=== PATIENT | female | born 1950 | race Caucasian/White ===

== ENCOUNTER 2018-04-30 10:39 | Emergency (ER) | payer MEDICARE, BC, SELFPAY ==
[2018-04-30 10:41] VITALS: BP 203/101; PULSE 74; RESP 16; TEMP 36.3; O2SAT 100; BMI 20.7
--- NOTE | 2018-04-30 11:32 | CT_ITS ---
STUDY: CT ABDOMEN AND PELVIS WITH CONTRAST REASON FOR EXAM: Female, 68 years old. Left inguinal pain. RADIATION DOSAGE (If Supplied By Facility): CTDIvol = ( 9.57 ) mGy, DLP = ( 271.03 ) mGycm TECHNIQUE: Transaxial images were obtained from the dome of the diaphragm to the symphysis pubis without oral contrast. 80ML ml of Isovue 300 contrast was administered. Sagittal and coronal images were reconstructed. Individualized dose optimization techniques were used for this CT. COMPARISON: Comparison is made with prior study dated December 06, 2014. FINDINGS: The visualized lung bases are unremarkable. The visualized portions of the heart are within normal limits. There is a 1.4 cm cyst in the left lobe of liver. 1 cm cyst is also seen along the anterior peripheral aspect of the right lobe of the liver. Normal gallbladder and extrahepatic biliary system. Normal spleen. Normal pancreas. Normal bilateral adrenal glands. Normal right kidney. Subcentimeters cysts are seen in the upper pole of the left kidney. Subcentimeter cyst in the lower pole of the left kidney as well. Normal visualized stomach. Normal small intestine. Normal colon. The appendix is visualized and appears normal. There is scattered atherosclerotic calcification of the abdominal aorta, without a demonstrated aneurysm. Normal inferior vena cava. Normal retroperitoneum. Normal urinary bladder. Small lymph nodes are seen in the inguinal regions bilaterally. Normal abdominal wall. There are degenerative changes of the visualized lumbar spine. CT/Abdomen/Pelvis W IV Cont ONLY IMPRESSION: Small hepatic cysts. Small left renal cysts. Electronically Signed: Alexander Alcala MD at 12:55 EST Tel [phone], Service support ,
[2018-04-30] MEDS: 0.9% Normal Saline 1,000 ML 1000 ML IV (11:50)
[2018-04-30] MEDS: Ondansetron 4 MG/2 ML Vial IV (11:51)
[2018-04-30] MEDS: Morphine 4 MG/ML Syringe IV ×2 (11:51→14:02)
[2018-04-30 12:03] LABS: Absolute Lymphocyte Count 1.07 X10^3/ul (0.83-4.51); Absolute Neutrophil Count 4.9 X10^3/uL (2.0-7.7); Basophil# 0.02 X10^3/uL; Basophil% 0.3 % (0-1); Eosinophil# 0.12 X10^3/uL; Eosinophils% 1.8 % (0-5); Hematocrit 41.5 % (37-47); Hemoglobin 14.1 g/dl (12.0-15.0); Lymphocyte # 1.07 X10^3/ul (4.0); Lymphocyte % 16.2 % (19-41); Mean Corpuscular Hgb 29.9 pg (27.0-32.0); Mean Corpuscular Volume 88.1 fL (81-99); Monocyte# 0.53 X10^3/uL; Neutrophil # 4.87 X10^3/uL (2.7-7.7); Neutrophil % 73.5 % (47-70); Platelet Count 199 K/mm3 (150-450); RBC Distribution Width CV 12.7 % (11.6-14.6); RBC Distribution Width SD 40.2 fl (35.1-43.9); Red Blood Count 4.71 M/mm3 (4.2-5.4); White Blood Count 6.6 K/mm3 (4.4-11.0)
[2018-04-30 12:04] LABS: POSITIVE COUNT NO; POSITIVE DIFFERENTIAL NO; POSITIVE MORPHOLOGY NO
[2018-04-30 12:12] LABS: Anion Gap 8 (5-15); BUN 17 mg/dL (7-18); BUN/Creat Ratio 23.8 RATIO (10-20); Calcium,Total 9.3 mg/dL (8.5-10.1); Chloride 106 mmol/L (98-107); Creatinine, Serum 0.72 mg/dL (0.55-1.02); EST Glomerular Filtration Rate 86 mL/min (>60); Est Glom Filt Rate - Afr Amer 104 mL/min (>60); Estimated Creatinine Clearance 39.71 ml/min; Glucose 90 mg/dL (74-106); Potassium 3.5 mmol/L (3.5-5.1); Sodium Level 141 mmol/L (136-145)
--- NOTE | 2018-04-30 12:48 | ED.VISSUMM ---
- ER Visit Summary Date of Service: 04/30/18 Chief Complaint: Lower abdominal pain History of Present Illness: The patient is a [address] Durham. She reports that she has low back pain. However, when asked about the location of that she points to the left buttock and the left inguinal region. She reports that radiates down the front of her left leg to her knee. States it is been present since April 17, but has gotten much worse today. It is a sharp pain that is 10 out of 10 severity. Is worsened by twisting, bending, or standing. She relieved partially by remaining still. She denies any numbness or weakness in her legs. No problems with her bowels or her bladder. No groin numbness. She does report that she has had a change in activity. 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 No fall or MVA. Patient denies any fever, chills, dysuria, frequency, or other complaints. Physical Examination: Vitals: Stable. Afebrile. General: Well-nourished and well-developed. Head: Normocephalic atraumatic. Neck: Supple, no lymphadenopathy. No JVD. Nontender. Cardiovascular: Regular rate and rhythm. No murmurs. Respiratory: No respiratory distress. Clear to auscultation bilaterally. Abdominal: Soft, moderate tenderness palpation in the left inguinal region, nondistended, normal bowel sounds. No guarding, rebound, or peritoneal signs. Back: Nontender. No vertebral tenderness. No pain in the sciatic notch over the left buttock. Extremities: Nontender, no edema. 2+ dorsalis pedis pulse bilaterally. Negative straight leg raise bilaterally. Skin: Normal color, no rash. Neurologic: Alert and oriented ?3. Cranial nerves II through XII are intact. Normal strength and sensation. 5 out of 5 dorsiflexion, plantarflexion, extensor hallucis longus bilaterally. Psych: Normal affect. Test Results: CBC is remarkable for segmented neutrophils of 74 lymphocytes of 16. Chem-7 is normal. Clinical Impression(s) from Imaging Studies Abdomen/Pelvis CT 04/30/18 11:32 IMPRESSION: Small hepatic cysts. Small left renal cysts. Electronically Signed: Alexander Alcala MD at 12:55 EST Tel [phone], Service support , Emergency Department Course and Treatment: Patient was treated with morphine and Zofran. She has had some improvement, but still continues to experience pain Treatment Plan: At this time I do not have an explanation for the patient's pain. She will be discharged with Percocet and Colace. Instructed for Dr. Durham in 1-2 days if not improving. Return to the emergency department for any worsening symptoms. Disposition: To home in improved and stable condition. Impression: 1. Left inguinal pain, uncertain cause. This note was generated with [employer] dictation software. It may contain incorrect words, spelling, and punctuation that were not noted in review of the chart prior to signing ED Disposition - Plan for ED Patient: Disposition: Home or Assisted Living Chief Complaint: Back Instructions: ED Abdominal Pain Unkn Cause Prescriptions: Oxycodone HCl/Acetaminophen [Percocet 5/325] 1 tablet PO Q6H PRN PRN 5 Days #20 tablet PRN Reason: Pain Docusate Sodium [Colace] 100 mg PO DAILY #20 capsule Referrals: Tammie Durham MD [COURTESY STAFF PHYSICIAN] - 3-5 Days if not improving
[2018-04-30 13:56] VITALS: BP 181/108; PULSE 71; RESP 16; O2SAT 100
[2018-04-30] MEDS: oxyCODONE 5 MG Tablet PO (14:26)
== END 2018-04-30 14:28 | disposition home or self-care (01) ==
LOC: ED 11:35
PROVIDERS: Emergency Provider Emergency Medicine
DX: R10.32 Left lower quadrant pain (principal)
CPT/HCPCS: 74177; 80048; 85025; 96361; 96374; 96375; 96376; 99285; J7030; Q9967; A4216; J2405

== ENCOUNTER 2018-05-02 17:06 | Emergency (ER) | payer MEDICARE, BC, SELFPAY ==
[2018-05-02 17:09] VITALS: BP 215/92; PULSE 63; RESP 16; TEMP 36.9; O2SAT 98; BMI 22.5
--- NOTE | 2018-05-02 17:39 | ED.VISSUMM ---
- ER Visit Summary Date of Service: 05/02/18 Chief Complaint: Left inguinal pain History of Present Illness: The patient is a 68 F presenting with left inguinal pain. This started approximately 1 week ago. Patient states she has been doing a lot of lifting of her mother. She is bedbound. She states when she picks her up she twists. She states she believes she may have pulled something while lifting. She was seen in the ED on April 30 for similar complaints. She had blood work and CT abdomen pelvis which were unremarkable. She was given a prescription for Percocet. She states this did not help and she is now using Excedrin. She denies fever. Denies chest pain or shortness of breath. Denies nausea or vomiting. Denies diarrhea or constipation. Denies urinary complaints. Denies back pain. Denies weakness or numbness. Denies incontinence. Denies other complaints. Physical Examination: Vitals are stable. Patient is afebrile. Alert no acute distress. HEENT exam is unremarkable. Neck is supple. Lungs are clear and equal bilaterally. Heart is regular rate and rhythm. Abdomen is soft nontender nondistended. No guarding or rebound. Left inguinal tenderness with no hernia palpated. Back nontender, negative straight leg raise Extremities nontender, normal distal pulse, no calf tenderness Skin is warm and dry. No rash No focal neurologic deficit. Normal strength and sensation Remainder of exam is unremarkable. Emergency Department Course and Treatment: Patient is given morphine, Zofran IM. She continues to have pain and was given Valium p.o. She states this improved her pain. She continues to have pain but declines admission. She is able to walk to the bathroom. She was given a prescription for Valium. She is advised to follow-up with her primary care physician tomorrow. She is advised return to ED for any worsening complaints. Disposition: Discharge home Impression: Left groin strain This note was generated with [employer] dictation software. It may contain incorrect words, spelling, and punctuation that were not noted in review of the chart prior to signing ED Disposition - Plan for ED Patient: Chief Complaint: Abd Pain Referrals: Tammie Durham MD [COURTESY STAFF PHYSICIAN] -
[2018-05-02] MEDS: Ondansetron 4 MG/2 ML Vial IM (17:55)
[2018-05-02] MEDS: morphine 10 MG/ML Syringe 8 MG IM (17:55)
[2018-05-02] MEDS: diazePAM 5 MG Tablet 2.5 MG PO (18:54)
--- NOTE | 2018-05-02 19:26 | ED.DEP ---
ED Disposition - Plan for ED Patient: Chief Complaint: Abd Pain Instructions: ED Strain Groin Prescriptions: Diazepam [Valium] 2 mg PO BID PRN PRN #10 tablet PRN Reason: Vertigo Referrals: Anu Vega DO [Primary Care Provider] -
[2018-05-02 19:33] VITALS: BP 143/72; PULSE 61; RESP 16; O2SAT 97
== END 2018-05-02 19:35 | disposition home or self-care (01) ==
LOC: ED 18:07
PROVIDERS: Emergency Provider Emergency Medicine; Family Provider Internal Medicine; PCP Internal Medicine
DX: S39.011A Strain of muscle, fascia and tendon of abdomen, initial encounter (principal); X50.3XXA Overexertion from repetitive movements, initial encounter; Y93.89 Activity, other specified
CPT/HCPCS: 96372; 99284; J2405

== ENCOUNTER → 2018-05-03 10:31 | Outpatient (CLI) | payer MEDICARE, BC, SELFPAY ==
--- NOTE | 2018-05-03 10:36 | RAD_ITS ---
STUDY: X-RAY - PELVIS AND LEFT HIP REASON FOR EXAM: Female, 68 years old. Hip pain after lifting a person. TECHNIQUE: Radiological exam, hip, unilateral, with pelvis when performed; 2 or 3 views. COMPARISON: CT of the abdomen and pelvis, April 30, 2018 and December 06, 2014. FINDINGS: There is a non-specific bowel gas pattern. Normal visualized soft tissue structures. There are atherosclerotic vascular calcifications. Normal bilateral iliac wings, sacroiliac joints and visualized sacrum. Normal bilateral superior and inferior pubic rami. Normal pubic symphysis. Normal bilateral ischial tuberosities. Normal visualized left femoral head. Normal left acetabulum. Normal left hip joint. RAD/HIP, UNI W/ Pelvis 2-3 Views IMPRESSION: Normal x-ray examination of the pelvis and left hip. Electronically Signed: Troy Mcdonald DO at 17:10 EST Tel [phone], Service support ,
--- NOTE | 2018-05-03 10:36 | RAD_ITS ---
STUDY: X-RAY - LUMBAR SPINE REASON FOR EXAM: Female, 68 years old. Lower back pain after lifting. TECHNIQUE: 5 view(s) of the lumbar spine were obtained. COMPARISON: CT of the abdomen and pelvis, December 06, 2014 and April 30, 2018. FINDINGS: Normal lumbar lordosis. There is no substantial scoliosis. There is anterolisthesis of L4 and L5 which is unchanged from the prior exam. The remainder the alignment is preserved. There is mild endplate spondylosis and disc space narrowing at multiple levels. This appears unchanged in degree from the there is facet joint degenerative change. There is no evidence of acute fracture or loss of vertebral axial height. There is no demonstrated spondylolysis of the pars interarticulares. There is atherosclerotic calcification of the abdominal aorta without a demonstrated aneurysm. RAD/L/S Spine Min 4 Views IMPRESSION: Stable degenerative changes of the lumbar spine. Electronically Signed: Troy Mcdonald DO at 17:12 EST Tel [phone], Service support ,
== END ==
PROVIDERS: Family Provider Internal Medicine; PCP Internal Medicine; Referring Provider Nurse Practitioner Gerontology; Visit Provider Nurse Practitioner Gerontology
DX: M25.552 Pain in left hip (principal); M47.896 Other spondylosis, lumbar region
CPT/HCPCS: 72110; 73502

== ENCOUNTER → 2018-05-19 12:23 | Outpatient (CLI) | payer MEDICARE, BC, SELFPAY ==
--- NOTE | 2018-05-19 12:38 | MRI_ITS ---
STUDY: MRI BILATERAL HIPS T PELVIS REASON FOR EXAM: Left hip/leg pain for 4 weeks. TECHNIQUE: Standardized fat and water weighted pulse sequences were obtained in all 3 orthogonal planes. COMPARISON: Radiographs 05/03/2018. FINDINGS: RIGHT HIP Normal hip joint without articular joint space narrowing. There is a small subchondral cyst in the anterior right acetabulum. Normal right labrum. Normal right femoral head. Normal right femoral neck and intratrochanteric region. Normal right gluteus minimus, medius and iliopsoas tendons and distal insertions. Normal right superior and inferior pubic rami. Normal right pubic symphysis. Normal right ischial tuberosity. Normal origin of the right hamstring tendons. Normal visualized right iliac wing, sacroiliac joint, and sacral ala. LEFT HIP Normal left hip joint without articular joint space narrowing. Normal left acetabulum. Normal left labrum. Normal left femoral head. Normal left femoral neck and intratrochanteric region. Normal left gluteus minimus, medius and iliopsoas tendons and distal insertions. Normal left superior and inferior pubic rami. Normal left pubic symphysis. Normal left ischial tuberosity. Normal origin of the left hamstring tendons. Normal visualized left iliac wing, sacroiliac joint, and sacral ala. There is a low-grade strain of the left obturator externus muscle (T2 axial images 29, 30). There is also a low-grade strain of the distal left lumbar paraspinous musculature (inversion recovery coronal image 6; T2 axial images 6, 7). MRI/Pelvis (Routine) IMPRESSION: Low-grade strains of the left obturator externus muscle and distal left lumbar paraspinous musculature. Electronically Signed: Wilmar Soliman MD at 15:06 EST Tel , Service support ,
--- NOTE | 2018-05-19 12:39 | MRI_ITS ---
STUDY: MRI LUMBAR SPINE WITHOUT CONTRAST REASON FOR EXAM: Female, 68 years old. LBP Lower Back Pain MRI - Lumbar. TECHNIQUE: Standardized fat and water weighted pulse sequences were obtained in the sagittal and axial planes. COMPARISON: X-ray dated May 03, 2018 FINDINGS: T12-L1: Normal endplates. Normal disc height, hydration and morphology. Normal bilateral facet joints. Normal central canal and bilateral lateral recesses. Normal bilateral intervertebral neural foramina. Normal lumbar lordosis. There is no substantial scoliosis. Normal conus medullaris that terminates at the T12 L1-2: Normal endplates. Normal disc height, hydration and morphology. Normal bilateral facet joints. Normal central canal and bilateral lateral recesses. Normal bilateral intervertebral neural foramina. L2-3: There is minimal disc space narrowing and endplate spondylosis. There is no significant disc herniation, central canal or foraminal stenosis. L3-4: There is mild disc space narrowing and endplate spondylosis. There is a mild disc bulge and facet arthropathy without significant central canal stenosis. There is a left foraminal protrusion with severe left foraminal stenosis. There is mild right foraminal stenosis. L4-5: There is moderate disc space narrowing and endplates spondylosis. There is extensive facet arthropathy with grade 1 anterolisthesis and mild disc bulge with mild central canal stenosis. There is mild bilateral foraminal stenosis. L5-S1: There is minimal disc space narrowing and endplates spondylosis. There is moderate facet arthropathy Normal visualized sacral ala. Normal visualized paraspinous soft tissue structures. MRI/Spine Lumbar (Routine) IMPRESSION: L3/L4: Disc protrusion with severe left foraminal stenosis. L4/L5: Severe facet arthropathy with grade 1 anterolisthesis. Electronically Signed: Haylie Hernandez MD at 11:52 EST Tel , Service support ,
--- OUTSIDE RECORDS SUMMARY | 2018-07-14 21:32 | XMS RPT_ITS | Continuity of Care Document ---
:1950 Author Organization [facility] Address [address] [place] [address] Phone Care Team Providers Name Role Phone Taniakellyanh GONZALEZOmaira E Unavailable Tammie Durham MD Unavailable Kiko Magana Unavailable Alexandra Julian Unavailable Unavailable Unavailable Unavailable Problems Name Dates Details Anxiety (F41.9, 300.00) Comments: doing much bbtter.BP down ativan now use rarely Status: Active Back pain, lumbosacral (M54.5, 724.2) Status: Active Body mass index (BMI) less than 19 (Z68.1, V85.0) Status: Active Body mass index (BMI) of 19.0-19.9 in adult (Z68.1, V85.1) Status: Active 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 Status: Active Hyperlipidemia (E78.5, 272.4) Comments: reveiwed with patient recent tests and betterthan was before. Status: Active Hypertension (I10, 401.9) Comments: think related stress so bbkler until get on celexa. Status: Active Left hip pain (M25.552, 719.45) Status: Active Pregnancies () Comments: 1 Status: Active Sciatica, left side (M54.32, 724.3) Comments: some relief with medrol, but parasthesia continues on left leg, MRI pending, ok to restart physical thearapy pt will get apt with José Status: Active Medications Name Dates Details DiazePAM 2 MG Oral Tablet Active 1 bid prn (2 MG) Gabapentin 300 MG Oral Capsule 1 (one) Capsule tid starting 05/13/18 for 30 days Quantity: 90 {Capsule} Refills: 0 Ordered:11-May-2018 Omaira Villeda CNP, CNP Lynda Start : 11-May-2018 Active Comments:Dx Code -- M54.32Okay to fill new script 05/15/18Changed dose from 1 daily to1 bid x 2 days (05/11 and 05/12)1 tid there after (05/13-there after)Will finish the fill from 05/03/18 before filling this new script, so can fill this script 05/18/18. OAARS ranNINETY NINETY NINETY NINETY Medrol 4 MG Oral Tablet Therapy Pack 1 (one) Milligram TAD for 0 days Quantity: 1 {Package} Refills: 0 Ordered:18-May-2018 Omaira Villeda CNP, CNP Lynda Start : 18-May-2018 Active Comments:with food Meloxicam 7.5 MG Oral Tablet 1 (one) Tablet Tablet PO QD for 30 days Quantity: 30 {Tablet} Refills: 0 Ordered:03-May-2018 Alexandra Julian Start : 03-May-2018 Active Comments:Take with food Oxycodone-Acetaminophen 5-325 MG Oral Tablet 1 (one) Tablet Tablet q8hrs prn for 7 days Quantity: 21 {Tablet} Refills: 0 Ordered:12-May-2018 Alexandra Julian Start : 12-May-2018 Active Comments:Oarrs run M25.552 Acute left hip painTwenty one AMOXICILLIN, 875MG (Oral Tablet) 1 Tablet bid for 10 days Quantity: 20 {Tablet} Refills: 0 Ordered:22-Jan-2012 Tammie Durham MD Start : 22-Jan-2012 End : 01-Feb-2012 Inactive Ativan 0.5 MG Oral Tablet 1 Tablet qd prn for 0 days Quantity: 30 {Tablet} Refills: 0 Ordered:03-May-2018 Ekaterina Fajardo LPN Start : 13-Jul-2015 End : 03-May-2018 Inactive Comments:thirty CeleXA 20 MG Oral Tablet 1 Tablet qd for 0 days Quantity: 30 {Tablet} Refills: 3 Ordered:03-May-2018 Ekaterina Fajardo LPN Start : 10-Aug-2015 End : 03-May-2018 Inactive PREDNISONE, 20MG (Oral Tablet) Tablet daily for 0 days Quantity: 7 {Tablet} Refills: 0 Ordered:20-May-2010 Terri Ye LPN Start : 16-Mar-2009 End : 20-May-2010 Inactive TOPROL XL, 25MG (Oral Tablet Extended Release 24 Hour) 1 (one) Tablet ER 24HR daily for 0 days Quantity: 30 {Tablet} Refills: 0 Ordered:13-Jul-2015 Tammie Durham MD Start : 13-Jul-2015 End : 13-Jul-2015 Inactive ZITHROMAX Z-YOLANDA, 250MG (Oral Tablet) 1 Tablet uad for 0 days Refills: 0 Ordered:20-May-2010 Terri Ye LPN Start : 16-Mar-2009 End : 20-May-2010 Inactive Allergies and Adverse Reactions Name Dates Details No Known Drug Allergies (Allergy) Status: Active Past Medical History Name Dates Details Bronchitis (J40, 490) Status: Inactive as of 07-Jun-2015 Cough (R05, 786.2) Status: Inactive as of 07-Jun-2015 Elevated blood-pressure reading without diagnosis of hypertension (R03.0, 796.2) Status: Resolved as of 24-Jun-2010 Encounter for screening mammogram for breast cancer (Renamed from Visit for screening mammogram) (Z12.31, V76.12) Status: Inactive as of 13-Jul-2015 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, 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) Comments: 12-26 ct good Status: Resolved as of 02-Jan-2009 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 [place] [address] Fax REHABILITATION SERVICES INITIAL EVALUATION MR#: [id number] Acct: [id number] Name: ANNALISA CISNEROS Rep #: [id number] : 1950 68 From: Laura Anand PT, Cert. MDT Referring Dr.: ALIE Rich Status: REG RCR Insurance: [employer] PART A B [facility] Patient's Visit Information ANNALISA CISNEROS is a 68 year old F referred to Physical Therapy by ALIE Martini with a diagnosis of LEFT HIP PAIN, LEFT SCIATICA AND LUMBOSACRAL B ACK PAIN.. Date of Evaluation: 05/05/18 Physical Therapist: Laura Anand - Visit Plan Frequency: 2-3x /Week Duration: 4-6 Weeks Plan: MODALITIES NEEDED. POSTURE CORRECTION/STRENGTHENING, INSTRUCTI ON IN APPROPRIATE BODY MECHANICS AND ACTIVITY MODIFICATIONS. DLS STARTING WITH A NEUTRAL SPINE PROGRESSING ROM TOLERATED. HIEN LE ROM, STRETCHING AND STRENGTHENING. HEP INSTRUCTION. 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 OFF WORK CURRENTLY DUE TO MOTHER PASSING AWAY YESTERDAY AND HOPING SHE WILL BE ABLE TO GET BACK TO WORK NEXT Thursday05/11/18. Disability: N0. Present symptoms: LEFT BUTTOCK PAIN, LEFT GROIN PAIN, LEFT THIGH PAIN - STOPS AT THE KNEE. PATIENT ALSO HAS NUMBESS AND TINGLING IN THE FRONT OF HER LEFT THIGH. HER LEFT LEG DOESN'T REALLY FEEL WEAK THOUGH. SHE REPORTS SHE DOES NOT HAVE ANY LOW BACK PAIN AND THAT SHE HAS BEEN TRYING TO TELL EVERYONE THAT. NO RIGHT LE SX'S. Present since: APR 14 2018. Pain Scale: WORST 10/10, LEAST 5/10. Currently: 5/10. Comme nced as a result of: NO APPARENT REASON. Symptoms at onset: LEFT BUTTOCK AND LEFT GROIN. Worse: RUNNING, TRYING TO STAND UP STRAIGHT, WALKING, LIFTING, TWISTING, GETTING IN/OUT OF CAR. TRYING TO SLEEP I N BED. Better: LYING ON COUCH WITH HEAD UP, HEAT, EXCEDERIN, OXICODONE, GABAPENTIN, MALOXICAM. Disturbed sleep: YES. Previous history/Previous treatment: NO BACK SURGERY. NO CORINNE, NO CHIRO. NO PHYSICAL T HERAPY. PATIENT DENIES ANY HISTORY OF LOW BACK PROBLEMS. PATIENT ALSO DENIES ANY HISTORY OF HIP PROBLEMS. Coughing/sneezing/straining: NO. Gait: PATIENT REPORTS WALKING IS DIFFICULT AND SHE CAN NOT WALK AT A NORMAL PACE AND SHE CAN NOT STAND UP STRAIGHT. SHE LIMPS BECAUSE OF THE PAIN. Difficulty initiating urinatin: NO. Accidents: NO. Unexplained weight loss: NO. Imaging: NORMAL X-RAY OF PELVIS AND LE FT HIP. ABDOMINAL CAT SCAN ALSO APPEARS NORMAL. LUMBAR X-RAY 05/03/18: FINDINGS: Normal lumbar lordosis. There is no substantial scoliosis. There is. anterolisthesis of L4 and L5 which is unchanged from the prior exam. The. remainder the alignment is preserved. There is mild endplate spondylosis and disc space narrowing at multiple. levels. This appears unchanged in degree from the there is facet join t. degenerative change. There is no evidence of acute fracture or loss of. vertebral axial height. There is no demonstrated spondylolysis of the pars. interarticulares. There is atherosclerotic calcific ation of the abdominal aorta without a. demonstrated aneurysm. PMH: UNREMARKABLE. Recent major surgery: NO. PLOF (Prior Level of Function): UNLIMITED. - Objective Sitting/Standing Posture: POOR. PATIEN T IS UNABLE TO SIT OR STAND UP STRAIGHT. Lordosis: NORMAL. Lateral shift: NO. Relevant shift: N/A. Active Correction of posture: WORSE. Other Observations: INDEP GAIT INTO PT WITHOUT ANY ASSISTIVE DEVIC ES LIMPING ON THE LEFT LE AND WITH DECREASED CADANCE AND INCREASED TRUNK FLEX. NO FULLY EXTENDING LEFT HIP. Motor deficit: RIGHT LE STRENGTH 5/5 WITH MMT'ING EXCEPT RIGHT HIP 4/5 PROVOKING PAIN LEFT ANT ERIOR HIP. LLE STRENGTH: HIP 4/5 WITH ONLY MILD INCREASED PAIN WITH FLEX TESTING BUT NOT ABD, ADD, IR OR ER. , KNEE EXT 4+/5, KNEE FLEX 5/5, ANKLE DORSIFLEXION 4/5. LEFT ANTERIOR HIP PAIN WITH HIP FLEX TESTING BUT ONLY MILDLY INCREASES WITH MMT'ING OF THE REST OF HER LLE. Sensory deficit: NO. ROM deficit: DECREASED LEFT HIP EXTENSION IN STANDING. Reflexes: RIGHT LE 2/3, LEFT QUAD AND ACHILLES 1/2. Dur al Signs: POSTIVE LLE. NEGATIVE RIGHT. Lumbar mvmt loss: flex - MOD. ext - BUBBA. R SG - MOD. L SG - BUBBA. Core strength: POOR. Palpation: SHE REALLY DOES NOT HAVE ANY ACUTE TENDERNESS OF HER THORACIC SPIN E, LUMBAR SPINE, SACRAL AREAS, PELVIS, GREATER TROCH OR BUTTOCKS BUT SHE IS TENDER WITH PALPATION OF THE PROXIMAL LEFT FEMUR AND ANTERIOR HIP. TREATMENT: GAIT TRAINING WITH STRAIGHT CANE TO IMPROVE SAFE TY AND DECREASE LLE PAIN. PATIENT ABLE TO DEMO GOOD SEQUENCING AFTER INSTRUCTION GIVEN AND DEVIATIONS IMPROVED WITH CANE ALONG WITH SAFETY AND PAIN. PATIENT REPORTS SHE HAS A CANE AND WALKER AT HOME. - Goals Goal 1:: DECREASE C/O LLE SX'S. Goal Time Frame: 4-6 Weeks Goal 2:: IMRPOVE SITTING, STANDING, WALKING, BENDING, ADL AND SLEEP FUNCTION Goal Time Frame: 4- 6 Weeks Goal 3:: INSTRUCT IN PROPHYLAXIS Goal Time Frame: 4-6 Weeks - Rehabilitation Potential Rehabilitation Potential: Fair - Anticipated Interventions Patient/Client Instruction: Educate patient on: Condition, Plan of Care, Risk Factors, Benefits of Fitness Program For the Purpose of:: To improve self management Therapeutic Exercise to Include: Strength training, Body mechanics, Postural training, Flexibilty training, Gait and locomoto r training, Passive ROM, Active ROM, Dynamic Lumbar Stabilization For the Purpose of:: To decrease pain, To increase ROM, To improve muscle performance and motor function, To improve ability to perform ADL's, To increase tolerance to activity/condition/position, To improve ability of physical actions for home/community/work/leisure, To improve gait and locomotor functions Thermo therapy (hot pack): Harry ritter Ultrasound (thermal/non thermal): Yes For the Purpose of:: To decrease pain, To decrease swelling/inflammation, To increase ROM, To improve nutrient delivery to tissue Thank you for the opportunit y to evaluate your patient. For Medicare and Medicare HMO plans, please review the plan of care and approve it. It will need to be FAXED BACK to us at [phone] for Medicare purposes. Please let m e know if there are questions or concerns regarding this plan of care. Physician Signature: Date: <Electronically signed by Laura Anand PT, Cert. MDT> 05/05/18 1749 CC: ALIE Rich; Anu Vega DO RAFFI Signed For Medicare only, by signing this I certify the plan of care. Physicians Signature Date 03-May-2018 HIP, UNI W/ Pelvis 2-3 Views Result: Comments: See Note; NOTES: [facility] Imaging Services [address] [place] [address] HIP, UNI W/ Pelvis 2-3 Views MR#: [id number] Acct: [id number] Name: ANNALISA CISNEROS Rep #: [id number] : 1950 F 68 From: Troy Mcdonald DO PCP: Anu Vega DO Status: REG CLI Study: HIP, UNI W/ Pelvis 2-3 Views Date of Exam: 05/03/18 Exam# [id number] Ordering Dr: Terri Rich ST UDY: X-RAY - PELVIS AND LEFT HIP REASON FOR EXAM: Female, 68 years old. Hip pain after lifting a person. TECHNIQUE: Radiological exam, hip, unilateral, with pelvis when performed; 2 or 3 views. DENNY RISON: CT of the abdomen and pelvis, April 30, 2018 and December 06, 2014. FINDINGS: There is a non-specific bowel gas pattern. Normal visualized soft tissue structure s. There are atherosclerotic vascular calcifications. Normal bilateral iliac wings, sacroiliac joints and visualized sacrum. Normal bilateral superior and inferior pubic rami. Normal pubic symphysis. N ormal bilateral ischial tuberosities. Normal visualized left femoral head. Normal left acetabulum. Normal left hip joint. RAD/HIP, UNI W/ Pelvis 2-3 Views IMPRESSION: Normal x-ray examination of the pelvis and left hip. Electronically Signed: Troy Mcdonald DO at 17:10 EST Tel [phone], Service support , Fax CC: ALIE Rich; Anu Vega DO Material Damage Adjuster: Signed 03-May-2018 L/S Spine Min 4 Views Result: Comments: See Note; NOTES: [facility] Imaging Services [address] [place] [address] L/S Spine Min 4 Views MR#: [id number] Acct: [id number] Name: ANNALISA CISNEROS Rep #: [id number] : 1950 F 68 From: Troy Mcdonald DO PCP: Anu Vega DO Status: REG CLI Study: L/S Spine Min 4 Views Date of Exam: 05/03/18 Exam# [id number] Ordering Dr: Terri Rich STUDY: X-RAY - L UMBAR SPINE REASON FOR EXAM: Female, 68 years old. Lower back pain after lifting. TECHNIQUE: 5 view(s) of the lumbar spine were obtained. COMPARISON: CT of the abdomen and pelvis, December 06, 2014 and N ov2017. FINDINGS: Normal lumbar lordosis. There is no substantial scoliosis. There is anterolisthesis of L4 and L5 which is unchanged from the prior exam. T he remainder the alignment is preserved. There is mild endplate spondylosis and disc space narrowing at multiple levels. This appears unchanged in degree from the there is facet joint degenerative mercado ge. There is no evidence of acute fracture or loss of vertebral axial height. There is no demonstrated spondylolysis of the pars interarticulares. There is atherosclerotic calcification of the abdomina l aorta without a demonstrated aneurysm. RAD/L/S Spine Min 4 Views IMPRESSION: Stable degenerative changes of the lumbar spine. Electronically S igned: Troy Mcdonald DO at 17:12 EST Tel [phone], Service support , CC: ALIE Rich; Anu Vega DO Material Damage Adjuster: Signed 02-May-2018 Discharge Instruction Result: Comments: See Note; NOTES: [facility] Medical Records Department [address] [place] [address] Discharge Instruction 05/02/181925 MR#: [id number] Acct: [id number] Name: Kathy CISNEROS ROSAMARIA Rep #: [id number] : 1950 68 From: Ayleen Storm MD PCP: Anu Vega DO Status: REG ER ED Disposition - Plan for ED Patient: Chief Complaint: Abd Pain Instructions: ED Strain Groin Prescriptions: Diazepam [Valium] 2 mg PO BID PRN PRN #10 tablet PRN Reason: Vertigo Referrals: Anu Vega DO [Primary Care Provider] - What to do if you have Problems For any increased pain, s hortness of breath, bleeding, nausea or vomiting, chest pain, or any unexpected problems, contact your Primary Care Provider. Call [facility] ([phone]) or report to the closest Emergency Room . Call 911 if necessary. 05/02/181926 <Electronically signed by Ayleen Storm MD> Date Ayleen Storm MD Cosigner Signature (If Indicated): Date CC: Anu Gary STAFFORD 02-May-2018 Emergency Department Summary Result: Comments: See Note; NOTES: [facility] Medical Records Department [address] [place] [address] Emergency Department Summary 05/02/18 1739 MR#: [id number] Acct: [id number] Name: ANNALISA CISNEROS Rep #: [id number] : 1950 68 From: Ayleen Storm MD PCP: Anu Vega DO Status: REG ER - ER Visit Summary Date of Service: 05/02/18 Chief Complaint: Left inguinal pain Histo ry of Present Illness: The patient is a 68 F presenting with left inguinal pain. This started approximately 1 week ago. Patient states she has been doing a lot of lifting of her mother. She is bedbound. She states when she picks her up she twists. She states she believes she may have pulled something while lifting. She was seen in the ED on April 30 for similar complaints. She had blood work and CT abdomen pelvis which were unremarkable. She was given a prescription for Percocet. She states this did not help and she is now using Excedrin. She denies fever. Denies chest pain or shortness of breath. Denies nausea or vomiting. Denies diarrhea or constipation. Denies urinary complaints. Denies back pain. Denies weakness or numbness. Denies incontinence. Denies other complaints. Physical Examination : Vitals are stable. Patient is afebrile. Alert no acute distress. HEENT exam is unremarkable. Neck is supple. Lungs are clear and equal bilaterally. Heart is regular rate and rhythm. Abdomen is soft no ntender nondistended. No guarding or rebound. Left inguinal tenderness with no hernia palpated. Back nontender, negative straight leg raise Extremities nontender, normal distal pulse, no calf tenderness Skin is warm and dry. No rash No focal neurologic deficit. Normal strength and sensation Remainder of exam is unremarkable. Emergency Department Course and Treatment: Patient is given morphine, Zofra n IM. She continues to have pain and was given Valium p.o. She states this improved her pain. She continues to have pain but declines admission. She is able to walk to the bathroom. She was given a pres cription for Valium. She is advised to follow-up with her primary care physician tomorrow. She is advised return to ED for any worsening complaints. Disposition: Discharge home Impression: Left groin strain This note was generated with [employer] dictation software. It may contain incorrect words, spelling, and punctuation that were not noted in review of the chart prior to signing ED Disposition - Plan for ED Patient: Chief Complaint: Abd Pain Referrals: Tammie Durham MD [COURTESY STAFF PHYSICIAN] - What to do if you have Problems For any increased pain, shortness of breath, bleeding, naus ea or vomiting, chest pain, or any unexpected problems, contact your Primary Care Provider. Call [facility] ([phone]) or report to the closest Emergency Room. Call 911 if necessary. 1925 <Electronically signed by Ayleen Storm MD> Date Ayleen Storm MD Cosigner Signature (If Indicated): Date ____ CC: Anu Vega 07-Jun-2015 EKG ([id number]) Result: [MEASUREMENTS ANALYSIS] Date of Test: 06/07/2015 08:14:11; Heart Rate: 59; [place] Interval: 164; QRS: 100; QT Interval: 420; Corrected QT Interval (QTc): 419; P Wave Sedan: 25; QRS Wave Sedan: -1; T Wave Sedan : 42; Blood Pressure: 184/100 [ECG DIAGNOSTIC STATEMENTS] Date of Test: 06/07/2015 08:14:11; Summary: Sinus Bradycardia WITHIN NORMAL LIMITS 17-Dec-2014 Emergency Department Summary Result: Comments: See Note; NOTES: [facility] Medical Records Department [address] [place] [address] Emergency Department Summary MR#: [id number] Acct: [id number] Name: ANNALISA CISNEROS Rep #: [id number] : 1950 64 From: Ayleen Storm MD PCP: Tammie Durham MD Status: DEP ER DATE OF SERVICE: 12/06/2014 CHIEF COMPLAINT: Abdominal pain. HISTORY OF PRESENT ILLNESS : The patient is a 64-year-old female who complains of left-sided abdominal and flank pain, which started at 1:00 a.m. associated with nausea, no vomiting, no diarrhea. She denies hematuria. She stat es she has had a history of kidney stones and this feels similar. She denies fever, chills or other complaints. PHYSICAL EXAMINATION: VITAL SIGNS: Stable. Afebrile. GENERAL: Alert, in no acute dist ress. HEART: Regular rate and rhythm. LUNGS: Clear and equal. ABDOMEN: Soft, nontender, nondistended. No guarding or rebound. She has mild left CVA tenderness. Remainder of the exam is unremarkable . EMERGENCY DEPARTMENT COURSE: Urinalysis shows 0 white cells, 0-[address] flank shows a left hydro with a 3 mm calculus at the left UVJ. The patient was given 1 dose of morphine and Zofran wi th improvement of her symptoms. Her pain is down to 0/10. She is advised to follow up with Dr. Durham. She is given a prescription for a short course of Percocet and will be discharged. Advised to r eturn to the ED for worsening symptoms. IMPRESSION: Urolithiasis. DISPOSITION: The patient will be discharged. Ayleen Storm MD T: NTS JOB: [id number] 12/17/14 0716 <Electronica lly signed by Ayleen Storm MD> Date Ayleen Storm MD CC: Tammie Durham MD Date Dictated: 12/06/141556 Date Transcribed: 12/06/141556 Material Damage Adjuster: Signed 06-Dec-2014 Discharge Instruction Result: Comments: See Note; NOTES: [facility] Medical Records Department [address] [place] [address] Discharge Instruction 12/06/141550 MR#: [id number] Acct: [id number] Name: ANNALISA CISNEROS Rep #: [id number] : 1950 64 From: Ayleen Storm MD PCP: Tammie Durham MD Status: REG ER ED Disposition - Plan for ED Patient: Chief Complaint: Abd Pain Instructions: ED Kidney Stone W/ Colic Prescriptions: Oxycodone HCl/Acetaminophen [Percocet 5/325] 1 - 2 tablet PO Q4H PRN PRN #20 tablet PRN Reason: Pain What to do if you have Problems For any increased pain, shortness of breath, bleeding, nausea or vomiting, chest pain, or any unexpected problems, contact your doctor. Call [facility] ([phone]) or report to the closest Emergency Room. Call 911 if necessary. 12/06/14 1552 <Electronically signed by Ayleen Storm MD> Date Ayleen Storm MD Cosigner Signature (If In dicated): Date CC: Tammie Durham MD 06-Dec-2014 Abdomen/Pelvis without Cont Result: Comments: See Note; NOTES: [facility] Imaging Services [address] [place] [address] CAT Scan Report MR#: [id number] Acct: [id number] Name: ANNALISA CISNEROS Rep #: [id number] : 1950 F 64 From: Alexander Alcala MD PCP: Tammie Durham MD Status: REG ER Study: Abdomen/Pelvis without Cont Date of Exam: 12/06/14 Exam# [id number] Ordering Dr: Ayleen Storm MD S TUDY: CT ABDOMEN AND PELVIS WITHOUT CONTRAST REASON FOR EXAM: Female, 64 years old. Left lower abdominal and left flank pain. RADIATION DOSAGE (If Supplied By Facility): CTDIvol = ( 6.02 ) mGy, DLP = ( 288.51 ) mGycm TECHNIQUE: Transaxial images were obtained from the dome of the diaphragm to the symphysis pubis without oral contrast, and without intravenous contrast. Sagittal and coronal im ages were reconstructed. COMPARISON: Comparison is made with prior study dated January 11, 2007. FINDINGS: The visualized lung bases are unremarkable. The visualiz ed portions of the heart are within normal limits. Stable 1 cm cyst in the left lobe of the liver. Normal gallbladder and extrahepatic biliary system. Normal spleen. Normal pancreas. Normal bilate ral adrenal glands. Normal right kidney. There is engorgement of the left kidney with left perinephric stranding and thickening of the Gerota's fascia. A 2 mm calculus is seen in the lower pole praveen x of the left kidney. There is evidence of mild left hydronephrosis and hydroureter due to a 3 mm calculus at the left ureteral vesicle junction. There is a small hiatal hernia. Normal small intesti ne. Normal colon. The appendix is visualized and appears normal. There is diffuse atherosclerotic calcification of the abdominal aorta, without a demonstrated aneurysm. Normal inferior vena cava. No rmal retroperitoneum. Normal urinary bladder. Normal abdominal wall. There are mild degenerative changes of the visualized lumbar spine. IMPRESSION: Left hy dronephrosis and hydroureter due to a 3 mm calculus at left ureterovesical junction. There is evidence of left perinephric stranding and inflammatory changes with thickening of the left Gerota's fasci a. 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 run 18 miles a week Status: Active Living Situation Comments: , Lives with spouse Status: Active No Drug Use Status: Active Non Drinker/No Alcohol Use Status: Active Non Smoker/No Tobacco Use Status: Active Tobacco use: Never smoker. Status: Active Smoking Status Name Dates Details Never smoker Vital Signs Date Test Result Details :30 Temperature 98.4 f Comments: Method: Temporal Pulse 86 /min Comments: Pattern: Regular Respiration Rate 18 /min Comments: Pattern: Unlabored O2 SAT 98 % Comments: Room air BP Systolic 148 mm[Hg] Comments: Patient Position: Sitting; Cuff Location: Left Arm; Cuff Size: Standard BP Diastolic 92 mm[Hg] Comments: Patient Position: Sitting; Cuff Location: Left Arm; Cuff Size: Standard Weight 101 lb Height 60 in Body Mass Index Calculated 19.72 kg/m2 Body Surface Area Calculated 1.4 m2 :57 Temperature 98.1 f Comments: Method: Temporal Pulse 77 /min Comments: Pattern: Regular Respiration Rate 16 /min Comments: Pattern: Unlabored O2 SAT 99 % Comments: Room air BP Systolic 150 mm[Hg] Comments: Patient Position: Sitting; Cuff Location: Left Arm; Cuff Size: Standard BP Diastolic 94 mm[Hg] Comments: Patient Position: Sitting; Cuff Location: Left Arm; Cuff Size: Standard Weight 101 lb Height 60 in Body Mass Index Calculated 19.72 kg/m2 Body Surface Area Calculated 1.4 m2 :35 Temperature 97.8 f Comments: Method: Temporal Pulse 79 /min Comments: Pattern: Regular Respiration Rate 16 /min Comments: Pattern: Unlabored O2 SAT 96 % Comments: Room air BP Systolic 152 mm[Hg] Comments: Patient Position: Sitting; Cuff Location: Left Arm; Cuff Size: Standard BP Diastolic 88 mm[Hg] Comments: Patient Position: Sitting; Cuff Location: Left Arm; Cuff Size: Standard Weight 101 lb Height 60 in Body Mass Index Calculated 19.72 kg/m2 Body Surface Area Calculated 1.4 m2 :31 Temperature 97.6 f Comments: Method: Temporal Pulse 64 /min Comments: Pattern: Regular Respiration Rate 18 /min Comments: Pattern: Unlabored O2 SAT 99 % Comments: Room air BP Systolic 128 mm[Hg] Comments: Patient Position: Sitting; Cuff Location: Left Arm; Cuff Size: Standard BP Diastolic 84 mm[Hg] Comments: Patient Position: Sitting; Cuff Location: Left Arm; Cuff Size: Standard Weight 116 lb Height 60 in Body Mass Index Calculated 22.65 kg/m2 Body Surface Area Calculated 1.48 m2 :04 Temperature 97.9 f Comments: Method: Temporal Pulse 68 /min Comments: Pattern: Regular Respiration Rate 18 /min Comments: Pattern: Unlabored O2 SAT 98 % Comments: Room air BP Systolic 184 mm[Hg] Comments: Patient Position: Sitting; Cuff Location: Left Arm; Cuff Size: Standard BP Diastolic 100 mm[Hg] Comments: Patient Position: Sitting; Cuff Location: Left Arm; Cuff Size: Standard Weight 120 lb Height 60 in Body Mass Index Calculated 23.44 kg/m2 Body Surface Area Calculated 1.5 m2 :49 Temperature 98.2 f Comments: Method: Oral Pulse 72 /min Comments: Pattern: Regular Respiration Rate 18 /min Comments: Pattern: Unlabored BP Systolic 124 mm[Hg] Comments: Patient Position: Sitting; Cuff Location: Left Arm; Cuff Size: Standard BP Diastolic 78 mm[Hg] Comments: Patient Position: Sitting; Cuff Location: Left Arm; Cuff Size: Standard Weight 120 lb Height 60 in Body Mass Index Calculated 23.44 kg/m2 Body Surface Area Calculated 1.5 m2 :05 Pulse 68 /min Comments: Pattern: Regular Respiration Rate 20 /min Comments: Pattern: Unlabored BP Systolic 130 mm[Hg] Comments: Patient Position: Sitting; Cuff Location: Left Arm; Cuff Size: Large BP Diastolic 88 mm[Hg] Comments: Patient Position: Sitting; Cuff Location: Left Arm; Cuff Size: Large Weight 127 lb :30 Pulse 76 /min Comments: Pattern: Regular Respiration Rate 20 /min Comments: Pattern: Unlabored BP Systolic 184 mm[Hg] Comments: Patient Position: Sitting; Cuff Location: Left Arm; Cuff Size: Standard BP Diastolic 102 mm[Hg] Comments: Patient Position: Sitting; Cuff Location: Left Arm; Cuff Size: Standard Weight 132.4375 lb Height 60 in Body Mass Index Calculated 25.86 kg/m2 Body Surface Area Calculated 1.57 m2 :30 Temperature 97.6 f Comments: Method: Oral Pulse 84 /min Comments: Pattern: Regular Respiration Rate 18 /min Comments: Pattern: Unlabored O2 SAT 99 % Comments: Room air BP Systolic 144 mm[Hg] Comments: Patient Position: Sitting; Cuff Location: Left Arm; Cuff Size: Standard BP Diastolic 88 mm[Hg] Comments: Patient Position: Sitting; Cuff Location: Left Arm; Cuff Size: Standard Weight 126 lb Height 0 in Head Circumference 0.00 cm :19 Pulse 76 /min Comments: Pattern: Regular Respiration Rate 16 /min Comments: Pattern: Unlabored BP Systolic 118 mm[Hg] Comments: Patient Position: Sitting; Cuff Location: Left Arm; Cuff Size: Standard BP Diastolic 78 mm[Hg] Comments: Patient Position: Sitting; Cuff Location: Left Arm; Cuff Size: Standard Weight 126.0375 lb Height 0 in Head Circumference 0.00 cm :53 Temperature 98.2 f Comments: Method: Oral Pulse 72 /min Comments: Pattern: Regular Respiration Rate 18 /min Comments: Pattern: Unlabored BP Systolic 122 mm[Hg] Comments: Patient Position: Sitting; Cuff Location: Left Arm; Cuff Size: Standard BP Diastolic 78 mm[Hg] Comments: Patient Position: Sitting; Cuff Location: Left Arm; Cuff Size: Standard Weight 126.05 lb Height 60 in Body Mass Index Calculated 24.62 kg/m2 Body Surface Area Calculated 1.53 m2 Head Circumference 0.00 cm :13 Temperature 97.6 f Comments: Method: Oral Pulse 74 /min Comments: Pattern: Regular Respiration Rate 20 /min Comments: Pattern: Unlabored BP Systolic 120 mm[Hg] Comments: Patient Position: Sitting; Cuff Location: Left Arm; Cuff Size: Standard BP Diastolic 80 mm[Hg] Comments: Patient Position: Sitting; Cuff Location: Left Arm; Cuff Size: Standard Weight 125 lb Height 59 in Body Mass Index Calculated 25.25 kg/m2 Body Surface Area Calculated 1.51 m2 Head Circumference 0.00 cm Results Date Description Value Details :50 Basic Metabolic Profile (BMP) Comments: [facility] [id number] [place], [place], [id number] GAP 8 (Normal) Range: 5-15 CO2 27.0 mmol/L (Normal) Range: 21.0-32.0 CL 106 mmol/L (Normal) Range: 98-107 K 3.5 mmol/L (Normal) Range: 3.5-5.1 NA 141 mmol/L (Normal) Range: 136-145 CA 9.3 mg/dL (Normal) Range: 8.5-10.1 BUN/CRE 23.8 {RATIO} (Abnormal) Range: 10-20 Estimated CRCL 39.71 ml/min (Normal) EST GFR - AA 104 mL/min (Normal) Comments: GFR Calc EST GFR 86 mL/min (Normal) Comments: Non- GFR Calc CREAT,SERUM 0.72 mg/dL (Normal) Range: 0.55-1.02 Comments: The validity of the calculated GFR AND GFRAA in patients over70 years has not been determined. Clinical correlation isessential. BUN 17 mg/dL (Normal) Range: 7-18 GLU 90 mg/dL (Normal) Range: 74-106 Comments: Please note revised GLUCOSE reference range [id number]/02/2018. [id number] CBC W/Diff, Automated Comments: [facility] [address] [place], [place], [id number] Absolute Lymph 1.07 {X10_3/ul} (Normal) Range: 0.83-4.51 Absolute Neut 4.9 {X10_3/uL} (Normal) Range: 2.0-7.7 IM GRAN % 0.200 % (Normal) Range: 0.0-0.9 Comments: IG% - Immature Granulocytes (promyelocytes, myelocytes andmetamyelocytes) > 1% indicates that a LEFT SHIFT is Present. BASO% 0.3 % (Normal) Range: 0-1 EO% 1.8 % (Normal) Range: 0-5 MONO% 8.0 % (Normal) Range: 0-10 LY% 16.2 % (Abnormal) Range: 19-41 NEUT% 73.5 % (Abnormal) Range: 47-70 MPV 10.0 fL (Normal) Range: 6.2-12.0 PLT 199 K/mm3 (Normal) Range: 150-450 RDW SD 40.2 fL (Normal) Range: 35.1-43.9 RDW CV 12.7 % (Normal) Range: 11.6-14.6 MCHC 34.0 {g/gl} (Normal) Range: 32-36 MCH 29.9 pg (Normal) Range: 27.0-32.0 MCV 88.1 fL (Normal) Range: 81-99 HCT 41.5 % (Normal) Range: 37-47 HGB 14.1 g/dL (Normal) Range: 12.0-15.0 RBC 4.71 {M/mm3} (Normal) Range: 4.2-5.4 WBC 6.6 K/mm3 (Normal) Range: 4.4-11.0 :24 MICROALBUMIN: CREATININE RATIO Comments: PATIENT WAS FASTINGPERFORMED BY: [facility] HospitalPotpmr5925 [facility] [id number] ([id number]) AND ([id number]) Microalb/Creat Ratio 13.8 {mg/g_creat} (Normal) Range: 0.0-30.0 Microalbumin, Urine 24.0 ug/mL (Abnormal) Range: 0.0-17.0 Creatinine, Urine 173.4 mg/dL (Normal) Range: 15.0-278.0 :24 METABOLIC PANEL, COMPREHENSIVE Comments: PATIENT WAS FASTINGPERFORMED BY: [employer]6[address] [facility] [id number] ([id number]) ALT (SGPT) 19 [iU]/L (Normal) Range: 0-32 AST (SGOT) 19 [iU]/L (Normal) Range: 0-40 Alkaline Phosphatase, S 99 [iU]/L (Normal) Range: 39-117 Bilirubin, Total 0.3 mg/dL (Normal) Range: 0.0-1.2 A/G Ratio 2.1 (Normal) Range: 1.1-2.5 Globulin, Total 2.3 g/dL (Normal) Range: 1.5-4.5 Albumin, Serum 4.8 g/dL (Normal) Range: 3.6-4.8 Protein, Total, Serum 7.1 g/dL (Normal) Range: 6.0-8.5 Calcium, Serum 9.8 mg/dL (Normal) Range: 8.7-10.3 Carbon Dioxide, Total 24 mmol/L (Normal) Range: 18-29 Chloride, Serum 100 mmol/L (Normal) Range: 97-108 Potassium, Serum 4.9 mmol/L (Normal) Range: 3.5-5.2 Sodium, Serum 141 mmol/L (Normal) Range: 134-144 BUN/Creatinine Ratio 24 (Normal) Range: 11-26 eGFR If Africn Am 82 mL/min/1.73 (Normal) eGFR If NonAfricn Am 71 mL/min/1.73 (Normal) Creatinine, Serum 0.86 mg/dL (Normal) Range: 0.57-1.00 BUN 21 mg/dL (Normal) Range: 8-27 Glucose, Serum 93 mg/dL (Normal) Range: 65-99 :24 LIPID PANEL ([id number]) Comments: PATIENT WAS FASTINGPERFORMED BY: [employer] [id number] [facility] [id number]; apt. 07-[address]-15 LDL/HDL Ratio 3.1 {ratio_units} (Normal) Range: 0.0-3.2 Comments: LDL/HDL Ratio Men Women 1/2 Avg.Risk 1.0 1.5 Av g.Risk 3.6 3.2 2X Avg.Risk 6.2 5.0 3X Avg.Risk 8.0 6.1 LDL Cholesterol Calc 138 mg/dL (Abnormal) Range: 0-99 VLDL Cholesterol Jorge Luis 31 mg/dL (Normal) Range: 5-40 HDL Cholesterol 45 mg/dL (Normal) Comments: According to ATP-III Guidelines, HDL-C >59 mg/dL is considered anegative risk factor for CHD. Triglycerides 154 mg/dL (Abnormal) Range: 0-149 Cholesterol, Total 214 mg/dL (Abnormal) Range: 100-199 :24 CBC with auto diff Comments: PATIENT WAS FASTINGPERFORMED BY: [employer]6370 [facility] [id number] Information: [id number] ([id number]) Immature Grans (Abs) 0.0 {x10E3/uL} (Normal) Range: 0.0-0.1 Immature Granulocytes 0 % (Normal) Baso (Absolute) 0.0 {x10E3/uL} (Normal) Range: 0.0-0.2 Eos (Absolute) 0.2 {x10E3/uL} (Normal) Range: 0.0-0.4 Monocytes(Absolute) 0.5 {x10E3/uL} (Normal) Range: 0.1-0.9 Lymphs (Absolute) 1.6 {x10E3/uL} (Normal) Range: 0.7-3.1 Neutrophils (Absolute) 3.0 {x10E3/uL} (Normal) Range: 1.4-7.0 Basos 1 % (Normal) Eos 3 % (Normal) Monocytes 9 % (Normal) Lymphs 30 % (Normal) Neutrophils 57 % (Normal) Platelets 211 {x10E3/uL} (Normal) Range: 150-379 RDW 14.3 % (Normal) Range: 12.3-15.4 MCHC 33.9 g/dL (Normal) Range: 31.5-35.7 MCH 29.4 pg (Normal) Range: 26.6-33.0 MCV 87 fL (Normal) Range: 79-97 Hematocrit 39.2 % (Normal) Range: 34.0-46.6 Hemoglobin 13.3 g/dL (Normal) Range: 11.1-15.9 RBC 4.52 {x10E6/uL} (Normal) Range: 3.77-5.28 WBC 5.3 {x10E3/uL} (Normal) Range: 3.4-10.8 [id number] Urinalysis, Complete Comments: Order Date: 12/06/14How was Urine Obtained? CLEAN CATCHTest performed at:[facility] [id number] [place] [address] MUCUS, URINE 0 SEEN {/hpf} (Normal) BACTERIA 0 SEEN {/hpf} (Normal) SQUAM EPI 0 SEEN {/hpf} (Normal) Range: 5-10 RBC-UA 0-5 SEEN {/hpf} (Normal) Range: 0-5 WBC 0 SEEN {/hpf} (Normal) Range: 0-5 LEUK ESTERASE Negative /ul (Normal) OCCULT BLOOD-UR 50 /ul (Abnormal) NITRITE UR Negative (Normal) UROBILI Normal mg/dL (Normal) PROT DIPSTX Negative mg/dL (Normal) pH UR 6.0 (Normal) Range: 5.0 - 8.0 SP.GR. DIPSTX 1.015 (Normal) Range: 1.002-1.030 KETONE UR Negative mg/dL (Normal) BILIRUBIN URINE Negative mg/dL (Normal) GLUCOSE, UR Normal mg/dL (Normal) CLARITY Clear (Normal) COLOR Straw (Normal) :49 Rapid Strep Test, Office ([id number]) Rapid Strep Test, Office Positive (Normal) :03 METABOLIC PANEL, COMPREHENSIVE Comments: PATIENT WAS FASTINGPERFORMED BY: [facility] Irosvc3607 [facility] [id number] ([id number]) ALT (SGPT) 22 [iU]/L (Normal) Range: 0-40 AST (SGOT) 26 [iU]/L (Normal) Range: 0-40 Alkaline Phosphatase, S 85 [iU]/L (Normal) Range: 25-165 A/G Ratio 1.8 (Normal) Range: 1.1-2.5 Bilirubin, Total 0.4 mg/dL (Normal) Range: 0.0-1.2 Globulin, Total 2.6 g/dL (Normal) Range: 1.5-4.5 Albumin, Serum 4.7 g/dL (Normal) Range: 3.6-4.8 Calcium, Serum 9.7 mg/dL (Normal) Range: 8.6-10.2 Carbon Dioxide, Total 26 mmol/L (Normal) Range: 20-32 Protein, Total, Serum 7.3 g/dL (Normal) Range: 6.0-8.5 Chloride, Serum 101 mmol/L (Normal) Range: 97-108 Potassium, Serum 3.7 mmol/L (Normal) Range: 3.5-5.2 BUN/Creatinine Ratio 21 (Normal) Range: 8-27 eGFR AfricanAmerican >59 mL/min/1.73 Comments: Note: Persistent reduction for 3 months or more in an eGFR<60 mL/min/1.73 m2 defines CKD. Patients with eGFR values>/=60 mL/min/1.73 m2 may also have CKD if evidence of persistentproteinuria is (Normal) present. Additional information may be found [email or web address]. Sodium, Serum 142 mmol/L (Normal) Range: 135-145 eGFR >59 mL/min/1.73 (Normal) Creatinine, Serum 0.77 mg/dL (Normal) Range: 0.57-1.00 BUN 16 mg/dL (Normal) Range: 5-26 Glucose, Serum 91 mg/dL (Normal) Range: 65-99 :03 CBC WITH MANUAL DIFF Comments: PATIENT WAS FASTINGPERFORMED BY: [facility] [id number] Information: [id number] ([id number]) Baso (Absolute) 0.0 {x10E3/uL} (Normal) Range: 0.0-0.2 Immature Grans (Abs) 0.0 {x10E3/uL} (Normal) Range: 0.0-0.1 Immature Granulocytes 0 % (Normal) Range: 0-1 Eos (Absolute) 0.4 {x10E3/uL} (Normal) Range: 0.0-0.4 Lymphs (Absolute) 1.7 {x10E3/uL} (Normal) Range: 0.7-4.5 Monocytes(Absolute) 0.4 {x10E3/uL} (Normal) Range: 0.1-1.0 Neutrophils (Absolute) 2.5 {x10E3/uL} (Normal) Range: 1.8-7.8 Basos 1 % (Normal) Range: 0-3 Eos 7 % (Normal) Range: 0-7 Lymphs 35 % (Normal) Range: 14-46 Monocytes 7 % (Normal) Range: 4-13 Neutrophils 50 % (Normal) Range: 40-74 MCHC 32.7 g/dL (Normal) Range: 32.0-36.0 Platelets 236 {x10E3/uL} (Normal) Range: 140-415 RDW 13.3 % (Normal) Range: 11.7-15.0 MCH 28.7 pg (Normal) Range: 27.0-34.0 MCV 88 fL (Normal) Range: 80-98 Hematocrit 39.5 % (Normal) Range: 34.0-44.0 Hemoglobin 12.9 g/dL (Normal) Range: 11.5-15.0 RBC 4.49 {x10E6/uL} (Normal) Range: 3.80-5.10 WBC 5.0 {x10E3/uL} (Normal) Range: 4.0-10.5 :03 TSH ([id number]) Comments: PATIENT WAS FASTINGPERFORMED BY: [facility] [id number] TSH 1.390 {uIU/mL} (Normal) Range: 0.450-4.500 :03 LIPID PANEL ([id number]) Comments: PATIENT WAS FASTINGPERFORMED BY: [facility] [address]ex[address] [place] [id number] LDL/HDL Ratio 4.0 {ratio_units} (Abnormal) Range: 0.0-3.2 LDL Cholesterol Calc 171 mg/dL (Abnormal) Range: 0-99 VLDL Cholesterol Jorge Luis 50 mg/dL (Abnormal) Range: 5-40 HDL Cholesterol 43 mg/dL (Normal) Comments: According to ATP-III Guidelines, HDL-C >59 mg/dL is considered anegative risk factor for CHD. Triglycerides 248 mg/dL (Abnormal) Range: 0-149 Cholesterol, Total 264 mg/dL (Abnormal) Range: 100-199 :12 LQD PAP [id number] ADEQ Comment (Normal) Comments: Satisfactory for evaluation. Endocervical component may not bedistinguished in cases of atrophy. COMM . (Normal) DIAGN Comment (Normal) Comments: NEGATIVE FOR INTRAEPITHELIAL LESION AND MALIGNANCY.CELLULAR CHANGES ASSOCIATED WITH ATROPHY ARE PRESENT. HPV RFLX Comment (Normal) Comments: The HPV DNA reflex criteria were not met with this specimenresult therefore, no HPV testing was performed. .Performed At: [address] [id number] PAPSMR Comment (Normal) Comments: The Pap smear is a screening test designed to aid in thedetection of premalignant and malignant conditions of theuterine cervix. It is not a diagnostic procedure andshould not be used as the sole means of detecting cervicalcancer. Both false-positive and false-negative reports dooccur. . PERFORM Comment (Normal) Comments: Vandana Aaron, Laundry Marker Supervisor (ASCP) [id number] BILAT KETAN DIGITAL & CAD Radiology Report See Note (Normal) Comments: Exam Number: [id number] MAMMOGRAM, UNILATERAL LEFT DIAGNOSTIC DIGITAL AND CAD Full field digital images were obtained in mediolateral oblique andcraniocaudal projections. A left true lateral view was al so obtained.CAD images were reviewed. The current study is compared to the examinations of December 09, 2007, December 20, 2007, June 09, 2008. There is a moderate to severe extent of fibroglandular parench ymapresent. There are scattered areas of asymmetric parenchymal density.There is, however, no dominant mass. There is no skin thickening orretraction, architectural distortion, or cluster of suspicious microcalcifications. If there is no suspicious palpable abnormality,followup mammogram in 1 year is recommended. IMPRESSIONThere is no radiographic evidence of malignancy identified. FINAL ASSESSMENTBen ign findings. BIRADS Category 2. A letter regarding these results has been sent to the patient. This interpretation was rendered by a radiologist certified under theMammography Quality Standards Act o f 1992 (MQSA). The mammograms werealso examined with computer-aided detection software ([employer] Reported By: LIZET CONRAD M.D. :38 GLU 80 mg/dL (Normal) Range: 70-110 :38 LIPID CHOL 221 mg/dL (Abnormal) Comments: <200 mg/dL Desirable 200-240 mg/dL Borderline >240 mg/dL High Risk HDL 33 mg/dL (Abnormal) Comments: Reference Range HDL <40 mg/dL Low HDL Cholesterol HDL >or= 60 mg/dL High HDL Cholesterol LDL 139 mg/dL (Abnormal) Range: 0-130 TRIG 247 mg/dL (Abnormal) Comments: Serum Triglycerides Reference Interval Normal <150 mg/dL Borderline high 150 - 199 mg/dL High 200 - 499 mg/dL Very High > or = 500 mg/dL VLDL 49 mg/dL (Abnormal) Range: 5-40 [id number] BILAT DIA DIGITAL & CAD Radiology Report See Note (Normal) Comments: Exam Number: [id number] MAMMOGRAM, BILATERAL DIAGNOSTIC DIGITAL AND CAD HISTORYAbnormal screening mammogram. Full field digital images were obtained in right roll craniocaudalviews and in left true later al, roll craniocaudal and spotmediolateral oblique and craniocaudal views. CAD images werereviewed. There is moderately dense fibroglandular parenchyma present. The areaof asymmetry seen in the right breast in the craniocaudal projectionof December 09, 2007, is not a persistent finding. On the right, thereare multiple small densities scattered in the upper-outer quadrant ofthe breast. These are somewh at variable in location and appearanceand most likely represent areas of superimposition of parenchymalstructures. Because there are small areas of density which are seenpersistently on the left, if th ere is no suspicious palpableabnormality, a left unilateral 6-month followup mammogram isrecommended. IMPRESSIONThere are scattered small densities on the left predominantly in theupper-outer quadrant o f the breast. These are most likely benign. Ifthere is no suspicious palpable abnormality, left 6-month followupmammogram is recommended. FINAL ASSESSMENTProbably benign. BIRADS Category 3. A letter regarding these results has been sent to the patient. This interpretation was rendered by a radiologist certified under theMammography Quality Standards Act of 1992 (MQSA). The mammograms werealso exa mined with computer-aided detection software ([employer] Reported By: LIZET CONRAD M.D. [id number] BILAT SCRN DIGITAL & CAD Radiology Report See Note (Normal) Comments: Exam Number: [id number] MAMMOGRAM, BILATERAL SCREENING DIGITAL AND CAD HISTORYRoutine screening. Full field digital images were obtained in mediolateral oblique andcraniocaudal projections. CAD images w ere reviewed. No previous study is available for comparison. There is moderately dense fibroglandular parenchyma present. There isno skin thickening or retraction, architectural distortion, or clustero f suspicious microcalcifications. On the left, there is an area ofasymmetric parenchymal density in the upper-outer quadrant of thebreast for which true lateral and spot mediolateral oblique andcranioca udal views are recommended. On the right, there is an area ofasymmetric parenchymal density in the inner half of the breast forwhich roll craniocaudal projections are recommended. Note is made the sanam ent reported having had a previous mammogramperformed in [place], [place]. That was performed 17 years ago andis no longer available. IMPRESSIONThere are areas of asymmetric parenchymal density presen t bilaterally.Additional views are recommended. FINAL ASSESSMENTNeed additional imaging evaluation. BIRADS Category 0. A letter regarding these results has been sent to the patient. This interpretatio n was rendered by a radiologist certified under theMammography Quality Standards Act of 1992 (MQSA). The mammograms werealso examined with computer-aided detection software ([employer] Reported By: LIZET CONRAD M.D. 36-[id number]:08 ABDOMEN W/WO CONTRAST Radiology Report See Note (Normal) Comments: Exam Number: [id number] CT ABDOMEN WITHOUT AND WITH INTRAVENOUS CONTRAST CLINICAL STATEMENTLiver and renal lesions, probable cysts. The previous October 12, 2006 study was reviewed for comparison. Oralcon trast was given. Images were obtained prior to intravenousenhancement, during late arterial enhancement, and during late portalphase enhancement along with delayed images during renal excretion. There is redemonstration of hypodensity in the lateral left hepaticlobe showing discontinuous peripheral arterial phase enhancement thatincreases on delayed images compatible with a hemangioma. A smallersite of low density in the left hepatic lobe on the order of 7 mm.does not change consistent with a cyst. There appear to be 2adjacent small cysts in the medial right kidney. Two smaller lowdensity sites are seen at the upper pole of the left kidney also mostlikely representing cysts although not large enough for confidentdensity determination. There is an 8 mm. cyst at the posterior lowermargin of t he spleen. Adrenal glands, pancreas and biliary tract areunremarkable. There is no hydronephrosis, ascites or free air. Bowelloops are not dilated. IMPRESSION1) Multiple low density sites most con sistent with cysts in thekidneys on both sides, spleen, and left hepatic lobe.2) Peripherally enhancing 14 mm. lesion in the lateral left hepaticlobe compatible with hemangioma.3) Resolution of hydron ephrosis and perinephric stranding around theright kidney since the October 12, 2006 scan. Reported By: HEATH FREED M.D. [id number]:45 BMP Comments: COMMENTS: BED 6 DR White*: NOT APPLICABLE BUN 23 mg/dL (Abnormal) Range: 7-18 BUN/CRE 23.0 {RATIO} (Abnormal) Range: 10-20 CA 9.0 mg/dL (Normal) Range: 8.5-10.1 CL 105 mmol/L (Normal) Range: 98-107 CO2 26.3 mmol/L (Normal) Range: 22.0-29.0 CREAT,SERUM 1.0 mg/dL (Normal) Range: 0.6-1.0 GAP 12 (Normal) Range: 5-15 GLU 118 mg/dL (Abnormal) Range: 70-110 Comments: Fasting Glucose result from 110 to <126 mg/dL suggests IMPAIRED HOMEOSTASIS per A.D.A. criteria. K 3.5 mmol/L (Normal) Range: 3.5-5.1 NA 143 mmol/L (Normal) Range: 136-145 [id number]:30 COMPLETE UA Comments: COMMENTS: BED 6 DR Statonecautions*: NOT APPLICABLE BACTERIA 0 SEEN {/hpf} (Normal) BILIRUBIN URINE SeeNote (Normal) Comments: Result: NEGATIVE CLARITY SeeNote (Normal) Comments: Result: SL CLOUDY COLOR SeeNote (Normal) Comments: Result: DARK YELLOW GLUCOSE, UR SeeNote (Normal) Comments: Result: NEGATIVE KETONE UR SeeNote mg/dL (Normal) Comments: Result: NEGATIVE LEUK ESTERASE SeeNote (Normal) Comments: Result: NEGATIVE MUCUS, URINE 0 SEEN {/hpf} (Normal) NITRITE UR SeeNote (Normal) Comments: Result: NEGATIVE OCCULT BLOOD-UR 3+ (Abnormal) pH UR 5.5 (Normal) Range: 5.0-8.0 PROT CONF. 20 mg/dL (Abnormal) Range: 0-5 PROT DIPSTX 1+ (Abnormal) RBC-UA SeeNote {/hpf} (Normal) Range: 0-5 Comments: Result: > 100 SEEN SP.GR. DIPSTX >=1.030 (Normal) Range: 1.002-1.030 SQUAM EPI SeeNote {/hpf} (Normal) Range: 5-10 Comments: Result: 0-5 SEEN UROBILI 0.2 EU/dl (Normal) Range: 0.2 - 1.0 WBC SeeNote {/hpf} (Normal) Range: 0-5 Comments: Result: 0-5 SEEN Plan of Care Name Dates Details Instructions Sciatica, left side : Diet, Exercise, and Wt loss Indication: Sciatica, left side Left hip pain : Test Due Indication: Left hip pain Sciatica, left side : Test Due Indication: Sciatica, left side Current nonsmoker (Renamed from Current non-smoker) : Eprescribed prescriptions (G8553) Indication: Current nonsmoker (Renamed from Current non-smoker) Body mass index (BMI) of 19.0-19.9 in adult : Follow up - Make appt after diagnostic tests Indication: Body mass index (BMI) of 19.0-19.9 in adult Current nonsmoker (Renamed from Current non-smoker) : Eprescribed prescriptions (G8553) Indication: Current nonsmoker (Renamed from Current non-smoker) Back pain, lumbosacral : Reviewed Financial Services Officer Letter Indication: Back pain, lumbosacral Back pain, lumbosacral : Reviewed Diagnostic Tests Indication: Back pain, lumbosacral Back pain, lumbosacral : Follow up in 1 week Indication: Back pain, lumbosacral Sciatica, left side : Sciatica: back injury Indication: Sciatica, left side Current nonsmoker (Renamed from Current non-smoker) : Eprescribed prescriptions (G8553) Indication: Current nonsmoker (Renamed from Current non-smoker) Hypertension : High Blood Pressure (Essential Hypertension) *: essential hypertension Indication: Hypertension Pharyngitis, acute : Sore throat: diagnosis and treatment Indication: Pharyngitis, acute Dysthymic : Continue Current Prescription(s) Indication: Dysthymic Elevated blood-pressure reading without diagnosis of hypertension : FOLLOW UP IN 1 MONTH Indication: Elevated blood-pressure reading without diagnosis of hypertension Elevated blood-pressure reading without diagnosis of hypertension : BP MONITORING - SELF Indication: Elevated blood-pressure reading without diagnosis of hypertension Bronchitis : *URI Treatment Indication: Bronchitis Bronchitis : Antibiotic Usage Education - Female Indication: Bronchitis Bronchitis : URI Symptoms Indication: Bronchitis Well woman exam : Colon Cancer Screening Indication: Well woman exam Well woman exam : Pap/Pelvic/Bimanual/Rectal/Breast Exam was done. Indication: Well woman exam Well woman exam : Self Breast Exam Education Indication: Well woman exam Well woman exam : Well Female Maintenance (KF) Indication: Well woman exam Planned Observations Thin prep Pap ([id number])Indication: Well woman exam On: [id number]-Tuy-[id number] Request TSH ([id number])Indication: Hyperlipidemia On: 16-Tpv-[id number]:33 Request Metabolic Panel, Comprehensive ([id number])Indication: Hyperlipidemia On: [id number]-Lgd-971743:29 Request Lipid Panel ([id number])Indication: Hyperlipidemia On: 21-Tpn-975938:29 Request Lipid Panel ([id number])Indication: WWV On: :27 Request Glucose ([id number])Indication: WWV On: :27 Request Planned Procedures MRI PELVIS AND HIP LEFT WO CONTRAST On: 11-May-2018 Intent ([id number])By: Omaira Villeda CNP, CNP Lynda Toradol Injection, 30 mg ([id number])By: On: 11-May-2018 Intent Ronal GONZALEZ Lynda Ronal CARLOS O[facility] Beth MRI LUMBAR SPINE W/ CONTRAST On: 11-May-2018 Intent ([id number])By: Ronal GONZALEZ LyndaIgnacia Villeda CNP Lynda MRI PELVIS AND HIP LEFT WO THEN W On: 11-May-2018 Intent CONTRAST ([id number])By: Ronal GONZALEZ LyndaIgnacia Villeda CNP O[facility] Radiology - Lumbar SpineBy: Hilario On: 03-May-2018 Intent Terri Radiology - Hip - LeftBy: Hilario, On: 03-May-2018 Intent Terri PHYSICAL THERAPY ([id number])By: Hilario On: 03-May-2018 Intent Terri MAMMOGRAM, SCREENING, BOTH BREAST On: 07-Jun-2015 Intent ([id number])By: Tammie Durham MD EKG ([id number])By: Anu Vega DO On: 20-May-2010 Intent Comments: nsr no acute changes Pulse Oximetry ([id number])By: Marva On: 16-Mar-2009 Intent Tammie OLIVARES Aerosol Treatment ([id number])By: Marva On: 16-Mar-2009 Intent Tammie OLIVARES Pulse Oximetry ([id number])By: Rd On: 16-Mar-2009 Intent MARIE MAMMOGRAM, SCREENING, BOTH BREASTS On: 02-Dec-2007 Intent ([id number])By: Tammie Durham MD CT - AbdomenBy: Tamime Durham MD On: 13-Oct-2006 Intent Comments: attn liver and kidney cyst follow up in three months Planned Medications INJECTION, KETOROLAC TROMETHAMINE, PER 15 MG Ordered: 11-May-2018 Pending Ronal GONZALEZ LyndaIgnacia Villeda CNP Lynda Instructions Name Dates Details Current nonsmoker (Renamed from Current non-smoker) : How to access health information online Indication: Current nonsmoker (Renamed from Current non-smoker) Current nonsmoker (Renamed from Current non-smoker) : How to access health information online - Detail Indication: Current nonsmoker (Renamed from Current non-smoker) Current nonsmoker (Renamed from Current non-smoker) : Patient Instructions Indication: Current nonsmoker (Renamed from Current non-smoker) Current nonsmoker (Renamed from Current non-smoker) : How to access health information online Indication: Current nonsmoker (Renamed from Current non-smoker) Current nonsmoker (Renamed from Current non-smoker) : How to access health information online - Detail Indication: Current nonsmoker (Renamed from Current non-smoker) Current nonsmoker (Renamed from Current non-smoker) : Patient Instructions Indication: Current nonsmoker (Renamed from Current non-smoker) Current nonsmoker (Renamed from Current non-smoker) : How to access health information online Indication: Current nonsmoker (Renamed from Current non-smoker) Current nonsmoker (Renamed from Current non-smoker) : How to access health information online - Detail Indication: Current nonsmoker (Renamed from Current non-smoker) Current nonsmoker (Renamed from Current non-smoker) : Patient Instructions Indication: Current nonsmoker (Renamed from Current non-smoker) Anxiety : How to access health information online Indication: Anxiety Anxiety : How to access health information online - Detail Indication: Anxiety Anxiety : Patient Instructions Indication: Anxiety Hypertension : How to access health information online Indication: Hypertension Hypertension : How to access health information online - Detail Indication: Hypertension Hypertension : Patient Instructions Indication: Hypertension Encounters Office Visit On: 18-May-2018 10:29 Encounter Reason: Hip Strain/Sprain - Note for Hip strain/sprain: Left inguinal and hip pain. Has had 2 ER visits and Ov x2 with hip inguinal pain, sciatica like pain and has had PT and on anitimflam( ibuprofen, and ex End: 18-May-2018 11:34 cedrin and percocet and gabapentin tid, Still with exceptiona pain, presented today not in wheelchair, able to walk in with cane and assist. Has not made pain management referral yet., [ADDITIONAL REASON] Leg Pain - Onset was 2 week(s) ago. Associated symptoms include hip pain and thigh pain. Note for Leg pain: left groin and left leg painHas been taking oxycodone and excedrin and aleve and gabapentin was taking q8 hrs. and only prn.Has needle and pin feeling in left inguinal and top of thigh. Encounter Diagnosis: Current nonsmoker (Renamed from Current non-smoker), Body mass index (BMI) of 19.0-19.9 in adult, Sciatica, left side, Left hip pain [facility] Annotation/Addendum On: 12-May-2018 16:14 Encounter Diagnosis: Left hip pain End: 12-May-2018 16:22 [facility] Phone Encounter On: 11-May-2018 10:41 Encounter Diagnosis: Left hip pain End: 11-May-2018 10:43 [facility] Office Visit On: 11-May-2018 7:57 Encounter Reason: Leg Pain - Onset was 2 week(s) ago. Associated symptoms include hip pain and thigh pain. Note for Leg pain: left groin and left leg painHas been taking oxycodone and excedrin was taking q6 hrs, End: 11-May-2018 8:57 [ADDITIONAL REASON] Hip Strain/Sprain - Note for Hip strain/sprain: Left inguinal and hip pain. Has had 2 ER visits and Ov x2 with hip inguinal pain, sciatica like pain and has had PT and on anitimfl am and percocet. Still with exceptiona pain, presents in Wheelchair Encounter Diagnosis: Current nonsmoker (Renamed from Current non-smoker), Body mass index (BMI) of 19.0-19.9 in adult, Sciatica, left side, Left hip pain [facility] Office Visit On: 03-May-2018 9:31 Encounter Reason: Follow up ER - Reason for hospitalization note: (groin pain -- went to ER twice -- once thursday and again thursday). Note for Follow up ER: Symptoms started about 2 months. Has been lifting mother over t End: 03-May-2018 10:55 he last 2 months-severe pain started about 1 week ago with left buttock pain, Numbness- painful down left leg to knee-left groin painful-can't push on it, painful to walk. Has been to ER twice in the [place] [facility] couple of days for pain. CT was done-no infection. No loss of bladder or bowel function, no tingling in leg, rednes or swelling. 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 Percocet given in ER-not working.Has been doing heat and ice therapy.Encounter Diagnosis: Current nonsmoker (Renamed from Current non- smoker), Body mass index (BMI) less than 19, Left hip pain, Sciatica, left side, Back pain, lumbosacral, Elevated blood pressure reading [facility] Office Visit On: 13-Jul-2015 9:30 Encounter Reason: Follow up acute care visit - The patient feeling better since last seen and improving. Patient has been compliant with instructions. Current medication use: no side effects and considered effective by p End: 13-Jul-2015 10:37 atient. Patient sleeps 7 hours per night. Impact of disease: emotional impact-moderate. Nutrition: balanced diet and supplemental vitamins. The medical issues the patient is following up for include hig h blood pressure and other (anxiety ). Note for Follow up acute care visit: patient b/p much better than was at last ov, took self off toprol and b/p been stable at home, would like to try and stay off for now and monitor Encounter Diagnosis: Anxiety, Current nonsmoker (Renamed from Current non-smoker), Hypertension, Hyperlipidemia [facility] Office Visit On: 07-Jun-2015 8:04 Encounter Reason: Hypertension - Symptoms are exacerbated by stress. The patient is not currently being treated for this problem. First diagnosis of hypertension was 3 year(s) ago. Previous presentation included an eleva End: 07-Jun-2015 8:53 jhonatan blood pressure during the examination and an elevated blood pressure from an outside reading (per patient been getting high readings at work ).Encounter Diagnosis: Hypertension, Current nonsmoker (Renamed from Current non-smoker), Anxiety, Encounter for screening mammogram for breast cancer (Renamed from Visit for screening mammogram) [facility] Office Visit On: 22-Jan-2012 8:48 Encounter Reason: Sinusitis/ - The duration of the symptoms are 5 days The course has been gradually worsening. The sinusitis/ has no relieving factors. Associated features include The symptoms have been associated with End: 22-Jan-2012 9:13 ear pain, nasal discharge/stuffy nose, sinus pain and sore throat.Encounter Diagnosis: ACUTE PHARYNGITIS (462.) [facility] Office Visit On: 24-Jun-2010 16:02 Encounter Reason: Follow up Hypertension - The symptoms have been associated with anxiety and family history of hypertension, while the symptoms have not been associated with excessive caffeine intake, hypertension w/ pr End: 24-Jun-2010 18:02 ior or obesity. blood pressure range : (130's/80's).Encounter Diagnosis: Elevated Blood Pressure without diagnosis of Hypertension (796.2), Depression/Anxiety (300.4) [facility] Office Visit On: 20-May-2010 14:29 Encounter Reason: Follow up for chronic medical issues - The patient feels well with minor complaints, has good energy level and is sleeping well. Patient has been non-compliant with instructions. Current medication use: End: 20-May-2010 15:49 no side effects and non-compliant with dosing regimen. Patient sleeps 7 hours per night. Nutrition: inappropriate diet and no supplemental vitamins & iron. The medical issues the patient is followi ng up for include All identified problems below and depression.Encounter Diagnosis: Depression/Anxiety (300.4), Mixed hyperlipidemia (272.2), Elevated Blood Pressure without diagnosis of Hypertension (796.2) [facility] Office Visit On: 16-Mar-2009 7:30 Encounter Reason: Well Women Exam - The patient does not feel well and has decreased energy level. Pap smear: date of last pap: (11-27). Contraceptive history: The patient is not using any method of contraception at this End: 16-Mar-2009 8:02 time. Patient exercises 3 - 4 times per week. The patient's libido is normal. The patient reports that she performs monthly self breast exam. Note for Well Women Exam: postmenopausal Encounter Diagnosis: SYMPTOMS INVOLVING RESPIRATORY SYSTEM AND OTHER CHEST SYMPTOMS; COUGH (786.2), Well Woman Exam (V72.31) (Pap,Mammo,Routine Female) (Renamed from Well Woman V72.31 (p,m)), BRONCHITIS, NOT SPECIFIED ACUTE OR CHRONIC (490.) [facility] Office Visit On: 02-Jan-2009 15:19 Encounter Reason: Follow up for chronic medical issues - The patient feels well with no complaints ,has good energy level and is sleeping well. Patient has been compliant with instructions. Current medication use: no pearl End: 02-Jan-2009 15:36 e effects ,compliant with dosing regimen and considered effective by patient. Patient sleeps 7 hours per night. Impact of disease: emotional impact-mild. Nutrition: balanced diet. The medical issues the patient is following up for include depression (anxiety ). 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 Patient has been compliant with instructions. Current medication use: no End: 02-Dec-2007 9:31 side effects ,compliant with dosing regimen and considered effective by patient. Patient sleeps 7 hours per night. Impact of disease: emotional impact-mild. Nutrition: balanced diet and supplemental vit amins. The medical issues the patient is following up for include depression. Encounter Diagnosis: Depression/Anxiety (300.4), [facility] Office Visit On: 13-Oct-2006 14:13 Encounter Reason: Follow up ER - Reason for hospitalization kidney stones. Patient has been compliant with instructions. Current medication use: no side effects ,compliant with dosing regimen and considered effective by End: 13-Oct-2006 14:39 patient. The patient feels well with minor complaints ,has good energy level and is sleeping well. Patient sleeps 8 hours per night. Impact of disease: emotional impact-mild. Nutrition: balanced diet. 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
--- OUTSIDE RECORDS SUMMARY | 2018-07-14 21:32 | XMS RPT_ITS | Continuity of Care Document ---
:1950 Author Organization [facility] Address [address] [facility] [address] [place] [address] Phone Care Team Providers Name Role Phone [...] days Quantity: 90 {Capsule} Refills: 0 Ordered:11-May-2018 Ronal GONZALEZ Omaira Alicia GONZALEZ Lynda Start : 11-May-2018 Active Comments:Dx Code [...] days Quantity: 1 {Package} Refills: 0 Ordered:18-May-2018 Ronal GONZALEZ Omaira Alicia GONZALEZ Lynda Start : 18-May-2018 Active Comments:with food Meloxicam 7.5 MG Oral Tablet 1 (one) Tablet Tablet PO QD for 30 days Quantity: 30 {Tablet} Refills: 0 Ordered:03-May-2018 Alexandra Julian Start : 03-May-2018 Active Comments:Take with food AMOXICILLIN, 875MG (Oral Tablet) 1 Tablet bid [...] Start : 10-Aug-2015 End : 03-May-2018 Inactive Oxycodone-Acetaminophen 5-325 MG Oral Tablet 1 (one) Tablet Tablet q8hrs prn for 7 days Quantity: 21 {Tablet} Refills: 0 Ordered:12-May-2018 Alexandra Julian Start : 12-May-2018 End : 19-May-2018 Inactive Comments:Oarrs run M25.552 Acute left hip painTwenty one PREDNISONE, 20MG (Oral Tablet) Tablet daily for [...] (Z00.00, V70.0) Status: Inactive as of 13-Jul-2015 WWV Comments: pap follow up Status: Inactive as of 27-Dec-2008 WWV V72.31 Status: Inactive as of 07-Jun-2015 Procedures Procedure Dates Details 1982 Completed Date Value Details 19-May-2018 Pelvis (Routine) Result: Comments: See Note; NOTES: [facility] Imaging Services [address] [place] [address] Pelvis (Routine) MR#: [id number] Acct: [id number] Name: IRISH CISNEROS Rep #: [id number] : 1950 F 68 From: Wilmar Soliman MD PCP: Anu Vega DO Status: REG CLI Study: Pelvis (Routine) Date of Exam: 05/19/18 Exam# [id number] Ordering Dr: Omaira Villeda VERIFICATION ENGINEER-Ajit STUDY: MRI BILATERAL HIPS T PELVIS REASON FOR EXAM: Left hip/leg pain for 4 weeks. TECHNIQUE: Standardized fat and water weighted pulse sequences were obtained in all 3 orthogonal planes. COMPARISON: Radiographs 05/03/2018. _ FINDINGS: RIGHT HIP Normal hip joint without articular joint space narrowing. There is a small subchondral cyst in the anterior right acetabulum. Normal right labrum . Normal right femoral head. Normal right femoral neck and intratrochanteric region. Normal right gluteus minimus, medius and iliopsoas tendons and distal insertions. Normal right superior and inferio r pubic rami. Normal right pubic symphysis. Normal right ischial tuberosity. Normal origin of the right hamstring tendons. Normal visualized right iliac wing, sacroiliac joint, and sacral ala. LEFT HIP Normal left hip joint without articular joint space narrowing. Normal left acetabulum. Normal left labrum. Normal left femoral head. Normal left femoral neck and intratrochanteric region. Normal left gluteus minimus, medius and iliopsoas tendons and distal insertions. Normal left superior and inferior pubic rami. Normal left pubic symphysis. Normal left ischial tuberosity. Normal origin of the left hamstring tendons. Normal visualized left iliac wing, sacroiliac joint, and sacral ala. There is a low-grade strain of the left obturator externus muscle (T2 axial images 29, 30). There is also a low- grade strain of the distal left lumbar paraspinous musculature (inversion recovery coronal image 6; T2 axial images 6, 7). MRI/Pelvis (Routine) I MPRESSION: Low-grade strains of the left obturator externus muscle and distal left lumbar paraspinous musculature. Electronically Signed: Wilmar Soliman MD at 15:06 EST Tel , Service support , CC: Omaira Villeda NP; Anu Vega DO Truss Maker: Signed 19-May-2018 Spine Lumbar (Routine) Result: Comments: See Note; NOTES: [facility] Imaging Services [address] [place] [id number] Spine Lumbar (Routine) MR#: [id number] Acct: [id number] Name: IRISH CISNEROS Rep #: [id number] : 1950 F 68 From: Haylie Hernandez PCP: Anu Vega DO Status: REG CLI Study: Spine Lumbar (Routine) Date of Exam: 05/19/18 Exam# [id number] Ordering Dr: Omaira Villeda VERIFICATION ENGINEER-C STUDY: MRI LUMBAR SPINE WITHOUT CONTRAST REASON FOR EXAM: Female, 68 years old. LBP Lower Back Pain MRI - Lumbar. TECHNIQUE: Standardized fat and water weighted pulse sequences were obtained in the sagittal and axial p lanes. COMPARISON: X-ray dated May 03, 2018 FINDINGS: T12-L1: Normal endplates. Normal disc height, hydration and morphology. Normal bilateral facet joints. N ormal central canal and bilateral lateral recesses. Normal bilateral intervertebral neural foramina. Normal lumbar lordosis. There is no substantial scoliosis. Normal conus medullaris that terminates a t the T12 L1-2: Normal endplates. Normal disc height, hydration and morphology. Normal bilateral facet joints. Normal central canal and bilateral lateral recesses. Normal bilateral intervertebral neura l foramina. L2-3: There is minimal disc space narrowing and endplate spondylosis. There is no significant disc herniation, central canal or foraminal stenosis. L3-4: There is mild disc space narrowing and endplate spondylosis. There is a mild disc bulge and facet arthropathy without significant central canal stenosis. There is a left foraminal protrusion with severe left foraminal stenosis. There is mild right foraminal stenosis. L4-5: There is moderate disc space narrowing and endplates spondylosis. There is extensive facet arthropathy with grade 1 anterolisthesis and mild disc bulge with mild c entral canal stenosis. There is mild bilateral foraminal stenosis. L5-S1: There is minimal disc space narrowing and endplates spondylosis. There is moderate facet arthropathy Normal visualized sacral ala. Normal visualized paraspinous soft tissue structures. MRI/Spine Lumbar (Routine) IMPRESSION: L3/L4: Disc protrusion with severe left forami nal stenosis. L4/L5: Severe facet arthropathy with grade 1 anterolisthesis. Electronically Signed: Haylie Hernandez MD at 11:52 EST Tel , Service support , Fax CC: Omaira Villeda NP; Anu Vega DO Truss Maker: Signed 05-May-2018 Inital Evaluation (1) - PT Result: Comments: See Note; NOTES: [facility] [address] [place] [address]. [address] [place] [phone] Fax REHABILITATION SERVICES INITIAL EVALUATION MR#: [id number] Acct: [id number] Name: ANNALISA CISNEROS Rep #: [id number] : 1950 68 From: Laura Anand PT, Cert. MDT Referring Dr.: ALIE Rich Status: REG RCR Insurance: [facility] PART A B ANTH Patient's Visit Information ANNALISA CISNEROS is a [...] to be FAXED BACK to us at [phone] for Medicare purposes. Please let m e know if there are questions or concerns regarding this plan of care. Physician Signature: Date: <Electronically signed by Laura Anand PT, Cert. MDT> 05/05/18 3598 CC: ALIE Rich; Anu Vega DO RAFFI Signed For Medicare only, by signing this I certify the plan of care. Physicians Signature Date 03-May-2018 HIP, UNI W/ Pelvis 2-3 Views Result: Comments: See Note; NOTES: [facility] Imaging Services [address] [place] [address] HIP, UNI W/ Pelvis 2-3 Views MR#: [id number] Acct: [id number] Name: ANNALISA CISNEROS Rep #: : 1950 F 68 From: Troy Mcdonald DO PCP: Anu Vega DO Status: REG CLI Study: HIP, UNI W/ Pelvis 2-3 Views Date of Exam: 05/03/18 Exam# [id number] Ordering Dr: Terri Rich VERIFICATION ENGINEER-C UDY: X-RAY - PELVIS AND LEFT HIP [...] Troy Mcdonald DO at 17:10 EST Tel [phone], Service support , Fax CC: ALIE Rich; Anu Vega DO Truss Maker: Signed 03-May-2018 L/S Spine Min 4 Views Result: Comments: See Note; NOTES: [facility] Imaging Services [address] [place] [address] L/S Spine Min 4 Views MR#: [id number] Acct: [id number] Name: ANNALISA CISNEROS Rep #: [id number] : 1950 F 68 From: Troy Mcdonald DO PCP: Anu Vega DO Status: REG CLI Study: L/S Spine Min 4 Views Date of Exam: 05/03/18 Exam# [id number] Ordering Dr: Terri Rich STUDY: X-RAY - L UMBAR SPINE REASON FOR EXAM: Female, 68 years old. Lower back pain after lifting. TECHNIQUE: 5 view(s) of the lumbar spine were obtained. COMPARISON: CT of the abdomen and pelvis, December 06, 2014 and N 2017. FINDINGS: Normal lumbar lordosis. There is no [...] Troy Mcdonald DO at 17:12 EST Tel [phone], Service support , CC: ALIE Rich; Anu Vega DO Truss Maker: Signed 02-May-2018 Discharge Instruction Result: Comments: See Note; NOTES: [facility] Medical Records Department [address] [place] [address] Discharge Instruction 05/02/181925 MR#: [id number] Acct: [id number] Name: Kathy CISNEROS Rep #: [id number] : 1950 68 From: Ayleen Storm MD PCP: Anu Vega DO Status: REG ER ED Disposition - Plan for ED Patient: Chief Complaint: Abd Pain Instructions: ED Strain Groin Prescriptions: Diazepam [Valium] 2 mg PO BID PRN PRN #10 tablet PRN Reason: Vertigo Referrals: Anu Vega, [Primary Care Provider] - What to do if you have Problems For any increased pain, s hortness of breath, bleeding, nausea or vomiting, chest pain, or any unexpected problems, contact your Primary Care Provider. Call [facility] ([phone]) or report to the closest Emergency Room . Call 911 if necessary. 05/02/181926 <Electronically signed by Ayleen Storm MD> Date Ayleen Storm MD Cosigner Signature (If Indicated): Date CC: Anu Vega DO 02-May-2018 Emergency Department Summary Result: Comments: See Note; NOTES: [facility] Medical Records Department [address] [place] [address] Emergency Department Summary 05/02/181738 MR#: [id number] Acct: [id number] Name: ANNALISA CISNEROS Rep #: [id number] : 1950 68 From: Ayleen Storm MD [...] groin strain This note was generated with [employer] dictation software. It may contain incorrect words, [...] your Primary Care Provider. Call [facility] ([phone]) or report to the closest Emergency Room. Call 911 if necessary. 1925 <Electronically signed by Ayleen Storm MD> Date Ayleen Storm MD Cosigner Signature (If Indicated): Date ____ CC: Anu Vega 07-Jun-2015 EKG (60656) Result: [MEASUREMENTS ANALYSIS] Date of Test: 06/07/2015 08:14:11; Heart Rate: 59; MA Interval: 164; QRS: 100; QT Interval: 420; Corrected QT Interval (QTc): 419; P Wave Portal: 25; QRS Wave Portal: -1; T Wave Portal : 42; Blood Pressure: 184/100 [ECG DIAGNOSTIC STATEMENTS] Date of Test: 06/07/2015 08:14:11; Summary: Sinus Bradycardia WITHIN NORMAL LIMITS 17-Dec-2014 Emergency Department Summary Result: Comments: See Note; NOTES: [facility] Medical Records Department [address] [place] [address] Emergency Department Summary MR#: [id number] Acct: [id number] Name: ANNALISA CISNEROS Rep #: [id number] : 1950 64 From: Ayleen Storm MD [...] discharged. Ayleen Storm MD T: NTS JOB: [id number] 12/17/14 0716 <Electronica lly signed by Ayleen Storm MD> Date Ayleen Storm MD CC: Tammie Durham MD Date Dictated: 12/06/141556 Date Transcribed: 12/06/141556 Truss Maker: Signed 06-Dec-2014 Discharge Instruction Result: Comments: See Note; NOTES: [facility] Medical Records Department [address] [place] [address] Discharge Instruction 12/06/14 1551 MR#: [id number] Acct: [id number] Name: ANNALISA CISNEROS Rep #: [id number] : 1950 64 From: Ayleen Storm MD [...] problems, contact your doctor. Call [facility] ([phone]) or report to the closest Emergency Room. Call 911 if necessary. 12/06/14 1346 <Electronically signed by Ayleen Storm MD> Date Ayleen Storm MD Cosigner Signature (If In dicated): Date CC: Tammie Durham MD 06-Dec-2014 Abdomen/Pelvis without Cont Result: Comments: See Note; NOTES: [facility] Imaging Services [address] [place] [address] CAT Scan Report MR#: [id number] Acct: [id number] Name: ANNALISA CISNEROS Rep #: [id number] : 1950 F 64 From: Alexander Alcala MD PCP: Tammie Durham MD Status: REG ER Study: Abdomen/Pelvis without Cont Date of Exam: 12/06/14 Exam# [id number] Ordering Dr: Ayleen Storm MD S DY: CT ABDOMEN AND PELVIS WITHOUT CONTRAST REASON [...] Alexander Alcala MD at 15:30 EDT Tel [phone], Service support [phone], CC: Ayleen Storm MD; Tammie Durham MD Truss Maker: Signed Family History Unknown Family Member Name Dates Details Family Members In General Comments: healthy Status: Active Social History Name Dates Details Caffeine Use Comments: can of coke qod Status: Active 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 run 18 miles a week Status: Active Living Situation Comments: , Lives with spouse Status: Active No Drug Use Status: Active Non Drinker/No Alcohol Use Status: Active Non Smoker/No Tobacco Use Status: Active Tobacco use: Never smoker. Status: Active Smoking Status Name Dates Details Never smoker Vital Signs Date Test Result Details 21-Sce-664535:30 Temperature 98.4 f Comments: Method: Temporal Pulse [...] Calculated 1.53 m2 Head Circumference 0.00 cm 39-Tqg-219026:13 Temperature 97.6 f Comments: Method: Oral Pulse [...] 0.00 cm Results Date Description Value Details 6-Vvx-382516:50 Basic Metabolic Profile (BMP) Comments: [facility] [address] [place], [address] GAP 8 (Normal) Range: 5-15 CO2 27.0 [...] Comments: Please note revised GLUCOSE reference range ucdrzuuoj44/07/2017. 7-Xoq-271138:50 CBC W/Diff, Automated Comments: [facility] [address] [place], [place], [id number] Absolute Lymph 1.07 {X10_3/ul} (Normal) Range: 0.83-4.51 [...] CREATININE RATIO Comments: PATIENT WAS FASTINGPERFORMED BY: [facility] CenterDxqlhp[facility]87 [facility] [id number] ([id number]) AND (16220) Microalb/Creat Ratio 13.8 {mg/g_creat} (Normal) Range: 0.0-30.0 Microalbumin, Urine 24.0 ug/mL (Abnormal) Range: 0.0-17.0 Creatinine, Urine 173.4 mg/dL (Normal) Range: 15.0-278.0 :24 METABOLIC PANEL, COMPREHENSIVE Comments: PATIENT WAS FASTINGPERFORMED BY: [employer] Lxhjvj6488 [facility] [id number] (04072) ALT (SGPT) 19 [iU]/L (Normal) Range: 0-32 [...] mg/dL (Normal) Range: 65-99 :24 LIPID PANEL (12211) Comments: PATIENT WAS FASTINGPERFORMED BY: [facility] CenterMudgrb7714 [facility] [id number]; apt. 07-13-15 LDL/HDL Ratio 3.1 {ratio_units} (Normal) [...] Cholesterol, Total 214 mg/dL (Abnormal) Range: 100-199 91-Hgs-12757:24 CBC with auto diff Comments: PATIENT WAS FASTINGPERFORMED BY: [facility] CenterOabbpp2553 [facility] [id number] Information: [id number] (42897) Immature Grans (Abs) 0.0 {x10E3/uL} (Normal) Range: [...] 3.77-5.28 WBC 5.3 {x10E3/uL} (Normal) Range: 3.4-10.8 22-Qpi-085422:30 Urinalysis, Complete Comments: Order Date: 12/06/14How was Urine Obtained? CLEAN CATCHTest performed at:[facility] [address] [place], [place] [address] MUCUS, URINE 0 SEEN {/hpf} (Normal) BACTERIA [...] (Normal) CLARITY Clear (Normal) COLOR Straw (Normal) 22-Jan-20128:49 Rapid Strep Test, Office (81451) Rapid Strep Test, Office Positive (Normal) 67-Yjr-99875:03 METABOLIC PANEL, COMPREHENSIVE Comments: PATIENT WAS FASTINGPERFORMED BY: [facility] CenterUtvrnd7768 [facility] [id number] (26713) ALT (SGPT) 22 [iU]/L (Normal) Range: 0-40 [...] Glucose, Serum 91 mg/dL (Normal) Range: 65-99 52-Edb-67019:03 CBC WITH MANUAL DIFF Comments: PATIENT WAS FASTINGPERFORMED BY: [facility] [id number] Information: [id number] (88945) Baso (Absolute) 0.0 {x10E3/uL} (Normal) Range: 0.0-0.2 [...] 5.0 {x10E3/uL} (Normal) Range: 4.0-10.5 :03 TSH (62038) Comments: PATIENT WAS FASTINGPERFORMED BY: [facility] Ykryyn2880 [facility] [id number] TSH 1.390 {uIU/mL} (Normal) Range: 0.450-4.500 :03 LIPID PANEL (00627) Comments: PATIENT WAS FASTINGPERFORMED BY: [facility] Zxxdlk8092 [facility] [id number] LDL/HDL Ratio 4.0 {ratio_units} (Abnormal) Range: 0.0-3.2 LDL Cholesterol Calc 171 mg/dL (Abnormal) Range: 0-99 VLDL Cholesterol Jorge Luis 50 mg/dL (Abnormal) Range: 5-40 HDL Cholesterol 43 mg/dL (Normal) Comments: According to ATP-III Guidelines, HDL-C >59 mg/dL is considered anegative risk factor for CHD. Triglycerides 248 mg/dL (Abnormal) Range: 0-149 Cholesterol, Total 264 mg/dL (Abnormal) Range: 100-199 59-Anh-65220:12 LQD PAP 606328 ADEQ Comment (Normal) Comments: Satisfactory for evaluation. Endocervical component may not bedistinguished in cases of atrophy. COMM . (Normal) DIAGN Comment (Normal) Comments: NEGATIVE FOR INTRAEPITHELIAL LESION AND MALIGNANCY.CELLULAR CHANGES ASSOCIATED WITH ATROPHY ARE PRESENT. HPV RFLX Comment (Normal) Comments: The HPV DNA reflex criteria were not met with this specimenresult therefore, no HPV testing was performed. .Performed At: [address] [id number] PAPSMR Comment (Normal) Comments: The Pap smear is a screening test designed to aid in thedetection of premalignant and malignant conditions of theuterine cervix. It is not a diagnostic procedure andshould not be used as the sole means of detecting cervicalcancer. Both false-positive and false-negative reports dooccur. . PERFORM Comment (Normal) Comments: Vandana Aaron, Cover Inspector ([facility]) 9-Age-087259:22 BIL DIA DIGITAL & CAD Radiology Report See Note (Normal) Comments: Exam Number: [id number] MAMMOGRAM, UNILATERAL LEFT DIAGNOSTIC DIGITAL AND CAD [...] mammograms werealso examined with computer-aided detection software ([employer] Reported By: LIZET CONRAD M.D. :38 GLU [...] mg/dL VLDL 49 mg/dL (Abnormal) Range: 5-40 22-Mni-609899:38 BILAT DIAG DIGITAL & CAD Radiology Report See Note (Normal) Comments: Exam Number: [id number] MAMMOGRAM, BILATERAL DIAGNOSTIC DIGITAL AND CAD HISTORYAbnormal [...] werealso exa mined with computer-aided detection software ([employer] Reported By: LIZET CONRAD M.D. 43-Bxe-075239:53 BILAT SCRN DIGITAL & CAD Radiology Report See Note (Normal) Comments: Exam Number: [id number] MAMMOGRAM, BILATERAL SCREENING DIGITAL AND CAD HISTORYRoutine [...] reported having had a previous [place]ogramperformed in [place], [place]. That was performed 17 years ago [...] mammograms werealso examined with computer-aided detection software ([employer] Reported By: LIZET CONRAD M.D. :08 ABDOMEN W/WO CONTRAST Radiology Report See Note (Normal) Comments: Exam Number: [id number] CT ABDOMEN WITHOUT AND WITH INTRAVENOUS CONTRAST [...] 2006 scan. Reported By: HEATH FREED M.D. :45 BMP Comments: COMMENTS: BED 6 DR White*: [...] 3.5-5.1 NA 143 mmol/L (Normal) Range: 136-145 :30 COMPLETE UA Comments: COMMENTS: BED 6 DR White*: NOT APPLICABLE BACTERIA 0 SEEN {/hpf} (Normal) [...] Current non-smoker) Back pain, lumbosacral : Reviewed Glass Driller Letter Indication: Back pain, lumbosacral Back pain, [...] woman exam Planned Observations Thin prep Pap (71267)Indication: Well woman exam On: :43 Request TSH (51066)Indication: Hyperlipidemia On: 45-Dad-938230:33 Request Metabolic Panel, Comprehensive (36580)Indication: Hyperlipidemia On: :29 Request Lipid Panel (34290)Indication: Hyperlipidemia On: :29 Request Lipid Panel (36451)Indication: WWV On: :27 Request Glucose (58727)Indication: WWV On: :27 Request Planned Procedures MRI PELVIS AND HIP LEFT WO CONTRAST On: 11-May-2018 Intent (07029)By: Omaira Villeda CNP, CNP, Mary E Toradol Injection, 30 mg (J1885)By: On: 11-May-2018 Intent Omaira Villeda CNP, CNP, Mary E MRI LUMBAR SPINE W/ CONTRAST On: 11-May-2018 Intent (95845)By: Omaira Villeda CNP, CNP, Mary E MRI PELVIS AND HIP LEFT WO THEN W On: 11-May-2018 Intent CONTRAST (13535)By: Omaira Villeda CNP, CNP, Mary E Radiology - Lumbar SpineBy: Hilario, On: 03-May-2018 Intent Terri Radiology - Hip - LeftBy: Hilario On: 03-May-2018 Intent Terri PHYSICAL THERAPY (60097)By: Hilario, On: 03-May-2018 Intent Terri MAMMOGRAM, SCREENING, BOTH BREAST On: 07-Jun-2015 Intent (64025)By: Tammie Durham MD EKG (42997)By: Anu Vega DO On: 20-May-2010 Intent Comments: nsr no acute changes Pulse Oximetry (43096)By: Marva On: 16-Mar-2009 Intent Tammie OLIVARES Aerosol Treatment (97676)By: Marva On: 16-Mar-2009 Intent Tammie OLIVARES Pulse Oximetry (36817)By: Rd On: 16-Mar-2009 Intent MARIE MAMMOGRAM, SCREENING, BOTH BREASTS On: 02-Dec-2007 Intent (07472)By: Tammie Durham MD CT - AbdomenBy: Tammie Durham MD On: 13-Oct-2006 Intent Comments: attn liver and kidney cyst follow up in three months Planned Medications INJECTION, KETOROLAC TROMETHAMINE, PER 15 MG Ordered: 11-May-2018 Pending Omaira Villeda CNP, CNP, Mary E Instructions Name Dates Details Current nonsmoker (Renamed [...] and biliary passages (235.3), Mixed hyperlipidemia (272.2), [facility] V72.31 [facility] Office Visit On: [...] for include depression. Encounter Diagnosis: Depression/Anxiety (300.4), [facility] Office Visit On: 13-Oct-2006 [...] biliary passages (235.3) [facility] Payers MedicareKenyatta/Ann Marie Cisneros; anh guarantor
--- OUTSIDE RECORDS SUMMARY | 2018-07-14 21:32 | XMS RPT_ITS | Continuity of Care Document ---
:1950 Author Organization [facility] Address [address] [place] [address] Phone Care Team Providers Name Role Phone [...] Status: Active Sciatica, left side (M54.32, 724.3) Status: Active Medications Name Dates Details DiazePAM 2 MG Oral Tablet Active 1 bid prn (2 MG) Gabapentin 300 MG Oral Capsule 1 (one) Capsule tid starting 05/13/18 for 30 days Quantity: 90 {Capsule} Refills: 0 Ordered:11-May-2018 Ronal GONZALEZ Omaira SPAINhunter GONZALEZ Omaira Beth Start : 11-May-2018 Active Comments:Dx Code -- M54.32Okay to fill new script 05/15/18Changed dose from 1 daily to1 bid x 2 days (05/11 and 05/12)1 tid there after (05/13-there after)Will finish the fill from 05/03/18 before filling this new script, so can fill this script 05/18/18. OAARS Shelby NINETY NINETY NINETY Medrol 4 MG Oral Tablet Therapy Pack 1 (one) Milligram TAD for 0 days Quantity: 1 {Package} Refills: 0 Ordered:11-May-2018 Taniakellyanh GONZALEZ, Omaira SPAINhunter GONZALEZ Omaira Beth Start : 11-May-2018 Active Comments:with food Meloxicam 7.5 MG Oral Tablet 1 (one) Tablet Tablet PO QD for 30 days Quantity: 30 {Tablet} Refills: 0 Ordered:03-May-2018 Alexandra Julian Start : 03-May-2018 Active Comments:Take with food Oxycodone-Acetaminophen 5-325 MG Oral Tablet 1 (one) Tablet q8hrs prn for 7 days Quantity: 21 {Tablet} Refills: 0 Ordered:12-May-2018 Taniakellyanh GONZALEZ, Omaira SPAINhunter GONZALEZ Omaira Beth Start : 12-May-2018 Active Comments:Oarrs run M25.552 Acute left hip painTwenty one AMOXICILLIN, 875MG (Oral Tablet) 1 Tablet bid for 10 days Quantity: 20 {Tablet} Refills: 0 Ordered:22-Jan-2012 Tammie Durham MD Start : 22-Jan-2012 End : 01-Feb-2012 Inactive Ativan 0.5 MG Oral Tablet 1 Tablet qd prn for 0 days Quantity: 30 {Tablet} Refills: 0 Ordered:03-May-2018 Scotty REMINGTONEkaterina Start : 13-Jul-2015 End : 03-May-2018 Inactive Comments:thirty CeleXA 20 MG Oral Tablet 1 Tablet qd for 0 days Quantity: 30 {Tablet} Refills: 3 Ordered:03-May-2018 Scotty JEWELRY DRILLING MACHINE OPERATORMatiasbill Chavez Start : 10-Aug-2015 End : 03-May-2018 Inactive [...] - PT Result: Comments: See Note; NOTES: [facility] [address] [place] [address] Fax REHABILITATION SERVICES INITIAL EVALUATION MR#: [id number] Acct: [id number] Name: ANNALISA CISNEROS Rep #: [id number] : 1950 68 From: Laura Anand PT, Cert. MDT Referring Dr.: ALIE Rich Status: REG RCR Insurance: [employer] [facility] Patient's Visit Information ANNALISA CISNEROS is a [...] to be FAXED BACK to us at [phone] for Medicare purposes. Please let m e know if there are questions or concerns regarding this plan of care. Physician Signature: Date: <Electronically signed by Luara Anand PT, Cert. MDT> 05/05/18 1749 CC: ALIE Rich; Anu Vega DO RAFFI Signed For Medicare only, by signing this I certify the plan of care. Physicians Signature Date 03-May-2018 HIP, UNI W/ Pelvis 2-3 Views Result: Comments: See Note; NOTES: [facility] Imaging Services [address] [place] [address] HIP, UNI W/ Pelvis 2-3 Views MR#: [id number] Acct: [id number] Name: ANNALISA CISNEROS Rep #: [id number] : 1950 F 68 From: Troy Mcdonald DO PCP: Anu Vega DO Status: REG CLI Study: HIP, UNI W/ Pelvis 2-3 Views Date of Exam: 05/03/18 Exam# [id number] Ordering Dr: Terri Rich UDY: X-RAY - PELVIS AND LEFT HIP [...] Troy Mcdonald DO at 17:10 EST Tel [phone], Service support , Fax CC: ALIE Rich; Anu Vega DO Portrait Studio Photographer: Signed 03-May-2018 L/S Spine Min 4 Views Result: Comments: See Note; NOTES: [facility] Imaging Services [address] [place] [address] L/S Spine Min 4 Views MR#: [id number] Acct: [id number] Name: ANNALISA CISNEROS Rep #: [id number] : 1950 F 68 From: Troy Mcdonald DO PCP: Anu Vega DO Status: REG CLI Study: L/S Spine Min 4 Views Date of Exam: 05/03/18 Exam# [id number] Ordering Dr: Terri Rich STUDY: X-RAY - [...] Troy Mcdonald DO at 17:12 EST Tel [phone], Service support , CC: ALIE Rich; Anu Vega DO Portrait Studio Photographer: Signed 02-May-2018 Discharge Instruction Result: Comments: See Note; NOTES: [facility] Medical Records Department [address] [place] [address] Discharge Instruction 05/02/181925 MR#: [id number] Acct: [id number] Name: Kathy CISNEROS Rep #: [id number] : 1950 68 From: Ayleen Storm MD [...] your Primary Care Provider. Call [facility] ([phone]) or report to the closest Emergency Room . Call 911 if necessary. 05/02/181926 <Electronically signed by Ayleen Storm MD> Date Ayleen Storm MD Cosigner Signature (If Indicated): Date CC: Anu Vega 02-May-2018 Emergency Department Summary Result: Comments: See Note; NOTES: [facility] Medical Records Department [address] [place] [address] Emergency Department Summary 05/02/18 1739 MR#: [id number] Acct: [id number] Name: ANNALISA CISNEROS Rep #: [id number] : 1950 68 From: Ayleen Sotrm MD PCP: Anu Vega DO Status: REG [...] groin strain This note was generated with [employer] dictation software. It may contain incorrect words, [...] problems, contact your Primary Care Provider. Call [employer] [facility] ([phone]) or report to the closest Emergency Room. Call 911 if necessary. 1925 <Electronically signed by Ayleen Storm MD> Date Ayleen Storm MD Cosigner Signature (If Indicated): Date ____ CC: Anu Vega 07-Jun-2015 EKG (25642) Result: [MEASUREMENTS ANALYSIS] Date of Test: 06/07/2015 08:14:11; Heart Rate: 59; WA Interval: 164; QRS: 100; QT Interval: 420; Corrected QT Interval (QTc): 419; P Wave [place]: 25; QRS Wave [place]: -1; T Wave [place] : 42; Blood Pressure: 184/100 [ECG DIAGNOSTIC STATEMENTS] Date of Test: 06/07/2015 08:14:11; Summary: Sinus Bradycardia WITHIN NORMAL LIMITS 17-Dec-2014 Emergency Department Summary Result: Comments: See Note; NOTES: [facility] Medical Records Department [address] [place] [address] Emergency Department Summary MR#: [id number] Acct: [id number] Name: ANNALISA CISNEROS Rep #: [id number] : 1950 64 From: Ayleen Storm MD PCP: Tammie Durham MD Status: [facility] DATE OF SERVICE: 12/06/2014 CHIEF COMPLAINT: [...] discharged. Ayleen Storm MD T: NTS JOB: [id number] 12/17/14 0716 <Electronica lly signed by Ayleen Storm MD> Date Ayleen Storm MD CC: Tammie Durham MD Date Dictated: 12/06/14 155 Date Transcribed: 12/06/141556 Portrait Studio Photographer: Signed 06-Dec-2014 Discharge Instruction Result: Comments: See Note; NOTES: [facility] Medical Records Department [address] [place] [address] Discharge Instruction 12/06/14 155 MR#: [id number] Acct: [id number] Name: ANNALISA CISNEROS Rep #: [id number] : 1950 64 From: Ayleen Storm MD [...] problems, contact your doctor. Call [facility] ([phone]) or report to the closest Emergency Room. Call 911 if necessary. 12/06/14 1932 <Electronically signed by Ayleen Storm MD> Date Ayleen Storm MD Cosigner Signature (If In dicated): Date CC: Tammie Durham MD 06-Dec-2014 Abdomen/Pelvis without Cont Result: Comments: See Note; NOTES: [facility] Imaging Services [address] [place] [address] CAT Scan Report MR#: [id number] Acct: [id number] Name: ANNALISA CISNEROS Rep #: [id number] : 1950 F 64 From: Alexander Alcala MD PCP: Tammie Durham MD Status: REG ER Study: Abdomen/Pelvis without Cont Date of Exam: 12/06/14 Exam# [id number] Ordering Dr: Ayleen Storm MD S DY: [...] Alexander Alcala MD at 15:30 EDT Tel [phone], Service support [phone], CC: Ayleen Storm MD; Tammie Durham MD Portrait Studio Photographer: Signed Family History Unknown Family Member Name Dates Details Family Members In General Comments: healthy Status: Active Social History Name Dates Details Caffeine Use Comments: can of coke qod Status: Active Current Work/Study Status Comments: 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 run 18 miles a week Status: Active Living Situation Comments: , Lives with spouse Status: Active No Drug Use Status: Active Non Drinker/No Alcohol Use Status: Active Non Smoker/No Tobacco Use Status: Active Tobacco use: Never smoker. Status: Active Smoking Status Name Dates Details Never smoker Vital Signs Date Test Result Details :57 Temperature 98.1 f Comments: Method: Temporal [...] 0.00 cm Results Date Description Value Details 8-Dpx-374587:50 Basic Metabolic Profile (BMP) Comments: [facility] [address] [place], [place], [id number] GAP 8 (Normal) Range: 5-15 CO2 27.0 [...] Comments: Please note revised GLUCOSE reference range byjkmxngb64/02/2018. 2-Cjv-639965:50 CBC W/Diff, Automated Comments: [facility] [address] [place], [address] Absolute Lymph 1.07 {X10_3/ul} (Normal) Range: 0.83-4.51 [...] 4.2-5.4 WBC 6.6 K/mm3 (Normal) Range: 4.4-11.0 08-Iml-51529:24 MICROALBUMIN: CREATININE RATIO Comments: PATIENT WAS FASTINGPERFORMED BY: [facility] CenterLnvkid6331 [facility] [id number] (26143) AND (27568) Microalb/Creat Ratio 13.8 {mg/g_creat} (Normal) Range: 0.0-30.0 Microalbumin, Urine 24.0 ug/mL (Abnormal) Range: 0.0-17.0 Creatinine, Urine 173.4 mg/dL (Normal) Range: 15.0-278.0 :24 METABOLIC PANEL, COMPREHENSIVE Comments: PATIENT WAS FASTINGPERFORMED BY: [employer] [id number] (41113) ALT (SGPT) 19 [iU]/L (Normal) Range: 0-32 [...] mg/dL (Normal) Range: 65-99 :24 LIPID PANEL (89722) Comments: PATIENT WAS FASTINGPERFORMED BY: [employer] [facility] [id number]; [address] LDL/HDL Ratio 3.1 {ratio_units} (Normal) Range: 0.0-3.2 [...] Cholesterol, Total 214 mg/dL (Abnormal) Range: 100-199 98-Rhb-74337:24 CBC with auto diff Comments: PATIENT WAS FASTINGPERFORMED BY: [facility] CenterFmtzbp5241 [facility] [id number] Information: [id number] (95849) Immature Grans (Abs) 0.0 {x10E3/uL} (Normal) Range: [...] 3.77-5.28 WBC 5.3 {x10E3/uL} (Normal) Range: 3.4-10.8 73-Eoz-036937:30 Urinalysis, Complete Comments: Order Date: 12/06/14How was Urine Obtained? CLEAN CATCHTest performed at:[facility] [address] [place] [address] MUCUS, URINE 0 SEEN {/hpf} (Normal) BACTERIA [...] Straw (Normal) 22-Jan-20128:49 Rapid Strep Test, Office (56399) Rapid Strep Test, Office Positive (Normal) 41-Dca-22559:03 METABOLIC PANEL, COMPREHENSIVE Comments: PATIENT WAS FASTINGPERFORMED BY: [facility] Jejnsb6134 [facility] [id number] (96409) ALT (SGPT) 22 [iU]/L (Normal) Range: 0-40 [...] Glucose, Serum 91 mg/dL (Normal) Range: 65-99 69-Xop-16296:03 CBC WITH MANUAL DIFF Comments: PATIENT WAS FASTINGPERFORMED BY: [facility] CenterAxmkcw0703 [facility] [id number] Information: [id number] (02310) Baso (Absolute) 0.0 {x10E3/uL} (Normal) Range: 0.0-0.2 [...] 5.0 {x10E3/uL} (Normal) Range: 4.0-10.5 :03 TSH (06567) Comments: PATIENT WAS FASTINGPERFORMED BY: [facility] Vhhcnr4008 [facility] [id number] TSH 1.390 {uIU/mL} (Normal) Range: 0.450-4.500 :03 LIPID PANEL (06861) Comments: PATIENT WAS FASTINGPERFORMED BY: [facility] Gpbfzg5499 [facility] [id number] LDL/HDL Ratio 4.0 {ratio_units} (Abnormal) Range: 0.0-3.2 LDL Cholesterol Calc 171 mg/dL (Abnormal) Range: 0-99 VLDL Cholesterol Jorge Luis 50 mg/dL (Abnormal) Range: 5-40 HDL Cholesterol 43 mg/dL (Normal) Comments: According to ATP-III Guidelines, HDL-C >59 mg/dL is considered anegative risk factor for CHD. Triglycerides 248 mg/dL (Abnormal) Range: 0-149 Cholesterol, Total 264 mg/dL (Abnormal) Range: 100-199 49-Cap-11987:12 LQD PAP [id number] ADEQ Comment (Normal) Comments: Satisfactory for evaluation. Endocervical component may not bedistinguished in cases of atrophy. COMM . (Normal) DIAGN Comment (Normal) Comments: NEGATIVE FOR INTRAEPITHELIAL LESION AND MALIGNANCY.CELLULAR CHANGES ASSOCIATED WITH ATROPHY ARE PRESENT. HPV RFLX Comment (Normal) Comments: The HPV DNA reflex criteria were not met with this specimenresult therefore, no HPV testing was performed. .Performed At: [address] [id number] [facility] Comment (Normal) Comments: The Pap smear is a screening test designed to aid in thedetection of premalignant and malignant conditions of theuterine cervix. It is not a diagnostic procedure andshould not be used as the sole means of detecting cervicalcancer. Both false-positive and false-negative reports dooccur. . PERFORM Comment (Normal) Comments: Vandana Aaron, [employer] (ASCP) 0-Sqz-059101:22 [facility] D[facility] CAD Radiology Report See Note (Normal) Comments: Exam Number: [id number] MAMMOGRAM, UNILATERAL LEFT DIAGNOSTIC DIGITAL AND CAD [...] mammograms werealso examined with computer-aided detection software ([employer] Reported By: LIZET CONRAD M.D. :38 [...] mg/dL VLDL 49 mg/dL (Abnormal) Range: 5-40 07-Zxc-139030:38 BILAT DIAG DIGITAL & CAD Radiology Report See Note (Normal) Comments: Exam Number: [id number] MAMMOGRAM, BILATERAL DIAGNOSTIC DIGITAL AND CAD HISTORYAbnormal [...] werealso exa mined with computer-aided detection software ([employer], [employer] Reported By: LIZET CONRAD M.D. 08-Khd-304698:53 BILAT SCRN DIGITAL & CAD Radiology Report See Note (Normal) Comments: Exam Number: [id number] MAMMOGRAM, BILATERAL SCREENING DIGITAL AND CAD HISTORYRoutine [...] reported having had a previous [place] in [place], [place] That was performed 17 years ago [...] mammograms werealso examined with computer-aided detection software ([employer] Reported By: LIZET CONRAD M.D. :08 ABDOMEN W/WO CONTRAST Radiology Report See Note (Normal) Comments: Exam Number: [id number] CT ABDOMEN WITHOUT AND WITH INTRAVENOUS CONTRAST [...] 2006 scan. Reported By: HEATH FREED M.D. 66-Swx-538025:45 BMP Comments: COMMENTS: BED 6 DR White*: [...] 3.5-5.1 NA 143 mmol/L (Normal) Range: 136-145 04-Yqf-896750:30 COMPLETE UA Comments: COMMENTS: BED 6 DR [...] Plan of Care Name Dates Details Instructions Body mass index (BMI) of 19.0-19.9 in adult : Follow up - Make appt after diagnostic tests Indication: Body mass index (BMI) of 19.0-19.9 in adult Current nonsmoker (Renamed from Current non-smoker) : Eprescribed prescriptions (G8553) Indication: Current nonsmoker (Renamed from Current non-smoker) Back pain, lumbosacral : Reviewed Software [employer] Letter Indication: Back pain, lumbosacral Back pain, [...] woman exam Planned Observations Thin prep Pap (91838)Indication: Well woman exam On: 31-Smw-53647:43 Request TSH (38425)Indication: Hyperlipidemia On: 10-Bjg-791720:33 Request Metabolic Panel, Comprehensive (04623)Indication: Hyperlipidemia On: :29 Request Lipid Panel (66820)Indication: Hyperlipidemia On: :29 Request Lipid Panel (91308)Indication: WWV On: :27 Request Glucose (55203)Indication: WWV On: :27 Request Planned Encounters Medical; 1 Week FU - On: 18-May-2018 10:45 [facility] Omaira Villeda CNP, CNP, Mary E Medical; 1 Week FU - On: 20-May-2018 7:00 [facility] Terri Rich Planned Procedures MRI PELVIS AND HIP LEFT WO CONTRAST On: 11-May-2018 Intent (46642)By: Omaira Villeda CNP, CNP, Mary E Toradol Injection, 30 mg (J1885)By: On: 11-May-2018 Intent Omaira Villeda CNP, CNP Lynda MRI LUMBAR SPINE W/ CONTRAST On: 11-May-2018 Intent (34541)By: Omaira Villeda CNP, CNP, Mary E MRI PELVIS AND HIP LEFT WO THEN W On: 11-May-2018 Intent CONTRAST (77500)By: Omaira Villeda CNP, CNP, Mary E Radiology - Lumbar SpineBy: Hilario On: 03-May-2018 Intent Terri Radiology - Hip - LeftBy: Hilario On: 03-May-2018 Intent Terri PHYSICAL THERAPY (28001)By: Hilario, On: 03-May-2018 Intent Terri MAMMOGRAM, SCREENING, BOTH BREAST On: 07-Jun-2015 Intent (20499)By: Tammie Durham MD EKG (40298)By: Anu Vega DO On: 20-May-2010 Intent Comments: nsr no acute changes Pulse Oximetry (83457)By: Marva On: 16-Mar-2009 Intent Tammie OLIVARES Aerosol Treatment (08029)By: Marva On: 16-Mar-2009 Intent Tammie OLIVARES Pulse Oximetry (66935)By: Rd On: 16-Mar-2009 Intent MARIE MAMMOGRAM, SCREENING, BOTH BREASTS On: 02-Dec-2007 Intent (12189)By: Tammie Durham MD CT - AbdomenBy: Tammie [...] Hypertension : Patient Instructions Indication: Hypertension Encounters Annotation/Addendum On: 12-May-2018 16:14 Encounter Diagnosis: Left [...] Has been to ER twice in the st couple of days for pain. CT [...] and biliary passages (235.3), Mixed hyperlipidemia (272.2), [facility] V72.31 [facility] Office [...] for include depression. Encounter Diagnosis: Depression/Anxiety (300.4), [facility] Visit [...] biliary passages (235.3) [facility] Payers MedicareAnthem/Ann Marie Cisneros; anh guarantor
--- OUTSIDE RECORDS SUMMARY | 2018-07-14 21:32 | XMS RPT_ITS | Continuity of Care Document ---
:1950 Author Organization [facility] Address [address] [place] [address] Phone Care Team Providers Name Role Phone Taniakellyanh GONZALEZOmaira Unavailable Marva OLIVARES, Tammie Fritz Unavailable Kiko Magana Unavailable Alexandra Julian Unavailable Unavailable Sara Walker Unavailable Unavailable Unavailable Unavailable Problems Name Dates [...] Quantity: 90 {Capsule} Refills: 0 Ordered:11-May-2018 Ronal GONZALEZ, Omaira Alicia GONZALEZ Lynda Start : 11-May-2018 [...] Quantity: 1 {Package} Refills: 0 Ordered:11-May-2018 Taniakellyanh GONZALEZ Omaira SPAINhunter GONZALEZ Lynda Start : 11-May-2018 Active Comments:with food Meloxicam [...] days Quantity: 30 {Tablet} Refills: 3 Ordered:03-May-2018 Long BUSINESS SERVICES ASSISTANTEkaterina Start : 10-Aug-2015 End : 03-May-2018 Inactive PREDNISONE, 20MG (Oral Tablet) Tablet daily for 0 days Quantity: 7 {Tablet} Refills: 0 Ordered:20-May-2010 CassiTerri LPN Start : 16-Mar-2009 End : 20-May-2010 [...] Dates Details 1982 Completed Date Value Details 05-May-2018 Inital Evaluation (1) - PT Result: Comments: See Note; NOTES: [facility] Physical [facility] [address] [place], [place] [address] Fax REHABILITATION SERVICES INITIAL EVALUATION MR#: [id number] Acct: [id number] Name: ANNALISA CISNEROS Rep #: [id number] : 1950 68 From: Laura Anand PT, Cert. MDT Referring Dr.: ALIE Rich Status: REG RCR Insurance: [employer] CARE PART A B ANTHEM Patient's Visit Information ANNALISA CISNEROS is a [...] to be FAXED BACK to us at [phone] for Medicare purposes. Please let m e [...] 2-3 Views Result: Comments: See Note; NOTES: [facility] Imaging Services [address] [place] [address] HIP, UNI W/ Pelvis 2-3 Views MR#: [id number] Acct: [id number] Name: ANNALISA CISNEROS Rep #: [id number] : 1950 F 68 From: Troy Mcdonald DO PCP: Anu Vega DO Status: REG CLI Study: HIP, UNI W/ Pelvis 2-3 Views Date of Exam: 05/03/18 Exam# [id number] Ordering Dr: Terri Rich UDY: X-RAY - [...] Troy Mcdonald DO at 17:10 EST Tel [phone], Service support , Fax CC: ALIE Rich; Anu Vega DO Cardiology Nurse Practitioner: Signed 03-May-2018 L/S Spine Min 4 Views Result: Comments: See Note; NOTES: [facility] Imaging Services [address] [place] [address] L/S Spine Min 4 Views MR#: [id number] Acct: [id number] Name: ANNALISA CISNEROS Rep #: [id number] : 1950 F 68 From: Troy Mcdonald DO PCP: Anu Vega DO Status: REG CLI Study: L/S Spine Min 4 Views Date of Exam: 05/03/18 Exam# [id number] Ordering Dr: Terri Rich STUDY: X-RAY - [...] the lumbar spine. Electronically S igned: Troy McdonaldDO at 17:12 EST Tel [phone], Service support , CC: ALIE Rich; Anu Vega DO Cardiology Nurse Practitioner: Signed 02-May-2018 Discharge Instruction Result: Comments: See Note; NOTES: [facility] Medical Records Department [address] [facility] [place] [address] Discharge Instruction 05/02/181925 MR#: [id number] Acct: [id number] Name: Kathy CISNEROS ROSAMARIA Rep #: [id number] : 1950 68 From: Ayleen Storm MD [...] your Primary Care Provider. Call [facility] ([phone]) or report to the closest Emergency Room . Call 911 if necessary. 05/02/181926 <Electronically signed by Ayleen Storm MD> Date Ayleen Storm MD Cosigner Signature (If Indicated): Date CC: Anu Vega DO 02-May-2018 Emergency Department Summary Result: Comments: See Note; NOTES: [facility] Medical Records Department [address] [address] Emergency Department Summary 05/02/18 1739 MR#: [id number] Acct: [id number] Name: ANNALISA CISNEROS Rep #: [id number] : 1950 68 From: Ayleen Storm MD [...] groin strain This note was generated with EnglishUp dictation software. It may contain incorrect words, [...] your Primary Care Provider. Call [facility] ([phone]) or report to the closest Emergency Room. Call 911 if necessary. 1925 <Electronically signed by Ayleen Storm MD> Date Ayleen Storm MD Cosigner Signature (If Indicated): Date ____ CC: Anu Vega DO 07-Jun-2015 EKG (73107) Result: [MEASUREMENTS ANALYSIS] Date of Test: 06/07/2015 08:14:11; Heart Rate: 59; ID Interval: 164; QRS: 100; QT Interval: 420; Corrected QT Interval (QTc): 419; P Wave [place]: 25; QRS Wave [place]: -1; T Wave [place] : 42; Blood Pressure: 184/100 [ECG DIAGNOSTIC STATEMENTS] Date of Test: 06/07/2015 08:14:11; Summary: Sinus Bradycardia WITHIN NORMAL LIMITS 17-Dec-2014 Emergency Department Summary Result: Comments: See Note; NOTES: [facility] Medical Records Department [address] [place] [address] Emergency Department Summary MR#: [id number] Acct: [id number] Name: ANNALISA CISNEROS Rep #: [id number] : 1950 64 From: Ayleen Storm MD PCP: Tammie Durham MD Status: [facility] ER DATE OF SERVICE: 12/06/2014 CHIEF COMPLAINT: [...] discharged. Ayleen Storm MD T: NTS JOB: [id number] 12/17/14 0716 <Electronica lly signed by Ayleen Storm MD> Date Ayleen Storm MD CC: Tammie Durham MD Date Dictated: 12/06/141556 Date Transcribed: 12/06/141556 Cardiology Nurse Practitioner: Signed 06-Dec-2014 Discharge Instruction Result: Comments: See Note; NOTES: [facility] Medical Records Department [address] [place] [address] Discharge Instruction 12/06/14 1551 MR#: [id number] Acct: [id number] Name: ANNALISA CISNEROS Rep #: [id number] : 1950 64 From: Ayleen Storm MD [...] problems, contact your doctor. Call [facility] ([phone]) or report to the closest Emergency Room. Call 911 if necessary. 12/06/14 1552 <Electronically signed by Ayleen Storm MD> Date Ayleen Storm MD Cosigner Signature (If In dicated): Date CC: Tammie Durham MD 06-Dec-2014 Abdomen/Pelvis without Cont Result: Comments: See Note; NOTES: [facility] Imaging Services [address] [place] [address] CAT Scan Report MR#: [id number] Acct: [id number] Name: ANNALISA CISNEROS Rep #: [id number] : 1950 F 64 From: Alexander Alcala MD PCP: Tammie Durham MD Status: REG ER Study: Abdomen/Pelvis without Cont Date of Exam: 12/06/14 Exam# [id number] Ordering Dr: Ayleen Storm MD S DY: [...] Alexander Alcala MD at 15:30 EDT Tel [phone], Service support [phone], CC: Ayleen Storm MD; Tammie Durham MD Cardiology Nurse Practitioner: Signed Family History Unknown Family Member Name Dates Details Family Members In General Comments: healthy Status: Active Social History Name Dates Details Caffeine Use Comments: can of coke qod Status: Active 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 run 18 miles a week Status: Active Living Situation Comments: , Lives with spouse Status: Active No Drug Use Status: Active Non Drinker/No Alcohol Use Status: Active Non Smoker/No Tobacco Use Status: Active Tobacco use: Never smoker. Status: Active Smoking Status Name Dates Details Never smoker Vital Signs Date Test Result Details 43-Sei-15428:57 Temperature 98.1 f Comments: Method: Temporal Pulse [...] Details :50 Basic Metabolic Profile (BMP) Comments: [facility] [address] [place], [place], [id number] GAP 8 (Normal) Range: 5-15 CO2 27.0 [...] Comments: Please note revised GLUCOSE reference range byuduxqcf51/02/2018. 8-Gxr-326342:50 CBC W/Diff, Automated Comments: [facility] [address] [place], [place], [id number] Absolute Lymph 1.07 {X10_3/ul} (Normal) Range: 0.83-4.51 [...] CREATININE RATIO Comments: PATIENT WAS FASTINGPERFORMED BY: [facility] CenterOkasqk4422 [facility] [id number] ([id number]) AND (98635) Microalb/Creat Ratio 13.8 {mg/g_creat} (Normal) Range: 0.0-30.0 Microalbumin, Urine 24.0 ug/mL (Abnormal) Range: 0.0-17.0 Creatinine, Urine 173.4 mg/dL (Normal) Range: 15.0-278.0 :24 METABOLIC PANEL, COMPREHENSIVE Comments: PATIENT WAS FASTINGPERFORMED BY: [facility] [facility] CenterIrggbb3066 [facility] [id number] (82298) ALT (SGPT) 19 [iU]/L (Normal) Range: 0-32 [...] mg/dL (Normal) Range: 65-99 :24 LIPID PANEL (78392) Comments: PATIENT WAS FASTINGPERFORMED BY: [employer] CenterMotlal7918 [facility] [id number]; [address] LDL/HDL Ratio 3.1 {ratio_units} (Normal) [...] Cholesterol, Total 214 mg/dL (Abnormal) Range: 100-199 47-Trx-15108:24 CBC with auto diff Comments: PATIENT WAS FASTINGPERFORMED BY: [facility] Dvvvky5520 [facility] [id number] Information: [id number] (28802) Immature Grans (Abs) 0.0 {x10E3/uL} (Normal) Range: [...] 3.77-5.28 WBC 5.3 {x10E3/uL} (Normal) Range: 3.4-10.8 85-Pyx-546558:30 Urinalysis, Complete Comments: Order Date: 12/06/14How was Urine Obtained? CLEAN CATCHTest performed at:[facility] [address] [place] [address] MUCUS, URINE 0 SEEN {/hpf} (Normal) BACTERIA [...] Straw (Normal) 22-Jan-20128:49 Rapid Strep Test, Office (84985) Rapid Strep Test, Office Positive (Normal) :03 METABOLIC PANEL, COMPREHENSIVE Comments: PATIENT WAS FASTINGPERFORMED BY: [facility] CenterVxwnsp2649 [facility] [id number] (24940) ALT (SGPT) 22 [iU]/L (Normal) Range: 0-40 [...] Glucose, Serum 91 mg/dL (Normal) Range: 65-99 43-Ysx-02420:03 CBC WITH MANUAL DIFF Comments: PATIENT WAS FASTINGPERFORMED BY: [facility] CenterQaolxw4854 [facility] [id number] Information: [id number] (45781) Baso (Absolute) 0.0 {x10E3/uL} (Normal) Range: 0.0-0.2 [...] 5.0 {x10E3/uL} (Normal) Range: 4.0-10.5 :03 TSH (98002) Comments: PATIENT WAS FASTINGPERFORMED BY: [facility] Dirkaq8372 [facility] [id number] TSH 1.390 {uIU/mL} (Normal) Range: 0.450-4.500 :03 LIPID PANEL (45103) Comments: PATIENT WAS FASTINGPERFORMED BY: [facility] Tsvhpq6704 [facility] [id number] LDL/HDL Ratio 4.0 {ratio_units} (Abnormal) Range: 0.0-3.2 LDL Cholesterol Calc 171 mg/dL (Abnormal) Range: 0-99 VLDL Cholesterol Jorge Luis 50 mg/dL (Abnormal) Range: 5-40 HDL Cholesterol 43 mg/dL (Normal) Comments: According to ATP-III Guidelines, HDL-C >59 mg/dL is considered anegative risk factor for CHD. Triglycerides 248 mg/dL (Abnormal) Range: 0-149 Cholesterol, Total 264 mg/dL (Abnormal) Range: 100-199 :12 LQD PAP [id number] ADEQ Comment (Normal) Comments: Satisfactory for evaluation. Endocervical component may not bedistinguished in cases of atrophy. COMM . (Normal) DIAGN Comment (Normal) Comments: NEGATIVE FOR INTRAEPITHELIAL LESION AND MALIGNANCY.CELLULAR CHANGES ASSOCIATED WITH ATROPHY ARE PRESENT. HPV RFLX Comment (Normal) Comments: The HPV DNA reflex criteria were not met with this specimenresult therefore, no HPV testing was performed. .Performed At: [facility] [id number] PAPSMR Comment (Normal) Comments: The Pap smear is a screening test designed to aid in thedetection of premalignant and malignant conditions of theuterine cervix. It is not a diagnostic procedure andshould not be used as the sole means of detecting cervicalcancer. Both false-positive and false-negative reports dooccur. . PERFORM Comment (Normal) Comments: Vandana Aaron, Human Resources Coordinator ([facility]) 6-Yhq-964178:22 [facility] DIGITAL & CAD Radiology Report See Note (Normal) Comments: Exam Number: [id number] MAMMOGRAM, UNILATERAL LEFT DIAGNOSTIC DIGITAL AND CAD [...] mammograms werealso examined with computer-aided detection software ([employer], [employer] Reported By: LIZET CONRAD M.D. :38 [...] mg/dL VLDL 49 mg/dL (Abnormal) Range: 5-40 72-Icf-339344:38 [facility] DIGITAL & CAD Radiology Report See Note (Normal) Comments: Exam Number: [id number] MAMMOGRAM, BILATERAL DIAGNOSTIC DIGITAL AND CAD HISTORYAbnormal [...] werealso exa mined with computer-aided detection software ([employer], [employer] Reported By: LIZET CONRAD M.D. 83-Min-929487:53 [facility] Radiology Report See Note (Normal) Comments: Exam Number: [id number] MAMMOGRAM, BILATERAL SCREENING DIGITAL AND CAD HISTORYRoutine [...] reported having had a previous [place]ogramperformed in [place], [place]. That was performed 17 years ago [...] mammograms werealso examined with computer-aided detection software ([employer], [employer], [employer] Reported By: LIZET CONRAD M.D. 59-Eqp-64914:08 ABDOMEN W/WO CONTRAST Radiology Report See Note (Normal) Comments: Exam Number: [id number] CT ABDOMEN WITHOUT AND WITH INTRAVENOUS CONTRAST [...] 2006 scan. Reported By: HEATH FREED M.D. 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 Tying Operator Letter Indication: Back pain, lumbosacral Back pain, [...] woman exam Planned Observations Thin prep Pap (76443)Indication: Well woman exam On: 20-Zwa-32833:43 Request TSH (36643)Indication: Hyperlipidemia On: :33 Request Metabolic Panel, Comprehensive (00171)Indication: Hyperlipidemia On: :29 Request Lipid Panel (43117)Indication: Hyperlipidemia On: :29 Request Lipid Panel (23705)Indication: WWV On: :27 Request Glucose (53477)Indication: WWV On: :27 Request Planned Encounters Medical; 1 Week FU - On: 18-May-2018 10:45 [facility] Ronal GONZALEZ LyndaIgnacia Villeda CNP, Omaira Beth Medical; 1 Week FU - On: 20-May-2018 7:00 [facility] Terri Rich Planned Procedures MRI PELVIS AND HIP LEFT WO CONTRAST On: 11-May-2018 Intent (32702)By: Taniasaleem GONZALEZ Omaira Villeda CNP, Omaira Beth Toradol Injection, 30 mg (J1885)By: On: 11-May-2018 Intent Taniasaleem GONZALEZ Omaira Villeda CNP, Omaira Beth MRI LUMBAR SPINE W/ CONTRAST On: 11-May-2018 Intent (09094)By: Ronal GONZALEZ Omaira Villeda CNP, Omaira Beth MRI PELVIS AND HIP LEFT WO THEN W On: 11-May-2018 Intent CONTRAST (87353)By: Taniasaleem GONZALEZ Omaira Villeda CNP, Omaira Beth Radiology - Lumbar SpineBy: Hilario On: 03-May-2018 Intent Terri Radiology - Hip - LeftBy: Hilario On: 03-May-2018 Intent Terri PHYSICAL THERAPY (52739)By: Hilario On: 03-May-2018 Intent Terri MAMMOGRAM, SCREENING, BOTH BREAST On: 07-Jun-2015 Intent (62586)By: Marva OLIVARES, Tammie Fritz EKG (31071)By: Anu Vega DO On: 20-May-2010 Intent Comments: nsr no acute changes Pulse Oximetry (38953)By: Marva On: 16-Mar-2009 Intent Tammie OLIVARES Aerosol Treatment (31726)By: Marva On: 16-Mar-2009 Intent Tammie OLIVARES Pulse Oximetry (79769)By: Rd On: 16-Mar-2009 Intent MARIE MAMMOGRAM, SCREENING, BOTH BREASTS On: 02-Dec-2007 Intent (08428)By: Tammie Durham MD CT - AbdomenBy: Tammie Durham MD On: 13-Oct-2006 Intent Comments: attn liver and kidney cyst follow up in three months Planned Medications INJECTION, KETOROLAC TROMETHAMINE, PER 15 MG Ordered: 11-May-2018 Pending Omaira Villeda CNP, CNP, Omaira Beth Instructions Name Dates Details Current nonsmoker (Renamed [...] Hypertension : Patient Instructions Indication: Hypertension Encounters Phone Encounter On: 11-May-2018 10:41 Encounter Diagnosis: [...] and biliary passages (235.3), Mixed hyperlipidemia (272.2), [facility] V72.31 [facility] Office Visit [...] for include depression. Encounter Diagnosis: Depression/Anxiety (300.4), [facility] Office Visit On: [...]
--- OUTSIDE RECORDS SUMMARY | 2018-07-14 21:33 | XMS RPT_ITS ---
:1950 Author Organization OHIP Care Team Providers Name Role Phone Tammie Durham MD Referring Unavailable Omaira Villeda Attending Unavailable Omaira Villeda Consulting Unavailable Danilo Castillo Attending Unavailable Primay Care Physicia, No Primary Care Unavailable Ayleen Storm Attending Unavailable Gary, Anu Primary Care Unavailable Terri Rich PETAL CUTTER-C Attending Unavailable Terri Rich PETAL CUTTER-C Referring Unavailable Gary, Anu Primary Care Unavailable Terri Rich PETAL CUTTER-C Attending Unavailable Terri Rich PETAL CUTTER-C Referring Unavailable Gary, Anu Primary Care Unavailable Ronal Omaira Attending Unavailable Ronal Omaira Referring Unavailable Gary, Anu Primary Care Unavailable PROBLEMS PROBLEMS DATE TYPE CONDITION / CODE ATTENDING STATUS SOURCE 06/07/2018 Unknown M54.5 - Low back Terri Rich Active Durham pain / PETAL CUTTER-C [facility] M54.5(ICD-10) Hospital Repository 06/01/2018 Unknown R10.32 - Left Southern, Active Gurinder lower quadrant Ayleen [facility] pain / Hospital R10.32(ICD-10) Repository 06/01/2018 Unknown R10.30 - Lower JonathanDanilo eric Active Gurinder abdominal pain, [facility] unspecified / Hospital R10.30(ICD-10) Repository 06/01/2018 Unknown R10.2 - Pelvic JonathanDanilo Active Gurinder and perineal pain [facility] / R10.2(ICD-10) Hospital Repository PROCEDURES PROCEDURES No Procedure Records FoundRESULTS RESULTS SPINE LUMBAR Observed: 05/19/2018 Status: F Source: [place] (ROUTINE) 12:39 PM [facility] RE[facility]IT[facility] Imaging Services [address] [place] [address] Spine Lumbar (Routine) MR#: [id number] Acct: [id number] Name: GRANTIRISH L Rep #: [id number] : 1950 F 68 From: Haylie Hernandez PCP: Anu Vega DO Status: REG CLI Study: Spine Lumbar (Routine) Date of Exam: 05/19/18 Exam# [id number] Ordering Dr: Omaira Villeda STUDY: MRI LUMBAR SPINE WITHOUT CONTRAST REASON FOR EXAM: Female, 68 years old. LBP Lower Back Pain MRI - Lumbar. TECHNIQUE: Standardized fat and water weighted pulse sequences were obtained in the sagittal and axial planes. COMPARISON: X-ray dated May 03, 2018 FINDINGS: T12-L1: Normal endplates. Normal disc height, hydration and morphology. Normal bilateral facet joints. Normal central canal and bilateral lateral recesses. Normal bilateral intervertebral neural foramina. Normal lumbar lordosis. There is no substantial scoliosis. Normal conus medullaris that terminates at the T12 L1-2: Normal endplates. Normal disc height, hydration and morphology. Normal bilateral facet joints. Normal central canal and bilateral lateral recesses. Normal bilateral intervertebral neural foramina. L2-3: There is minimal disc space [...] anterolisthesis and mild disc bulge with mild central canal stenosis. There is mild bilateral foraminal stenosis. L5-S1: There is minimal disc space narrowing and endplates spondylosis. There is moderate facet arthropathy Normal visualized sacral ala. Normal visualized paraspinous soft tissue structures. MRI/Spine Lumbar (Routine) IMPRESSION: L3/L4: Disc protrusion with severe left foraminal stenosis. L4/L5: Severe facet arthropathy with grade 1 anterolisthesis. Electronically Signed: Haylie Hernandez MD at 11:52 EST Tel , Service support , CC: Omaira Villeda NP; Anu Vega DO Health Researcher: Signed PELVIS (ROUTINE) Observed: 05/19/2018 Status: F Source: [place] 12:39 PM [facility] REPOSITORY [facility] Imaging Services [address] [place] [id number] Pelvis (Routine) MR#: [id number] Acct: [id number] Name: IRISH CISNEROS Rep #: [id number] : 1950 F 68 From: Wilmar Soliman MD PCP: Anu Vega DO Status: REG CLI Study: Pelvis (Routine) Date of Exam: 05/19/18 Exam# [id number] Ordering Dr: Omaira Villeda PETAL CUTTER-C STUDY: MRI BILATERAL HIPS T PELVIS REASON FOR EXAM: Left hip/leg pain for 4 weeks. TECHNIQUE: Standardized fat and water weighted pulse sequences were obtained in all 3 orthogonal planes. COMPARISON: Radiographs 05/03/2018. FINDINGS: RIGHT HIP Normal hip joint without articular joint space narrowing. There is a small subchondral cyst in the anterior right acetabulum. Normal right labrum. Normal right femoral head. Normal right femoral neck and intratrochanteric region. Normal right gluteus minimus, medius and iliopsoas tendons and distal insertions. Normal right superior and inferior pubic rami. Normal right pubic symphysis. Normal [...] images 29, 30). There is also a low-grade strain of the distal left lumbar paraspinous musculature (inversion recovery coronal image 6; T2 axial images 6, 7). MRI/Pelvis (Routine) IMPRESSION: Low-grade strains of the left obturator externus muscle and distal left lumbar paraspinous musculature. Electronically Signed: Wilmar Soliman MD at 15:06 EST Tel , Service support , CC: Omaira Villeda NP; Anu Vega DO Health Researcher: Signed INITAL EVALUATION (1) Observed: 05/05/2018 Status: F Source: [facility] 5:49 PM [facility] REPOSITORY [facility] Physical Therapy [facility] [address] [place], [place] [address] Fax REHABILITATION SERVICES INITIAL EVALUATION MR#: [id number] Acct: [id number] Name: ANNALISA CISNEROS Rep #: [id number] : 1950 68 From: Laura Anand PT, Cert. MDT Referring Dr.: ALIE Rich Status: REG RCR Insurance: MEDICARE PART A B ANTHEM Patient's Visit Information ANNALISA CISNEROS is a 68 year old F referred to Physical Therapy by ALIE Martini with a diagnosis of LEFT HIP PAIN, LEFT SCIATICA AND LUMBOSACRAL BACK PAIN.. Date of Evaluation: 05/05/18 Physical Therapist: Laura Anand - Visit Plan Frequency: 2-3x /Week Duration: 4-6 Weeks Plan: MODALITIES NEEDED. POSTURE CORRECTION/STRENGTHENING, INSTRUCTION IN APPROPRIATE BODY MECHANICS AND ACTIVITY MODIFICATIONS. DLS STARTING WITH A NEUTRAL SPINE PROGRESSING ROM TOLERATED. HIEN LE ROM, STRETCHING AND STRENGTHENING. HEP INSTRUCTION. 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 OFF WORK [...] Scale: WORST 10/10, LEAST 5/10. Currently: 5/10. Commenced as a result of: NO APPARENT REASON. Symptoms at onset: LEFT BUTTOCK AND LEFT GROIN. Worse: RUNNING, TRYING TO STAND UP STRAIGHT, WALKING, LIFTING, TWISTING, GETTING IN/OUT OF CAR. TRYING TO SLEEP IN BED. Better: LYING ON COUCH WITH HEAD UP, HEAT, EXCEDERIN, OXICODONE, GABAPENTIN, MALOXICAM. Disturbed sleep: YES. Previous history/Previous treatment: NO BACK SURGERY. NO CORINNE, NO CHIRO. NO PHYSICAL THERAPY. PATIENT DENIES ANY HISTORY OF LOW BACK PROBLEMS. PATIENT ALSO DENIES ANY HISTORY OF HIP PROBLEMS. Coughing/sneezing/straining: NO. Gait: PATIENT REPORTS WALKING IS DIFFICULT AND SHE CAN NOT WALK AT A NORMAL PACE AND SHE CAN NOT STAND UP STRAIGHT. SHE LIMPS BECAUSE OF THE PAIN. Difficulty initiating urinatin: NO. Accidents: NO. Unexplained weight loss: NO. Imaging: NORMAL X-RAY OF PELVIS AND LEFT HIP. ABDOMINAL CAT SCAN ALSO APPEARS NORMAL. LUMBAR X-RAY 05/03/18: FINDINGS: Normal lumbar lordosis. There is no substantial scoliosis. There is. anterolisthesis of L4 and L5 which is unchanged from the prior exam. The. remainder the alignment is preserved. There is mild endplate spondylosis and disc space narrowing at multiple. levels. This appears unchanged in degree from the there is facet joint. degenerative change. There is no evidence of acute fracture or loss of. vertebral axial height. There is no demonstrated spondylolysis of the pars. interarticulares. There is atherosclerotic calcification of the abdominal aorta without a. demonstrated aneurysm. PMH: UNREMARKABLE. Recent major surgery: NO. PLOF (Prior Level of Function): UNLIMITED. - Objective Sitting/Standing Posture: POOR. PATIENT IS UNABLE TO SIT OR STAND UP STRAIGHT. Lordosis: NORMAL. Lateral shift: NO. Relevant shift: N/A. Active Correction of posture: WORSE. Other Observations: INDEP GAIT INTO PT WITHOUT ANY ASSISTIVE DEVICES LIMPING ON THE LEFT LE AND WITH DECREASED CADANCE AND INCREASED TRUNK FLEX. NO FULLY EXTENDING LEFT HIP. Motor deficit: RIGHT LE STRENGTH 5/5 WITH MMT'ING EXCEPT RIGHT HIP 4/5 PROVOKING PAIN LEFT ANTERIOR HIP. LLE STRENGTH: HIP 4/5 WITH ONLY [...] LE 2/3, LEFT QUAD AND ACHILLES 1/2. Dural Signs: POSTIVE LLE. NEGATIVE RIGHT. Lumbar mvmt loss: flex - MOD. ext - BUBBA. R SG - MOD. L SG - BUBBA. Core strength: POOR. Palpation: SHE REALLY DOES NOT HAVE ANY ACUTE TENDERNESS OF HER THORACIC SPINE, LUMBAR SPINE, SACRAL AREAS, PELVIS, GREATER TROCH OR BUTTOCKS BUT SHE IS TENDER WITH PALPATION OF THE PROXIMAL LEFT FEMUR AND ANTERIOR HIP. TREATMENT: GAIT TRAINING WITH STRAIGHT CANE TO IMPROVE SAFETY AND DECREASE LLE PAIN. PATIENT ABLE TO DEMO GOOD SEQUENCING AFTER INSTRUCTION GIVEN AND DEVIATIONS IMPROVED WITH CANE ALONG WITH SAFETY AND PAIN. PATIENT REPORTS SHE HAS A CANE AND WALKER AT HOME. - Goals Goal 1:: DECREASE C/O LLE SX'S. Goal Time Frame: 4-6 Weeks Goal 2:: IMRPOVE SITTING, STANDING, WALKING, BENDING, ADL AND SLEEP FUNCTION Goal Time Frame: 4-6 Weeks Goal 3:: INSTRUCT IN PROPHYLAXIS Goal Time Frame: 4-6 Weeks - Rehabilitation Potential Rehabilitation Potential: Fair - Anticipated Interventions Patient/Client Instruction: Educate patient on: Condition, Plan of Care, Risk Factors, Benefits of Fitness Program For the Purpose of:: To improve self management Therapeutic Exercise to Include: Strength training, Body mechanics, Postural training, Flexibilty training, Gait and locomotor training, Passive ROM, Active ROM, Dynamic Lumbar Stabilization For the Purpose of:: To decrease pain, To increase ROM, To improve muscle performance and motor function, To improve ability to perform ADL's, To increase tolerance to activity/condition/position, To improve ability of physical actions for home/community/work/leisure, To improve gait and locomotor functions Thermo therapy (hot pack): Yes Ultrasound (thermal/non thermal): Yes For the Purpose of:: To decrease pain, To decrease swelling/inflammation, To increase ROM, To improve nutrient delivery to tissue Thank you for the opportunity to evaluate your patient. For Medicare and Medicare HMO plans, please review the plan of care and approve it. It will need to be FAXED BACK to us at [phone] for Medicare purposes. Please let me know if there are questions or concerns regarding this plan of care. Physician Signature: Date: <Electronically signed by Laura Anand PT, Cert. MDT> 05/05/18 7355 CC: PETAL CUTTERJg Vega DO RAFFI Signed For Medicare only, by signing this I certify the plan of care. Physicians Signature Date HIP, UNI W/ PELVIS Observed: 05/03/2018 Status: F Source: [place] 2-3 VIEWS 10:36 AM [facility] RE[facility]ITORY [facility] Imaging Services [address] [place] [address] HIP, UNI W/ Pelvis 2-3 Views MR#: [id number] Acct: [id number] Name: ANNALISA CISNEROS Rep #: [id number] : 1950 F 68 From: Troy Mcdonald DO PCP: Anu Vega DO Status: REG CLI Study: HIP, UNI W/ Pelvis 2-3 Views Date of Exam: 05/03/18 Exam# [id number] Ordering Dr: Terri Rich STUDY: X-RAY - PELVIS AND LEFT HIP REASON FOR EXAM: Female, 68 years old. Hip pain after lifting a person. TECHNIQUE: Radiological exam, hip, unilateral, with pelvis when performed; 2 or 3 views. COMPARISON: CT of the abdomen and pelvis, April 30, 2018 and December 06, 2014. FINDINGS: There is a non-specific bowel gas pattern. Normal visualized soft tissue structures. There are atherosclerotic vascular calcifications. Normal bilateral iliac wings, sacroiliac joints and visualized sacrum. Normal bilateral superior and inferior pubic rami. Normal pubic symphysis. Normal bilateral ischial tuberosities. Normal visualized left femoral head. Normal left acetabulum. Normal left hip joint. RAD/HIP, UNI W/ Pelvis 2-3 Views IMPRESSION: Normal x-ray examination of the pelvis and left hip. Electronically Signed: Troy Mcdonald DO at 17:10 EST Tel [phone], Service support , CC: ALIE Rich; Anu Vega DO Health Researcher: Signed L/S SPINE MIN 4 Observed: 05/03/2018 Status: F Source: [place] VIEWS 10:36 AM [facility] RE[facility]ORY [facility] Imaging Services [address] [place] [address] L/S Spine Min 4 Views MR#: [id number] Acct: [id number] Name: ANNALISA CISNEROS Rep #: [id number] : 1950 F 68 From: Troy Mcdonald DO PCP: Anu Vega DO Status: REG CLI Study: L/S Spine Min 4 Views Date of Exam: 05/03/18 Exam# [id number] Ordering Dr: Terri Rich STUDY: X-RAY - LUMBAR SPINE REASON FOR EXAM: Female, 68 years old. Lower back pain after lifting. TECHNIQUE: 5 view(s) of the lumbar spine were obtained. COMPARISON: CT of the abdomen and pelvis, December 06, 2014 and April 30, 2018. FINDINGS: Normal lumbar lordosis. There is no substantial scoliosis. There is anterolisthesis of L4 and L5 which is unchanged from the prior exam. The remainder the alignment is preserved. There is mild endplate spondylosis and disc space narrowing at multiple levels. This appears unchanged in degree from the there is facet joint degenerative change. There is no evidence of acute fracture or loss of vertebral axial height. There is no demonstrated spondylolysis of the pars interarticulares. There is atherosclerotic calcification of the abdominal aorta without a demonstrated aneurysm. RAD/L/S Spine Min 4 Views IMPRESSION: Stable degenerative changes of the lumbar spine. Electronically Signed: Troy MercedDO shanti at 17:12 EST Tel [phone], Service support , CC: ALIE Rich; Anu Vega DO Health Researcher: Signed DISCHARGE INSTRUCTION Observed: 05/02/2018 Status: F Source: [place] 7:27 PM [facility] Medical Records Department [address] [place] [address] Discharge Instruction 05/02/181925 MR#: [id number] Acct: [id number] Name: ANNALISA CISNEROS Rep #: [id number] : 1950 68 From: Ayleen Storm MD [...] your Primary Care Provider. Call [facility] ([phone]) or report to the closest Emergency Room. Call 911 if necessary. 05/02/181926 <Electronically signed by Ayleen Storm MD> Date Ayleen Storm MD Cosigner Signature (If Indicated): Date CC: Anu Vega DO EMERGENCY DEPARTMENT Observed: 05/02/2018 Status: F Source: [place] SUMMARY 7:26 PM [facility] Medical Records Department [address] [place] [address] Emergency Department Summary 05/02/18 1739 MR#: [id number] Acct: [id number] Name: ANNALISA CISNEROS Rep #: [id number] : 1950 From: Ayleen Storm MD PCP: Anu Vega DO Status: REG ER - ER Visit Summary Date of Service: 05/02/18 Chief Complaint: Left inguinal pain History of Present Illness: The patient is a [...] numbness. Denies incontinence. Denies other complaints. Physical Examination: Vitals are stable. Patient is afebrile. Alert no acute distress. HEENT exam is unremarkable. Neck is supple. Lungs are clear and equal bilaterally. Heart is regular rate and rhythm. Abdomen is soft nontender nondistended. No guarding or rebound. Left inguinal tenderness with no hernia palpated. Back nontender, negative straight leg raise Extremities nontender, normal distal pulse, no calf tenderness Skin is warm and dry. No rash No focal neurologic deficit. Normal strength and sensation Remainder of exam is unremarkable. Emergency Department Course and Treatment: Patient is given morphine, Zofran IM. She continues to have pain and was given Valium p.o. She states this improved her pain. She continues to have pain but declines admission. She is able to walk to the bathroom. She was given a prescription for Valium. She is advised to follow-up with her primary care physician tomorrow. She is advised return to ED for any worsening complaints. Disposition: Discharge home Impression: Left groin strain This note was generated with [employer] dictation software. It may contain incorrect words, [...] your Primary Care Provider. Call [facility] ([phone]) or report to the closest Emergency Room. Call 911 if necessary. 05/02/181925 <Electronically signed by Ayleen Storm MD> Date Ayleen Storm MD Cosigner Signature (If Indicated): Date CC: Anu Vega DO EMERGENCY DEPARTMENT Observed: 04/30/2018 Status: F Source: [place] SUMMARY 6:33 PM [facility] RE[facility]ITORY [facility] Medical Records Department [address] [place] [address] Emergency Department Summary 04/30/18 1248 MR#: [id number] Acct: [id number] Name: ANNALISA CISNEROS Rep #: [id number] : 1950 68 From: Danilo Castillo MD PCP: Care Physician, No Primary Status: DEP ER - ER Visit Summary Date of Service: 04/30/18 Chief Complaint: Lower abdominal pain History of Present Illness: The patient is a [address] Durham. She reports that she has low back pain. However, when asked about the location of that she points to the left buttock and the left inguinal region. She reports that radiates down the front of her left leg to her knee. States it is been present since April 17, but has gotten much worse today. It is a sharp pain that is 10 out of 10 severity. Is worsened by twisting, bending, or standing. She relieved partially by remaining still. She denies any numbness or weakness in her legs. No problems with her bowels or her bladder. No groin numbness. She does report that she has had a change in activity. 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 No fall or MVA. Patient denies any fever, chills, dysuria, frequency, or other complaints. Physical Examination: Vitals: Stable. Afebrile. General: Well-nourished and well-developed. Head: Normocephalic atraumatic. Neck: Supple, no lymphadenopathy. No JVD. Nontender. Cardiovascular: Regular rate and rhythm. No murmurs. Respiratory: No respiratory distress. Clear to auscultation bilaterally. Abdominal: Soft, moderate tenderness palpation in the left inguinal region, nondistended, normal bowel sounds. No guarding, rebound, or peritoneal signs. Back: Nontender. No vertebral tenderness. No pain in the sciatic notch over the left buttock. Extremities: Nontender, no edema. 2+ dorsalis pedis pulse bilaterally. Negative straight leg raise bilaterally. Skin: Normal color, no rash. Neurologic: Alert and oriented 3. Cranial nerves II through XII are intact. Normal strength and sensation. 5 out of 5 dorsiflexion, plantarflexion, extensor hallucis longus bilaterally. Psych: Normal affect. Test Results: CBC is remarkable for segmented neutrophils of 74 lymphocytes of 16. Chem-7 is normal. Clinical Impression(s) from Imaging Studies Abdomen/Pelvis CT 04/30/18 11:32 IMPRESSION: Small hepatic cysts. Small left renal cysts. Electronically Signed: Alexander Alcala MD at 12:55 EST Tel [phone], Service support , Emergency Department Course and Treatment: Patient was treated with morphine and Zofran. She has had some improvement, but still continues to experience pain Treatment Plan: At this time I do not have an explanation for the patient's pain. She will be discharged with Percocet and Colace. Instructed for Dr. Durham in 1-2 days if not improving. Return to the emergency department for any worsening symptoms. Disposition: To home in improved and stable condition. Impression: 1. Left inguinal pain, uncertain cause. This note was generated with [employer] dictation software. It may contain incorrect words, spelling, and punctuation that were not noted in review of the chart prior to signing ED Disposition - Plan for ED Patient: Disposition: Home or Assisted Living Chief Complaint: Back Instructions: ED Abdominal Pain Unkn Cause Prescriptions: Oxycodone HCl/Acetaminophen [Percocet 5/325] 1 tablet PO Q6H PRN PRN 5 Days #20 tablet PRN Reason: Pain Docusate Sodium [Colace] 100 mg PO DAILY #20 capsule Referrals: Tammie Durham MD [COURTESY STAFF PHYSICIAN] - 3-5 Days if not improving What to do if you have Problems For any increased pain, shortness of breath, bleeding, nausea or vomiting, chest pain, or any unexpected problems, contact your Primary Care Provider. Call [facility] ([phone]) or report to the closest Emergency Room. Call 911 if necessary. 04/30/18 1833 <Electronically signed by Danilo Castillo MD> Date Danilo Castillo MD Cosigner Signature (If Indicated): Date CC: No Primary Care Physician CBC W/DIFF, AUTOMATED Collected: 04/30/2018 Status: F Source: [place] 11:50 AM [facility] REPOSITORY TYPE CODE TESTS RESULT OUT OF RANGE REFERENCE UNITS LAB L100.1000 4.4-11.0 K/mm3 Normal WBC 6.6 LAB L100.1200 4.2-5.4 M/mm3 Normal RBC 4.71 LAB L100.1300 12.0-15.0 g/dl Normal HGB 14.1 LAB L100.1400 37-47 % Normal HCT 41.5 LAB L100.1500 81-99 fL Normal MCV 88.1 LAB L100.1600 27.0-32.0 pg Normal MCH 29.9 LAB L100.1700 32-36 g/gl Normal MCHC 34.0 LAB L100.1810 11.6-14.6 % Normal RDW CV 12.7 LAB L100.1820 35.1-43.9 fl Normal RDW SD 40.2 LAB L100.1900 150-450 K/mm3 Normal PLT 199 LAB L100.2000 6.2-12.0 fl Normal MPV 10.0 LAB L100.2100 47-70 % High NEUT% 73.5 LAB L100.2200 19-41 % Low LY% 16.2 LAB L100.2300 0-10 % Normal MONO% 8.0 LAB L100.2400 0-5 % Normal EO% 1.8 LAB L100.2500 0-1 % Normal BASO% 0.3 LAB L100.2550 0.0-0.9 % Normal IM GRAN % 0.200 Result Comment: IG% - Immature Granulocytes (promyelocytes, myelocytes and metamyelocytes) > 1% indicates that a LEFT SHIFT is Present. LAB L100.2620 2.0-7.7 X10 3/uL Normal Absolute Neut 4.9 LAB L100.2720 0.83-4.51 X10 3/ul Normal Absolute Lymph 1.07 Performed By: #### L100.0100 #### [facility] [address] [place], [address] BASIC METABOLIC Collected: 04/30/2018 Status: F Source: [place] PROFILE ([facility]) 11:50 AM [facility] REPOSIT[facility] TYPE CODE TESTS RESULT OUT OF RANGE REFERENCE UNITS LAB L501.0100 74-106 mg/dL Normal GLU 90 Result Comment: Please note revised GLUCOSE reference range effective 2017. LAB L501.1000 7-18 mg/dL Normal BUN 17 LAB L501.1100 0.55-1.02 mg/dL Normal CREAT,SERUM 0.72 Result Comment: The validity of the calculated GFR AND GFRAA in patients over 70 years has not been determined. Clinical correlation is essential. LAB L501.1110 >60 mL/min Normal EST GFR 86 Result Comment: Non- GFR Calc LAB L501.1115 >60 mL/min Normal EST GFR - AA 104 Result Comment: GFR Calc LAB L501.1255 ml/min Normal Estimated CRCL 39.71 LAB L501.1300 10-20 RATIO High BUN/CRE 23.8 LAB L501.2200 8.5-10 mg/dL Normal .1 CA 9.3 LAB L501.5300 136-14 mmol/L Normal 5 NA 141 LAB L501.5600 3.5-5. mmol/L Normal 1 K 3.5 LAB L501.5900 98-107 mmol/L Normal CL 106 LAB L501.6100 21.0-3 mmol/L Normal 2.0 CO2 27.0 LAB L501.6200 5-15 Normal GAP 8 Performed By: #### L500.2500 #### [facility] [address] [place], [address] ABDOMEN/PELVIS W IV CONT Observed: 04/30/2018 Status: F Source: [place] ONLY 11:33 AM [facility] RE[facility]ITORY [facility] Imaging Services [address] [place] [address] Abdomen/Pelvis W IV Cont ONLY MR#: [id number] Acct: [id number] Name: ANNALISA CISNEROS Rep #: [id number] : 1950 F 68 From: Alexander Alcala MD PCP: Care Physician, No Primary Status: REG ER Study: Abdomen/Pelvis W IV Cont ONLY Date of Exam: 04/30/18 Exam# [id number] Ordering Dr: Danilo Castillo MD STUDY: CT ABDOMEN AND PELVIS WITH CONTRAST REASON FOR EXAM: Female, 68 years old. Left inguinal pain. RADIATION DOSAGE (If Supplied By Facility): CTDIvol = ( 9.57 ) mGy, DLP = ( 271.03 ) mGycm TECHNIQUE: Transaxial images were obtained from the dome of the diaphragm to the symphysis pubis without oral contrast. 80ML ml of Isovue 300 contrast was administered. Sagittal and coronal images were reconstructed. Individualized dose optimization techniques were used for this CT. COMPARISON: Comparison is made with prior study dated December 06, 2014. FINDINGS: The visualized lung bases are unremarkable. The visualized portions of the heart are within normal limits. There is a 1.4 cm cyst in the left lobe of liver. 1 cm cyst is also seen along the anterior peripheral aspect of the right lobe of the liver. Normal gallbladder and extrahepatic biliary system. Normal spleen. Normal pancreas. Normal bilateral adrenal glands. Normal right kidney. Subcentimeters cysts are seen in the upper pole of the left kidney. Subcentimeter cyst in the lower pole of the left kidney as well. Normal visualized stomach. Normal small intestine. Normal colon. The appendix is visualized and appears normal. There is scattered atherosclerotic calcification of the abdominal aorta, without a demonstrated aneurysm. Normal inferior vena cava. Normal retroperitoneum. Normal urinary bladder. Small lymph nodes are seen in the inguinal regions bilaterally. Normal abdominal wall. There are degenerative changes of the visualized lumbar spine. CT/Abdomen/Pelvis W IV Cont ONLY IMPRESSION: Small hepatic cysts. Small left renal cysts. Electronically Signed: Alexander Alcala MD at 12:55 EST Tel [phone], Service support , CC: No Primary Care Physician; Danilo Castillo MD Health Researcher: Signed ALLERGIES ALLERGIES DATE TYPE / CODE NAME / CODE REACTION SEVERITY SOURCE 04/30/2018 Drug No Known Unknown [place] [facility] Allergy/4160 Allergies/F00 Hospital 33755(SNOMED 6604039(RXNOR Repository CT) M) ENCOUNTERS ENCOUNTERS ADMIT/DISCHARGE ACCOUNT ADMITTING ENCOUNTER LOCATION SOURCE NUMBER CLASS 06/04/2018 [id number] Ambulatory [place] Durham [address] [facility] ing:PT Repository 05/26/2018 9009 Ambulatory Building:[place] Practices Repository 05/19/2018 [id number] Ambulatory [place] Durham [address] [facility] ing:MRI Repository 05/03/2018 [id number] Ambulatory [place] Gurinder [address] [facility] ing:HPRAD Repository 05/02/2018/ [id number] Emergency Gurinder Gurinder [address] [facility] ing:ED Repository 04/30/2018/ [id number] Emergency Durham Durham [address] [facility] ing:ED Repository PAYERS PAYERS ENCOUNTER GUARANTOR PAYER SUBSCRIBER SOURCE 06/04/2018 IRISH Chavez Primary [place]ISH [place] [id number] MAGALYS Insurance:MEDICARE LILLYDOB: [place] PART A [facility] [id number] Hospital 24[address]Sts: (330) Number: Repository [phone] () [id number] Date:2015-03-22 06/04/2018 Secondary IRISH Vitaloster Insurance:ANTHEMPolic LILLYDOB: Community y Number: [id number] Hospital [id number] Repository Date:1891-92-77[address], [place] [address]UK: 06/04/2018 Tertiary NOT GIVENUNK [place] Insurance:SELF PAY [facility] Number: Effective Repository Date:2018-05-03 05/26/2018 Annalisa CisnerosDOB: Primary Annalisa CisnerosDOB: [place] Practices Insurance:MedicarePol [id number] Repository [address] [place], icy Number: [id number] [place] [place] [address]Tva: [address] AEffective [place] [address]Zjk: Date:0657-48-14Ssmo (HP)Tel: (330) Name:[employer] Box (HP) (WP) [address]36[address]Mezkgwwj, [place] [phone] (WP) [address]GB: 05/26/2018 Secondary Annalisa CisnerosDOB: [place] Practices Insurance:[place]/Supp [id number] [facility]ository [facility] Number: 2 [address] [place], [id number] [place] [address]Trg: Date:2533-61-85Zyrh ~(3 Name:[address] (HP)Tel: 573[address]Pjdxbsk, [place] [phone]: (493) (HT) [phone] 05/26/2018 Tertiary Annalisa CisnerosDOB: [place] Practices Insurance:AultcarePol [id number] Repository icy Number: [address] [place], [id number] [place] [address]Sgr: Date: - ~(3 8537-62-39Rhaf 30 HP)Tel: Name:[address], [place] (WP) [phone]: 05/26/2018 Tertiary Annalisa Chavez LillyDOB: [place] Practices Insurance:[place] [id number] Repository /[facility] Number: Elicia [place] [id number] [place] [address]Qmy: Date:2009-06-22 - ~(3 [id number] 30 ()Tel: Name:[address] [place] [address] () [phone]: 05/26/2018 Tertiary Annalisa Chavez LillyDOB: [place] Practices Insurance:[place] [id number] [place] [address] Elicia [place], Number: [place] [address]Nrp: [id number] ~(3 Date:2011-06-22 (HP)Tel: [id number] Name:[facility] Box () [address]Xuybcia, [place] [address]ID: 05/26/2018 Tertiary Annalisa CisnerosDOB: [place] Practices Insurance:[place] [id number] Repository /[facility] Number: Elicia [place] [id number] [place] [address]Oid: Date:2015-06-22 - ~(3 5744-06-17Fadw 30 ()Tel: Name:[address]Wgejfqw, [place] () [phone]: 05/19/2018 IRISH L Primary IRISH L Gurinder [id number] MAGALYS Insurance:MEDICARE LILLYDOB: [facility] elizabeth [place] [facility] [id number] Hospital [address]Pdz: (330) Number: Repository [phone] () [id number] Date:2018-05-11 05/19/2018 Secondary IRISH L [place] Insurance:ANTHEMPolic LILLYDOB: Community y Number: [id number] [facility] [id number] Repository Date:9909-18-98AC [address] [place] [address]EF: 05/19/2018 Tertiary NOT GIVENUNK Gurinder Insurance:SELF PAY [facility] Number: Effective Repository Date:2018-05-11 05/03/2018 ANNALISA HUNTLEY2 Primary ANNALISA LILLYDOB: Gurinder MAGALYS [facility], Insurance:MEDICARE [id number] [facility] [address]Oes: PART A [facility] Number: Repository () [id number] Date:2018-05-03 05/03/2018 Secondary ANNALISA LILLYDOB: [place] Insurance:ANTHEMPolic [id number] Community y Number: [facility] [id number] Repository Date:0015-15-47XP [address] [place] [address]JN: 05/03/2018 Tertiary NOT GIVENUNK Gurinder Insurance:SELF PAY [facility] Number: Effective Repository Date:2018-05-03 05/02/2018 IRISH L Primary IRISH L Gurinder [id number] MAGALYS Insurance:MEDICARE LILLYDOB: [place] PART A [facility] [id number] Hospital [address]Ycj: (683) Number: Repository [phone] () [id number] Date:2018-05-02 05/02/2018 Secondary IRISH L Gurinder Insurance:ANTHEMPolic LILLYDOB: Community y Number: [id number] Hospital [id number] Repository Date:1402-12-59VD [address] [place] [address]HK: 05/02/2018 Tertiary NOT GIVENUNK [place] Insurance:SELF PAY [facility] Number: Effective Repository Date:2018-05-02 04/30/2018 IRISH L Primary IRISH L Gurinder [id number] MAGALYS Insurance:MEDICARE LILLYDOB: [place] PART A [facility] [id number] Hospital [address]Kjj: (011) Number: Repository [phone] () [id number] Date:2018-04-30 04/30/2018 Secondary IRISH L [place] Insurance:ANTHEMPolic LILLYDOB: Community y Number: [id number] Hospital [id number] Repository Date:0370-97-30WW RYANNE 560330GWJFBIP, [place] [address]FZ: 04/30/2018 Tertiary NOT GIVENUNK Gurinder Insurance:SELF PAY [facility] Number: Effective Repository Date:2018-04-30
--- OUTSIDE RECORDS SUMMARY | 2018-07-14 21:33 | XMS RPT_ITS | Continuity of Care Document ---
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) Status: [...] 300 MG Oral Capsule 1 (one) Capsule PO QD for 30 days Quantity: 30 {Capsule} Refills: 0 Ordered:03-May-2018 Terri Rich Start : 03-May-2018 Active Comments:Kazwpdrx-945Puhloawh-249Pruwexgba-000OD Risk-200Thirty Meloxicam 7.5 MG Oral Tablet 1 (one) Tablet PO QD for 30 days Quantity: 30 {Tablet} Refills: 0 Ordered:03-May-2018 Terri Rich Start : 03-May-2018 Active Comments:Take with food AMOXICILLIN, 875MG (Oral Tablet) 1 Tablet bid for 10 days Quantity: 20 {Tablet} Refills: 0 Ordered:22-Jan-2012 Tammie [place] MD, MD, Tammie Fritz Start : 22-Jan-2012 End : 01-Feb-2012 Inactive Ativan 0.5 MG Oral Tablet 1 Tablet qd prn for 0 days Quantity: 30 {Tablet} Refills: 0 Ordered:03-May-2018 Ekaterina Fajardo LPN Start : 13-Jul-2015 End : 03-May-2018 Inactive Comments:thirty CeleXA 20 MG Oral Tablet 1 Tablet qd for 0 days Quantity: 30 {Tablet} Refills: 3 Ordered:03-May-2018 Ekaternia Fajardo LPN Start : 10-Aug-2015 End : 03-May-2018 Inactive PREDNISONE, 20MG (Oral Tablet) Tablet daily for 0 days Quantity: 7 {Tablet} Refills: 0 Ordered:20-May-2010 Terri Ye LPN Start : 16-Mar-2009 End : 20-May-2010 Inactive TOPROL XL, 25MG (Oral Tablet Extended Release 24 Hour) 1 (one) Tablet ER 24HR daily for 0 days Quantity: 30 {Tablet} Refills: 0 Ordered:13-Jul-2015 Tammie [place] MD, MD, Dana M Start : 13-Jul-2015 End : 13-Jul-2015 Inactive [...] Dates Details 1983 Completed Date Value Details 02-May-2018 Discharge Instruction Result: Comments: See Note; NOTES: [facility] Medical Records Department [address] [place] [address] Discharge Instruction 05/02/18 192 MR#: [id number] Acct: [id number] Name: Kathy CISNEROS Rep #: [id number] : 1950 68 From: yAleen Storm MD PCP: Anu Vega DO Status: [...] your Primary Care Provider. Call [facility] ([phone]) or report to the closest Emergency Room . Call 911 if necessary. 05/02/181926 <Electronically signed by Ayleen Storm MD> Date Ayleen Storm MD Cosigner Signature (If Indicated): Date CC: Anu Vega DO 02-May-2018 Emergency Department Summary Result: Comments: See Note; NOTES: [facility] Medical Records Department [address] [place] [address] Emergency Department Summary 05/02/18 1739 MR#: [id number] Acct: [id number] Name: ANNALISA CISNEROS Rep #: [id number] : 1950 68 From: Ayleen Storm MD [...] groin strain This note was generated with [employer] dictation software. It may contain incorrect words, [...] your Primary Care Provider. Call [facility] ([phone]) or report to the closest Emergency Room. Call 911 if necessary. 1925 <Electronically signed by Ayleen Storm MD> Date Ayleen Storm MD Cosigner Signature (If Indicated): Date ____ CC: Anu Vega 07-Jun-2015 EKG (20048) Result: [MEASUREMENTS ANALYSIS] Date of Test: 06/07/2015 08:14:11; Heart Rate: 59; IN Interval: 164; QRS: 100; QT Interval: 420; Corrected QT Interval (QTc): 419; P Wave Hammond: 25; QRS Wave Hammond: -1; T Wave Hammond : 42; Blood Pressure: 184/100 [ECG DIAGNOSTIC STATEMENTS] Date of Test: 06/07/2015 08:14:11; Summary: Sinus Bradycardia WITHIN NORMAL LIMITS 17-Dec-2014 Emergency Department Summary Result: Comments: See Note; NOTES: [facility] Medical Records Department [address] [place] [address] Emergency Department Summary MR#: [id number] Acct: [id number] Name: ANNALISA CISNEROS Rep #: [id number] : 1950 64 From: Ayleen Storm MD [...] discharged. Ayleen Storm MD T: NTS JOB: [id number] 12/17/14 0716 <Electronica lly signed by Ayleen Storm MD> Date Ayleen Storm MD CC: Tammie Durham MD Date Dictated: 12/06/141556 Date Transcribed: 12/06/141556 Section Repairer: Signed 06-Dec-2014 Discharge Instruction Result: Comments: See Note; NOTES: [facility] Medical Records Department [address] [place] [address] Discharge Instruction 12/06/141550 MR#: [id number] Acct: [id number] Name: ANNALISA CISNEROS Rep #: [id number] : 1950 64 From: Ayleen Storm MD [...] problems, contact your doctor. Call [facility] ([phone]) or report to the closest Emergency Room. Call 911 if necessary. 12/06/141551 <Electronically signed by Ayleen Storm MD> Date Ayleen Storm MD Cosigner Signature (If In dicated): Date CC: Tammie Durham MD 06-Dec-2014 Abdomen/Pelvis without Cont Result: Comments: See Note; NOTES: [facility] Imaging Services [address] [place] [address] CAT Scan Report MR#: [id number] Acct: [id number] Name: ANNALISA CISNEROS Rep #: [id number] : 1950 F 64 From: Alexander Alcala MD PCP: Tammie [place] MD Status: REG ER Study: Abdomen/Pelvis without Cont Date of Exam: 12/06/14 Exam# [id number] Ordering Dr: Ayleen Storm MD: CT ABDOMEN AND PELVIS WITHOUT CONTRAST REASON [...] Alexander Alcala MD at 15:30 EDT Tel [phone], Service support [phone], CC: Ayleen Storm MD; Tammie [place] MD Section Repairer: Signed Family History Unknown Family Member Name Dates Details Family Members In General Comments: healthy Status: Active Social History Name Dates Details Caffeine Use Comments: can of coke qod Status: Active 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 run 18 miles a week Status: Active Living Situation Comments: , Lives with spouse Status: Active No Drug Use Status: Active Non Drinker/No Alcohol Use Status: Active Non Smoker/No Tobacco Use Status: Active Tobacco use: Never smoker. Status: Active Smoking Status Name Dates Details Never smoker Vital Signs Date Test Result Details :35 Temperature 97.8 f Comments: Method: Temporal [...] 0.00 cm Results Date Description Value Details 6-Uvw-904804:50 Basic Metabolic Profile (BMP) Comments: [facility] [address] [place], [address] GAP 8 (Normal) Range: 5-15 CO2 27.0 [...] Comments: Please note revised GLUCOSE reference range xllenvgaf00/02/2018. 2-Yyk-359154:50 CBC W/Diff, Automated Comments: [facility] [address] [place], [address] Absolute Lymph 1.07 {X10_3/ul} (Normal) Range: 0.83-4.51 [...] 4.2-5.4 WBC 6.6 K/mm3 (Normal) Range: 4.4-11.0 11-Iaq-65140:24 MICROALBUMIN: CREATININE RATIO Comments: PATIENT WAS FASTINGPERFORMED BY: [facility] Mmebxx1229 [facility] [id number] ([id number]) AND (55302) Microalb/Creat Ratio 13.8 {mg/g_creat} (Normal) Range: 0.0-30.0 Microalbumin, Urine 24.0 ug/mL (Abnormal) Range: 0.0-17.0 Creatinine, Urine 173.4 mg/dL (Normal) Range: 15.0-278.0 :24 METABOLIC PANEL, COMPREHENSIVE Comments: PATIENT WAS FASTINGPERFORMED BY: [employer]70 [facility] [id number] (43181) ALT (SGPT) 19 [iU]/L (Normal) Range: 0-32 [...] mg/dL (Normal) Range: 65-99 :24 LIPID PANEL (82902) Comments: PATIENT WAS FASTINGPERFORMED BY: [employer]70 [facility] [id number]; [address] LDL/HDL Ratio 3.1 {ratio_units} (Normal) [...] Cholesterol, Total 214 mg/dL (Abnormal) Range: 100-199 49-Wqq-94447:24 CBC with auto diff Comments: PATIENT WAS FASTINGPERFORMED BY: [employer]est6370 [facility] [id number] Information: [id number] (13205) Immature Grans (Abs) 0.0 {x10E3/uL} (Normal) Range: [...] 3.77-5.28 WBC 5.3 {x10E3/uL} (Normal) Range: 3.4-10.8 06-Kpt-031902:30 Urinalysis, Complete Comments: Order Date: 12/06/14How was Urine Obtained? CLEAN CATCHTest performed at:[facility] [address] [place] [address] MUCUS, URINE 0 SEEN {/hpf} [...] Straw (Normal) 22-Jan-20128:49 Rapid Strep Test, Office (14197) Rapid Strep Test, Office Positive (Normal) 96-Zpg-48331:03 METABOLIC PANEL, COMPREHENSIVE Comments: PATIENT WAS FASTINGPERFORMED BY: [facility] Tbylpd8375 [facility] [id number] (38307) ALT (SGPT) 22 [iU]/L (Normal) Range: 0-40 [...] Glucose, Serum 91 mg/dL (Normal) Range: 65-99 64-Ykf-53935:03 CBC WITH MANUAL DIFF Comments: PATIENT WAS FASTINGPERFORMED BY: [facility] HospitalXmojae1760 [facility] [id number] Information: [id number] (72985) Baso (Absolute) 0.0 {x10E3/uL} (Normal) Range: 0.0-0.2 [...] 5.0 {x10E3/uL} (Normal) Range: 4.0-10.5 :03 TSH (13177) Comments: PATIENT WAS FASTINGPERFORMED BY: [facility] Kcjabn1756 [facility] [id number] TSH 1.390 {uIU/mL} (Normal) Range: 0.450-4.500 :03 LIPID PANEL (79937) Comments: PATIENT WAS FASTINGPERFORMED BY: [facility] Rzppbg7574 [facility] [id number] LDL/HDL Ratio 4.0 {ratio_units} (Abnormal) Range: 0.0-3.2 LDL Cholesterol Calc 171 mg/dL (Abnormal) Range: 0-99 VLDL Cholesterol Jorge Luis 50 mg/dL (Abnormal) Range: 5-40 HDL Cholesterol 43 mg/dL (Normal) Comments: According to ATP-III Guidelines, HDL-C >59 mg/dL is considered anegative risk factor for CHD. Triglycerides 248 mg/dL (Abnormal) Range: 0-149 Cholesterol, Total 264 mg/dL (Abnormal) Range: 100-199 05-Xih-88976:12 LQD PAP 239397 ADEQ Comment (Normal) Comments: Satisfactory for evaluation. Endocervical component may not bedistinguished in cases of atrophy. COMM . (Normal) DIAGN Comment (Normal) Comments: NEGATIVE FOR INTRAEPITHELIAL LESION AND MALIGNANCY.CELLULAR CHANGES ASSOCIATED WITH ATROPHY ARE PRESENT. HPV RFLX Comment (Normal) Comments: The HPV DNA reflex criteria were not met with this specimenresult therefore, no HPV testing was performed. .Performed At: [address] [id number] PAPSMR Comment (Normal) Comments: The Pap smear is a screening test designed to aid in thedetection of premalignant and malignant conditions of theuterine cervix. It is not a diagnostic procedure andshould not be used as the sole means of detecting cervicalcancer. Both false-positive and false-negative reports dooccur. . PERFORM Comment (Normal) Comments: Vandana Aaron, Metallurgical Specialist (ASC) 6-Hhi-492510:22 [facility] DIGITAL & CAD Radiology Report See Note (Normal) Comments: Exam Number: [id number] MAMMOGRAM, UNILATERAL LEFT DIAGNOSTIC DIGITAL AND CAD [...] mammograms werealso examined with computer-aided detection software ([employer], [employer] Reported By: LIZET CONRAD M.D. :38 [...] mg/dL VLDL 49 mg/dL (Abnormal) Range: 5-40 :38 [facility] DIAG DIGITAL & CAD Radiology Report See Note (Normal) Comments: Exam Number: [id number] MAMMOGRAM, BILATERAL DIAGNOSTIC DIGITAL AND CAD HISTORYAbnormal [...] werealso exa mined with computer-aided detection software ([employer] Reported By: LIZET CONRAD M.D. 26-Dbz-718329:53 [facility] SCRN DIGITAL & CAD Radiology Report See Note (Normal) Comments: Exam Number: [id number] MAMMOGRAM, BILATERAL SCREENING DIGITAL AND CAD HISTORYRoutine [...] reported having had a previous [place]ogramperformed in [place], [place]. That was performed 17 years ago [...] mammograms werealso examined with computer-aided detection software ([employer], [employer] Reported By: LIZET CONRAD M.D. :08 ABDOMEN W/WO CONTRAST Radiology Report See Note (Normal) Comments: Exam Number: [id number] CT ABDOMEN WITHOUT AND WITH INTRAVENOUS CONTRAST [...] 2006 scan. Reported By: HEATH FREED M.D. 15-Opj-427926:45 BMP Comments: COMMENTS: BED 6 DR White*: [...] Plan of Care Name Dates Details Instructions Back pain, lumbosacral : Reviewed Cushion Filler Letter Indication: Back pain, lumbosacral Back pain, [...] woman exam Planned Observations Thin prep Pap (20867)Indication: Well woman exam On: 61-Oww-87712:43 Request TSH (55255)Indication: Hyperlipidemia On: :33 Request Metabolic Panel, Comprehensive (06845)Indication: Hyperlipidemia On: :29 Request Lipid Panel (38077)Indication: Hyperlipidemia On: :29 Request Lipid Panel (71400)Indication: WWV On: :27 Request Glucose (20622)Indication: WWV On: :27 Request Planned Encounters Medical; 1 Week FU - On: 06-May-2018 7:00 [facility] Terri Rich Planned Procedures Radiology - Lumbar SpineBy: Hilario On: 03-May-2018 Intent Terri Radiology - Hip - LeftBy: Hilario On: 03-May-2018 Intent Terri PHYSICAL THERAPY (96691)By: Hilario On: 03-May-2018 Intent Terri MAMMOGRAM, SCREENING, BOTH BREAST On: 07-Jun-2015 Intent (08495)By: Tammie Durham MD, MD, Dana M EKG (05757)By: Anu Vega DO On: 20-May-2010 Intent Comments: nsr no acute changes Pulse Oximetry (55332)By: Marva On: 16-Mar-2009 Intent Tammie OLIVARES MD, Dana M Aerosol Treatment (39595)By: Marva On: 16-Mar-2009 Intent Tammie OLIVARES MD, Dana M Pulse Oximetry (70059)By: Rd On: 16-Mar-2009 Intent MARIE MAMMOGRAM, SCREENING, BOTH BREASTS On: 02-Dec-2007 Intent (98672)By: Tammie Durham MD, MD, Dana M CT - AbdomenBy: Tammie Durham MD On: 13-Oct-2006 Intent Marva OLIVARES Tammie Fritz Comments: attn liver and kidney cyst follow up in three months Instructions Name Dates Details Current nonsmoker (Renamed [...] Instructions Indication: Hypertension Encounters Office Visit On: 03-May-2018 9:31 Encounter Reason: [...] and biliary passages (235.3), Mixed hyperlipidemia (272.2), [facility] V72.31 [facility] Office [...] for include depression. Encounter Diagnosis: Depression/Anxiety (300.4), [facility] Office Visit [...] biliary passages (235.3) [facility] Payers MedicareAnthem/Medicare Adv Annabella Cisneros; anh guarantor
== END ==
PROVIDERS: Family Provider Internal Medicine; PCP Internal Medicine; Referring Provider Nurse Practitioner; Visit Provider Nurse Practitioner
DX: M25.552 Pain in left hip (principal); M54.32 Sciatica, left side
CPT/HCPCS: 72148; 72195

== ENCOUNTER 2018-07-09 14:00 | Outpatient (RCR) | payer MEDICARE, BC, SELFPAY ==
--- NOTE | 2018-05-05 16:06 | HP.PTEVAL ---
Patient's Visit Information TEA BURNS is a 68 year old F referred to Physical Therapy by ALIE Martini with a diagnosis of LEFT HIP PAIN, LEFT SCIATICA AND LUMBOSACRAL BACK PAIN.. Date of Evaluation: 05/05/18 Physical Therapist: Laura Diana Visit Plan Frequency: 2-3x /Week Duration: 4-6 Weeks Plan: MODALITIES NEEDED. POSTURE CORRECTION/STRENGTHENING, INSTRUCTION IN APPROPRIATE BODY MECHANICS AND ACTIVITY MODIFICATIONS. DLS STARTING WITH A NEUTRAL SPINE PROGRESSING ROM TOLERATED. HIEN LE ROM, STRETCHING AND STRENGTHENING. HEP INSTRUCTION. 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 OFF WORK CURRENTLY DUE TO MOTHER PASSING AWAY YESTERDAY AND HOPING SHE WILL BE ABLE TO GET BACK TO WORK NEXT Thursday05/11/18. Disability: N0. Present symptoms: LEFT BUTTOCK PAIN, LEFT GROIN PAIN, LEFT THIGH PAIN - STOPS AT THE KNEE. PATIENT ALSO HAS NUMBESS AND TINGLING IN THE FRONT OF HER LEFT THIGH. HER LEFT LEG DOESN'T REALLY FEEL WEAK THOUGH. SHE REPORTS SHE DOES NOT HAVE ANY LOW BACK PAIN AND THAT SHE HAS BEEN TRYING TO TELL EVERYONE THAT. NO RIGHT LE SX'S. Present since: APR 14 2018. Pain Scale: WORST 10/10, LEAST 5/10. Currently: 5/10. Commenced as a result of: NO APPARENT REASON. Symptoms at onset: LEFT BUTTOCK AND LEFT GROIN. Worse: RUNNING, TRYING TO STAND UP STRAIGHT, WALKING, LIFTING, TWISTING, GETTING IN/OUT OF CAR. TRYING TO SLEEP IN BED. Better: LYING ON COUCH WITH HEAD UP, HEAT, EXCEDERIN, OXICODONE, GABAPENTIN, MALOXICAM. Disturbed sleep: YES. Previous history/Previous treatment: NO BACK SURGERY. NO CORINNE, NO CHIRO. NO PHYSICAL THERAPY. PATIENT DENIES ANY HISTORY OF LOW BACK PROBLEMS. PATIENT ALSO DENIES ANY HISTORY OF HIP PROBLEMS. Coughing/sneezing/straining: NO. Gait: PATIENT REPORTS WALKING IS DIFFICULT AND SHE CAN NOT WALK AT A NORMAL PACE AND SHE CAN NOT STAND UP STRAIGHT. SHE LIMPS BECAUSE OF THE PAIN. Difficulty initiating urinatin: NO. Accidents: NO. Unexplained weight loss: NO. Imaging: NORMAL X-RAY OF PELVIS AND LEFT HIP. ABDOMINAL CAT SCAN ALSO APPEARS NORMAL. LUMBAR X-RAY 05/03/18: FINDINGS: Normal lumbar lordosis. There is no substantial scoliosis. There is. anterolisthesis of L4 and L5 which is unchanged from the prior exam. The. remainder the alignment is preserved. There is mild endplate spondylosis and disc space narrowing at multiple. levels. This appears unchanged in degree from the there is facet joint. degenerative change. There is no evidence of acute fracture or loss of. vertebral axial height. There is no demonstrated spondylolysis of the pars. interarticulares. There is atherosclerotic calcification of the abdominal aorta without a. demonstrated aneurysm. PMH: UNREMARKABLE. Recent major surgery: NO. PLOF (Prior Level of Function): UNLIMITED. - Objective Sitting/Standing Posture: POOR. PATIENT IS UNABLE TO SIT OR STAND UP STRAIGHT. Lordosis: NORMAL. Lateral shift: NO. Relevant shift: N/A. Active Correction of posture: WORSE. Other Observations: INDEP GAIT INTO PT WITHOUT ANY ASSISTIVE DEVICES LIMPING ON THE LEFT LE AND WITH DECREASED CADANCE AND INCREASED TRUNK FLEX. NO FULLY EXTENDING LEFT HIP. Motor deficit: RIGHT LE STRENGTH 5/5 WITH MMT'ING EXCEPT RIGHT HIP 4/5 PROVOKING PAIN LEFT ANTERIOR HIP. LLE STRENGTH: HIP 4/5 WITH ONLY MILD INCREASED PAIN WITH FLEX TESTING BUT NOT ABD, ADD, IR OR ER. , KNEE EXT 4+/5, KNEE FLEX 5/5, ANKLE DORSIFLEXION 4/5. LEFT ANTERIOR HIP PAIN WITH HIP FLEX TESTING BUT ONLY MILDLY INCREASES WITH MMT'ING OF THE REST OF HER LLE. Sensory deficit: NO. ROM deficit: DECREASED LEFT HIP EXTENSION IN STANDING. Reflexes: RIGHT LE 2/3, LEFT QUAD AND ACHILLES 1/2. Dural Signs: POSTIVE LLE. NEGATIVE RIGHT. Lumbar mvmt loss: flex - MOD. ext - BUBBA. R SG - MOD. L SG - BUBBA. Core strength: POOR. Palpation: SHE REALLY DOES NOT HAVE ANY ACUTE TENDERNESS OF HER THORACIC SPINE, LUMBAR SPINE, SACRAL AREAS, PELVIS, GREATER TROCH OR BUTTOCKS BUT SHE IS TENDER WITH PALPATION OF THE PROXIMAL LEFT FEMUR AND ANTERIOR HIP. TREATMENT: GAIT TRAINING WITH STRAIGHT CANE TO IMPROVE SAFETY AND DECREASE LLE PAIN. PATIENT ABLE TO DEMO GOOD SEQUENCING AFTER INSTRUCTION GIVEN AND DEVIATIONS IMPROVED WITH CANE ALONG WITH SAFETY AND PAIN. PATIENT REPORTS SHE HAS A CANE AND WALKER AT HOME. - Goals Goal 1:: DECREASE C/O LLE SX'S. Goal Time Frame: 4-6 Weeks Goal 2:: IMRPOVE SITTING, STANDING, WALKING, BENDING, ADL AND SLEEP FUNCTION Goal Time Frame: 4-6 Weeks Goal 3:: INSTRUCT IN PROPHYLAXIS Goal Time Frame: 4-6 Weeks - Rehabilitation Potential Rehabilitation Potential: Fair - Anticipated Interventions Patient/Client Instruction: Educate patient on: Condition, Plan of Care, Risk Factors, Benefits of Fitness Program For the Purpose of:: To improve self management Therapeutic Exercise to Include: Strength training, Body mechanics, Postural training, Flexibilty training, Gait and locomotor training, Passive ROM, Active ROM, Dynamic Lumbar Stabilization For the Purpose of:: To decrease pain, To increase ROM, To improve muscle performance and motor function, To improve ability to perform ADL's, To increase tolerance to activity/condition/position, To improve ability of physical actions for home/community/work/leisure, To improve gait and locomotor functions Thermo therapy (hot pack): Yes Ultrasound (thermal/non thermal): Yes For the Purpose of:: To decrease pain, To decrease swelling/inflammation, To increase ROM, To improve nutrient delivery to tissue Thank you for the opportunity to evaluate your patient. For Medicare and Medicare HMO plans, please review the plan of care and approve it. It will need to be FAXED BACK to us at [phone] for Medicare purposes. Please let me know if there are questions or concerns regarding this plan of care. Physician Signature: Date:
--- NOTE | 2018-06-16 17:48 | HP.PTREVAL ---
Terri Rich, SHEEBA-C, It has been my pleasure to treat IRISH BURNS over the last 9 visits for LEFT HIP PAIN, LEFT SCIATICA AND LUMBOSACRAL BACK PAIN.. Please see the progress note below for an update on the physical therapy plan of care! Subjective: PATIENT REPORTS SHE CAN'T GET AN INJECTION UNTIL Jun BECAUSE THEY ARE BOOKED. STATES SHE EVEN TRIED TO CALL DR. SIMPSON AND HE IS ON VACATION AND THEN BOOKED TOO. SHE REPORTS SHE IS WORSENING. PAIN DOWN INSIDE OF LEFT LOWER LEG TO ANKLE. SHE REPORTS THE PA AT DR. AVERY'S OFFICE TOLDER SHE HAS DEGENERATION AND SPONDYLOSIS. SHE REPORTS SHE IS VERY UPSET TODAY. SHE STATES SHE IS READY TO QUIT HER JOB DUE TO THE PAIN. STATES SHE HS BEEN DOING HER HOME EX'S AND THEY ARE GOOD BUT SHE IS NOT IN THE RIGHT MIND SET TO EX HERE TODAY. SHE REPORTS SHE IS DESPERATE FOR RELIEF SO SHE MIGHT GO TO HER FRIEND THAT IS A CHIROPRACTOR. SHE REPORTS SHE FEELS LIKE SHE IS DOING MORE DAMAGE TO HER LEFT KNEE EVERY TIME SHE WALKS ON IT BUT ISN'T USING THE CANE ANYMORE. STATES SHE IS STILL VERY UPSET WITH COMPREHENSIVE MEDICINE ABOUT LACK OF PAIN MEDICINE AND HAS NOT BEEN BACK TO SEE THEM SINCE MAY 12 2018. NO RIGHT LE SX'S STILL. REPORTS SHE WAS NO BETTER AND NO WORSE AFTER LAST PT SESSION OVER-ALL. Objective/Function: PATIENT IS VERY UPSET. STATES SHE READ ABOUT GABAPENTIN AND DOES NOT WANT TO TAKE IT. STATES SHE DOES NOT UNDERSTAND WHY THAT WAS PRESCRIBED INSTEAD OF SOMETHING ELSE FOR PAIN. PATIENT AMBULATES INDEP'LY INTO PT TODAY WITHOUT ANY ASSISTIVE DEVICES AND NO LIMPING TODAY BUT DECREASED HIEN STRIDE LENGTH. PATIENT STATING SHE WANTED TO CANCEL BUT FELT TOO BAD CANCELLING LAST MINUTE BUT SHE REALLY ISN'T IN THE STATE OF MIND TO BE HERE TODAY. Sitting/Standing Posture: POOR. PATIENT IS UNABLE TO SIT OR STAND UP STRAIGHT. Lordosis: NORMAL. Lateral shift: YES. Relevant shift: N/A - ABLE TO PASS MID-LINE TO LEFT. Active Correction of posture: NE. Motor deficit: RIGHT LE STRENGTH 5/5 WITH MMT'ING EXCEPT RIGHT HIP 4/5 PROVOKING PAIN LEFT THIGH. LLE STRENGTH: HIP 4-/5 WITH MODERATE INCREASED PAIN WITH FLEX TESTING BUT NOT ABD, ADD, IR OR ER. , KNEE EXT 4+/5, KNEE FLEX 5/5, ANKLE DORSIFLEXION 4/5. LEFT HIP AND KNEE TESTING PROVOKES INCREASED LEFT KNEE AND LOWER LEG PAIN. Sensory deficit: DECREASED LIGHT TOUCH LEFT MEDIAL LOWER LEG COMPARED TO RIGHT. ROM deficit: NO BUT TESTING NEEDS TO BE DONE WITH TENSION OF BACK TO SEE FULL LE ROM. Reflexes: RIGHT LE 2/3, LEFT QUAD AND ACHILLES 1/2. Dural Signs: POSTIVE LLE. NEGATIVE RIGHT. Lumbar mvmt loss: flex - MOD TO BUBBA TENDING TO BEND LEFT KNEE. ext - MOD. R SG - MIN. L SG - BUBBA. Core strength: POOR. LUMBAR OSWESTRY SCORE HAS NOT IMPROVED. STILL RECOMMEND CANE FOR PAIN RELEIF AND SAFETY DUE TO LLE PAIN AND WEAKNESS. Plan Plan: THIS PT RECOMMENDS PHYSICIAN RE-ASSESSMENT. PATIENT RELUCTANT BUT AGREEABLE. THIS PT RECOMMENDS PATIENT CONSULT COMPREHENSIVE MEDICAL BEFORE TRYING CHIROPRACTOR. CONT PT TOLERATED/INDICATED AND AGREEABLE TO PATIENT. Goals Goal 1:: DECREASE C/O LLE SX'S. Goal Time Frame: 4-6 Weeks Goal Progress: Not Progressing Goal 2:: IMRPOVE SITTING, STANDING, WALKING, BENDING, ADL AND SLEEP FUNCTION Goal Time Frame: 4-6 Weeks Goal Progress: Not Progressing Goal 3:: INSTRUCT IN PROPHYLAXIS Goal Time Frame: 4-6 Weeks Goal Progress: Not Progressing Anticipated Interventions Patient/Client Instruction: Educate patient on: Condition, Plan of Care, Risk Factors, Benefits of Fitness Program For the Purpose of:: To improve self management Therapeutic Exercise to Include: Strength training, Body mechanics, Postural training, Flexibilty training, Gait and locomotor training, Passive ROM, Active ROM, Dynamic Lumbar Stabilization For the Purpose of:: To decrease pain, To increase ROM, To improve muscle performance and motor function, To improve ability to perform ADL's, To increase tolerance to activity/condition/position, To improve ability of physical actions for home/community/work/leisure, To improve gait and locomotor functions Thermo therapy (hot pack): Yes Ultrasound (thermal/non thermal): Yes For the Purpose of:: To decrease pain, To decrease swelling/inflammation, To increase ROM, To improve nutrient delivery to tissue Please do not hesitate to contact me at [phone] by phone or if you have questions or concerns regarding this new plan of care! Sincerely, Laura Anand, PT, Cert MDT
--- NOTE | 2018-07-09 14:39 | HP.PTDCSUM ---
HP - PT D/C Summary It has been my pleasure to treat [facility] BUR[facility] under orders from Terri Rich NP-C, for the diagnosis of LEFT HIP PAIN, LEFT SCIATICA AND LUMBOSACRAL BACK PAIN. for a total of 12 visit(s). Discharge Date: Please see the following information for a summary of their discharge status. - Subjective Subjective: PATIENT REPORTS SHE CALLED AND POSTPONED HER INJECTION TO AUG 13 2018 BECAUSE SHE IS SLOWLY GETTING BETTER. PATIENT REPORTS THAT SHE THINKS THE HOME EX'S ARE MAKING A DIFFERENCE AND SHE ISN'T SURE SHE NEEDS ANY MORE PT RIGHT NOW. SHE REPORTS SHE THINKS SHE HAS TOOLS TO CONTINUE TO GET BETTER AND STRONGER NOW. SLEEPING IN THE BED MAINLY NOW AND IT FEELS A LOT BETTER IN BED. - Pain LEFT THIGH Pain Intensity (Out of 10): 0 LEFT BUTTOCK Pain Intensity (Out of 10): 0 LEFT KNEE Pain Intensity (Out of 10): 1 LEFT LEG (BELOW KNEE) Pain Intensity (Out of 10): 0 LOW BACK Pain Intensity (Out of 10): 0 - Overall Improvement % Improvement: 85 - Objective Objective/Function: PATIENT AMBULATES INDEP'LY INTO PT TODAY WITH GOOD CADANCE WITHOUT ANY ASSISTIVE DEVICES AND NO LIMPING TODAY. SHE REPORTS SHE FEELS SHE HAS TURNED A CORNER. Sitting/Standing Posture: FAIR. PATIENT IS NOW ABLE TO SIT UP AND STAND UP MUCH STRAIGHTER. Lordosis: NORMAL. Lateral shift: NO. Relevant shift: NO. Motor deficit: RIGHT LE STRENGTH 5/5 WITH MMT'ING. LLE STRENGTH: HIP 4/5, KNEE EXT 4+/5, KNEE FLEX 5/5, ANKLE DORSIFLEXION 5/5. ROM deficit: NO. Dural Signs: MILDLY POSITIVE LLE. Lumbar mvmt loss: flex - MIN. ext - MOD. R SG - MIN. L SG - MIN TO MOD. Core strength: FAIR. LUMBAR OSWESTRY SCORE HAS IMPROVED FROM 23 AT INITIAL EVAL TO 2 TODAY DURING THIS EPISODE OF CARE. - Goals Goal 1:: DECREASE C/O LLE SX'S. Goal Progress: Goal Met Goal 2:: IMRPOVE SITTING, STANDING, WALKING, BENDING, ADL AND SLEEP FUNCTION Goal Progress: Goal Met Goal 3:: INSTRUCT IN PROPHYLAXIS Goal Progress: Goal Met - Plan Plan: D/C TO [facility] AND PHYSICIAN FOLLOW UPS NEEDED. PATIENT AGREEABLE. - D/C Information If there are questions or concerns regarding this patient's physical therapy, please feel free to call me at [phone]. Thank you for the referral of this patient. Sincerely, Laura Anand PT, Cert MDT
== END 2018-07-09 19:00 | disposition home or self-care (01) ==
LOC: PT 14:00
PROVIDERS: Family Provider Internal Medicine; PCP Internal Medicine; Referring Provider Nurse Practitioner Gerontology; Visit Provider Nurse Practitioner Gerontology
DX: M54.5 Low back pain (principal); M54.32 Sciatica, left side; M25.552 Pain in left hip
CPT/HCPCS: 97035; 97110; 97116; 97140; 97162; 97530

== ENCOUNTER → 2018-10-13 09:53 | Outpatient (CLI) | payer MEDICARE, BC, SELFPAY ==
--- NOTE | 2018-10-13 | CYSPIN_PTH ---
PATIENT: IRISH BURNS LOC: [place] U#:[id number] AGE/SX: 75/F ROOM: RE10/13/[address]: ALIE Bell : 1950 BED: DIS: SPEC #: [id number] RECD: 10/13/18 10:00 STATUS: SANTANA ELAYNE #: [id number] CONOR: 10/13/18 00:[address]: Bella Shine NP DEPT: CYTOLOGY RECD BY: Mane Peterson ENTERED: 10/13/18 12:57 SP TYPE: CYSPIN FL OTHR DR: Dr. Anu Vega, Tissues: Urine Procedures: Pap Stain (control) Special Stain Group II Cytospin Fluid HEADER OPERATION: Not noted PRE-OP DIAGNOSIS: Hematuria TISSUE SUBMITTED: Urine for cytology DIAGNOSIS CYTOLOGY Urine for cytology (cytospin): Rare clusters of atypical urothelial cells present. AM:omid 10/14/18 COMMENT The findings are nonspecific and could represent a variety of conditions including infection, urolithiasis, instrumentation and low grade urothelial neoplasm. Clinical correlation is necessary. Case has been reviewed in consultation with Dr. Coronado who concurs with the above diagnosis. IDC:SJ CYTOLOGY STUDY Slides are reviewed. CYTOLOGY GROSS Received is 30 ml of clear yellow fluid labeled with the patient's name and and designated per the requisition as urine. Submitted for cytology preparation. / 10/13/18 TC:? CPT: 38672
--- NOTE | 2018-10-13 09:57 | CT_ITS ---
STUDY: CT ABDOMEN AND PELVIS WITH AND WITHOUT CONTRAST REASON FOR EXAM: Female, 68 years old. Gross hematuria RADIATION DOSAGE (If Supplied By Facility): CTDIvol = ( 8.58 ) mGy, DLP = ( 701.10 ) mGycm TECHNIQUE: Transaxial images were obtained from the dome of the diaphragm to the symphysis pubis without oral contrast. 100 IV Isovue 300 was administered. Sagittal and coronal images were reconstructed. Individualized dose optimization techniques were used for this CT. COMPARISON: 04/30/2018 FINDINGS: The visualized lung bases are unremarkable. The visualized portions of the heart are within normal limits. Liver is unremarkable aside from stable low-density simple cysts. Largest again measures 1.4 cm and the left lobe. Normal gallbladder and extrahepatic biliary system. Normal spleen. Normal pancreas. Normal bilateral adrenal glands. No obstructive uropathy, there are punctate nonobstructing stones in both kidneys measuring between 1 and 2 mm. Stable simple renal cysts. Normal visualized stomach. Normal small intestine. There are a few scattered colonic diverticula. There is non-visualization of the appendix. There is diffuse atherosclerotic calcification of the abdominal aorta, without a demonstrated aneurysm. Normal inferior vena cava. Normal retroperitoneum. Normal urinary bladder. Uterus is still present, there is a suggestion of endometrial stripe thickening but this cannot be confirmed with CT. Consider dedicated pelvic sonogram for further evaluation. No suspicious cystic mass within the pelvis but there is dependent fluid Normal abdominal wall. There are diffuse degenerative changes of the visualized lumbar spine, and pelvis. There is a grade 1 spondylolisthesis at L4-5 CT/CT Abd/Pelvis W/WO Contrast IMPRESSION: No obstructive uropathy, there are scattered nonobstructing punctate calcifications in both kidneys. Stable hepatic and renal cysts. Chronic diverticulosis Uterus is still present, there is a suggestion of endometrial stripe thickening but this cannot be confirmed with CT. Recommend dedicated pelvic ultrasound for further evaluation. No suspicious cystic mass, there is dependent free fluid in the cul-de-sac. Degenerative bony changes with grade 1 spondylolisthesis at L4-5 Electronically Signed: Gabe Gonzalez MD at 10:43 EDT , Service support ,
[2018-10-13 10:10] LABS: CREATININE FINGERSTICK 0.8 mg/dL (0.55-1.02)
[2018-10-13 11:54] LABS: Cytology, Body Fluid / CSF SEE PATHOLOGY REPORT
== END ==
PROVIDERS: Family Provider Internal Medicine; PCP Internal Medicine; Referring Provider Nurse Practitioner Adult Health; Visit Provider Nurse Practitioner Adult Health
DX: R31.0 Gross hematuria (principal); R10.30 Lower abdominal pain, unspecified
CPT/HCPCS: 74178; 88108; 88313; Q9967

== ENCOUNTER → 2018-10-15 16:11 | Outpatient (CLI) | payer MEDICARE, BC, SELFPAY ==
--- NOTE | 2018-10-15 16:16 | US_ITS ---
STUDY: ULTRASOUND OF THE FEMALE PELVIS - COMPLETE REASON FOR EXAM: Female, 68 years old. Thickened endometrial echoes on CT scan. LMP: TECHNIQUE: Transabdominal and Transvaginal TECHNICAL QUALITY: Adequate. COMPARISON: CT scan 10/13/2018. FINDINGS: The uterus is retroverted and is in a midline position. The uterus measures 5.1 x 4.0 x 2.6 cm. Normal uterine cervix. The endometrium measures 5 mm in thickness, and is hyperechoic. There is no demonstrated endometrial mass. There is no demonstrated myometrial mass. I.U.D. - The patient does not have an I.U.D. The right ovary is visualized. The right ovary measures 2.1 x 0.9 x 0.9 cm. There is no right ovarian cyst or ovarian mass. There is no visualized right adnexal mass or complex lesion. There is normal arterial and normal venous vascularity. The left ovary is non-visualized. There is no fluid in the cul-de-sac. The pre void volume of the bladder was 253 ml. US/Pelvic (Non ) IMPRESSION: There is no definite abnormality seen. Left ovary was not seen. Electronically Signed: Angel Farah MD at 0:03 EDT , Service support ,
--- NOTE | 2018-10-15 16:30 | US_ITS ---
STUDY: ULTRASOUND OF THE FEMALE PELVIS - COMPLETE REASON FOR EXAM: Female, 68 years old. Thickened endometrial echoes on CT scan. LMP: TECHNIQUE: Transabdominal and Transvaginal TECHNICAL QUALITY: Adequate. COMPARISON: CT scan 10/13/2018. FINDINGS: The uterus is retroverted and is in a midline position. The uterus measures 5.1 x 4.0 x 2.6 cm. Normal uterine cervix. The endometrium measures 5 mm in thickness, and is hyperechoic. There is no demonstrated endometrial mass. There is no demonstrated myometrial mass. I.U.D. - The patient does not have an I.U.D. The right ovary is visualized. The right ovary measures 2.1 x 0.9 x 0.9 cm. There is no right ovarian cyst or ovarian mass. There is no visualized right adnexal mass or complex lesion. There is normal arterial and normal venous vascularity. The left ovary is non-visualized. There is no fluid in the cul-de-sac. The pre void volume of the bladder was 253 ml. US/Transvaginal Non- IMPRESSION: There is no definite abnormality seen. Left ovary was not seen. Electronically Signed: Angel Farah MD at 0:03 EDT , Service support ,
== END ==
PROVIDERS: Family Provider Internal Medicine; PCP Internal Medicine; Referring Provider Internal Medicine; Visit Provider Internal Medicine
DX: R93.5 Abnormal findings on diagnostic imaging of other abdominal regions, including retroperitoneum (principal)
CPT/HCPCS: 76830; 76856; 93976

== ENCOUNTER → 2019-04-25 17:22 | Outpatient (CLI) | payer MEDICARE, BC, SELFPAY ==
--- NOTE | 2019-04-25 | CYSPIN_PTH ---
PATIENT: IRISH BURNS LOC: [facility] U#:[id number] AGE/SX: 75/F ROOM: RE04/25/[address]: Bella Shine : 1950 BED: DIS: SPEC #: [id number] RECD: 04/26/19 07:32 STATUS: SANTANA REColleen #: [id number] CONOR: 04/25/19 00:[address]: Bella Shine DEPT: CYTOLOGY RECD BY: Mane Peterson ENTERED: 04/26/19 07:33 SP TYPE: CYSPIN FL OTHR DR: Dr. Anu Vega, DO Tissues: Urine Procedures: Pap Stain (control) Special Stain Group II Cytospin Fluid HEADER OPERATION: Not noted PRE-OP DIAGNOSIS: R82.998 TISSUE SUBMITTED: Urine for cytology DIAGNOSIS CYTOLOGY Urine for cytology (cytospin): Occasional atypical urothelial cells present. Acute and chronic inflammation. AM:omid 04/27/19 COMMENT The findings are nonspecific and could represent a variety of conditions including infection, urolithiasis, instrumentation and low grade urothelial neoplasm. Clinical correlation is necessary. Case has been reviewed in consultation with Dr. Coronado who concurs with the above diagnosis. IDC:[facility] CYTOLOGY STUDY Slides are reviewed. CYTOLOGY GROSS Received is 32 ml of clear yellow fluid labeled with the patient's name and and designated per the requisition as urine. Submitted for cytology preparation. / omid 04/26/19 TC:? CPT: 37485
[2019-04-25 17:23] LABS: Cytology, Body Fluid / CSF SEE PATHOLOGY REPORT
== END ==
PROVIDERS: Family Provider Internal Medicine; PCP Internal Medicine
DX: R82.998 Other abnormal findings in urine (principal)
CPT/HCPCS: 87086; 87088; 88108; 88313

== ENCOUNTER 2019-05-25 10:50 | Day surgery (SDC) | payer MEDICARE, BC, SELFPAY ==
[2019-05-25] VITALS (7 sets, daily range): BP systolic 106–147; BP diastolic 64–81; PULSE 58–78; RESP 16–18; TEMP 36.4–36.7; O2SAT 97–100; BMI 20.2
[2019-05-25] MEDS: Lactated Ringers 1,000 ML 100 ML IV (11:37)
[2019-05-25] MEDS: Cefazolin 2 GM in 0.9% Normal Saline 100 ML IV (12:37)
--- NOTE | 2019-05-25 12:46 | DCINST_ITS ---
Discharge Diet: Light diet - advance as tolerated Discharge Activity: Return to Normal Activity Call your doctor if your incision/area has: Sudden Increased Bleeding Call your doctor if you observe: Fever of 101 or Higher Allergies/Adverse Reactions: Allergies No Known Allergies Allergy (Verified 05/25/19 11:27) Medications to take at Discharge Gabapentin [Neurontin] 300 mg PO DAILY 05/23/19 Ciprofloxacin [Cipro] 500 mg PO BID #6 tab 05/25/19 Hydrocodone/Acetaminophen [[place] 5-325 Tablet] 1 ea PO Q4H PRN PRN 5 Days #14 tab 05/25/19 The following prescriptions were given: Ciprofloxacin [Cipro] 500 mg PO BID #6 tab Prescription Printed Hydrocodone/Acetaminophen [[place] 5-325 Tablet] 1 ea PO Q4H PRN PRN 5 Days #14 tab PRN Reason: Pain Score 1-10/10 Prescription Printed Primary Care Physician: Anu Vega DO [Primary Care Provider] - Test Results: Test results from this visit will be discussed in further detail at your follow-up appointment, if applicable. Please Follow Up With: Kvng Marie MD When: please call to make an appointment.
--- NOTE | 2019-05-25 12:56 | PCM.OPRPT ---
Report of Operation Date of Procedure: 05/25/19 Pre-Operative Diagnosis: Distal left ureteral calculi Post-Operative Diagnosis: No stone Surgery/Procedure Performed:: Cystoscopy left retrograde pyelogram interpretation fluoroscopic images. Description of Surgical Findings:: 69-year-old female is been having pain on the left side off-and-on on cystoscopy she is found to have a stone that was stuck in the distal ureter she presents now for possible ureteroscopy and laser lithotripsy of the stone she was taken back to the operating room at the smooth induction of anesthesia she was placed in dorsolithotomy position the urethra vaginal area prepped and draped in usual fashion, went went inside the bladder the trigone was normal the bladder was normal I then cannulated the left ureteral orifice performed retrograde pyelogram I could not see the stone with a retrograde pyelogram there is good drainage from the urinary system the left side looks like the stone is passed spontaneously and therefore at that point we drained the bladder and the patient's procedure was over she had passed her stone. Type of Anesthesia:: General Drains: no stent - Admit VTE Documentation VTE Present on Admission: No VTE Mechan Device Prophylaxis: SCD's
== END 2019-05-25 14:35 | disposition home or self-care (01) ==
LOC: SDC 10:50 → AC 10:52
PROVIDERS: Family Provider Internal Medicine; PCP Internal Medicine; Referring Provider Urology; Visit Provider Urology
PROC: 0TJ98ZZ Inspection of Ureter, Via Natural or Artificial Opening Endoscopic (ICD-10-PCS; CPT 52352; principal; 2019-05-25 13:25)
DX: N20.1 Calculus of ureter (principal); Z87.442 Personal history of urinary calculi
CPT/HCPCS: 00910; 52005; 76000; J7120; J2405

== ENCOUNTER → 2019-09-06 12:49 | Outpatient (CLI) | payer MEDICARE, BC, SELFPAY ==
[2019-07-13 07:12] VITALS: BMI 20.2
--- NOTE | 2019-09-06 12:52 | BI_ITS ---
MAMMOGRAPHY - BILATERAL SCREENING REASON FOR EXAM: Female, 69 years old. Routine annual screening examination. PERTINENT HISTORY: Non-contributory. TECHNIQUE: Digital bilateral breast ishaan (3D mammographic acquisition) in the CC and MLO projections. 2-D mediolateral oblique (MLO) and craniocaudad (CC) views of both breasts were obtained. CAD: Full Field Digital Mammography with Computer Added Detection was performed. COMPARISON: Comparison is made with prior examination dated December 20, 2008. FINDINGS: Breast Composition: The breasts are heterogeneously dense, which may obscure small masses. There are no dominant masses or suspicious calcifications. No other significant abnormalities are identified. There has been no significant change since the prior study. BI/SCREEN MAMM (CAD) W/ISHAAN BILAT IMPRESSION: Stable bilateral screening mammogram. Yearly follow-up mammogram recommended. (A) ASSESSMENT CATEGORY: BIRADS Category 1: Negative. A letter regarding these results will be sent to the patient by the facility within 30 days. Approximately 10% of breast cancers are not detected by mammography. A normal mammogram should not delay biopsy of a clinically suspicious abnormality. [id number] Electronically Signed: Alexander Alcala, at 14:30 EDT , Service support ,
--- NOTE | 2019-09-06 12:53 | BD_ITS ---
STUDY: DUAL ENERGY X-RAY ABSORPTIOMETRY / DXA REASON FOR EXAM: Female, 69 years old. 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 COMPARISON: None. FINDINGS: Lumbar Spine (L1-L4): g/cm2 (1.029) / T-score (-1.3) / Z-score (0.4) Findings are suggestive of osteopenia with a low fracture risk. Left Femur Total: g/cm2 (0.759) / T-score (-2.0) / Z-score (-0.5) Left Femoral Neck: g/cm2 (0.691) / T-score (-2.5) / Z-score (-0.8) Right Femur Total: g/cm2 (0.756) / T-score (-2.0) / Z-score (-0.6) Right Femoral Neck: g/cm2 (0.736) / T-score (-2.2) / Z-score (-0.5) BD/Dexa Bone Density Study IMPRESSION: The patient is considered osteopenic as outlined below according to World Ayad Organization (WHO) criteria with a high fracture risk. Reference Information: The T-score is the number of standard deviations above or below the standard which is normal for young adults at their peak bone mineral density. The World Health Organization (WHO) interprets the T-scores as follows: Above -1 Normal bone density Between -1 and -2.5 Osteopenia Equal to / or below -2.5 Osteoporosis As a practical clinical guideline, osteopenia may be graded as follows: Mild -1 through -1.5 Moderate -1.6 through -2.0 Severe -2.1 through -2.4 The Z-score is the number of standard deviations above or below age-matched controls. A Z-score of less than -1.5 would be considered abnormal. References: 1. NIH Osteoporosis and Related Bone Diseases http://www.osteo.org 2. International Society for Clinical Densitometry http://www.iscd.org 3. National Osteoporosis Foundation http://www.nof.org Electronically Signed: Alexander Alcala, at 10:57 EDT , Service support ,
== END ==
PROVIDERS: PCP Internal Medicine; Referring Provider Nurse Practitioner; Visit Provider Nurse Practitioner
DX: Z12.31 Encounter for screening mammogram for malignant neoplasm of breast (principal); Z78.0 Asymptomatic menopausal state
CPT/HCPCS: 77063; 77067; 77080